=== PATIENT | female | born 1985 | race Caucasian/White ===

== ENCOUNTER 2016-05-01 09:04 | Inpatient (IN) | payer OTHER ==
[2016-05-01] MEDS ORDERED: SODIUM CHLORIDE 1,000 ML IV STA (09:27)
--- NOTE | 2016-05-01 09:28 | PDOC ---
History of Present Illness - General Chief Complaint: Blood Sugar Problem Stated Complaint: ABD PAIN, VOMITING Time Seen by Provider: 05/01/16 09:26 History Source: Patient Exam Limitations: No Limitations - History of Present Illness Initial Comments: 05/01/16 09:27 CHIEF COMPLAINT: Abdominal pain HISTORY OF PRESENT ILLNESS: This is a 31 year old female with IDDM and prior episodes of DKA who presents complaining of generalized abdominal pain and vomiting that woke her from sleep today. She also notes urinary frequency and some incontinence. She did run out of her insulin for about two weeks because of insurance issues, but resumed it earlier this month and has been complaint. She states that he glucose has been well-controlled since then. She attended a family alliance party yesterday and ate a bit more than normal, including rice, but otherwise denies any dietary indiscretions. V/s on arrival are notable for pulse of 122 and RR 24. PCP: Dr. Leal Endocrine: Previously followed with Dr. Beltran REVIEW OF SYSTEMS: GENERAL/CONSTITUTIONAL: Chills, no fever. No weakness. No weight change. HEAD, EYES, EARS, NOSE AND THROAT: No change in vision. No ear pain or discharge. No sore throat. CARDIOVASCULAR: No chest pain or palpitations. RESPIRATORY: No cough, wheezing, or shortness of breath. GASTROINTESTINAL: Generalized abdominal pain, vomiting. GENITOURINARY: Urinary frequency, incontinence. MUSCULOSKELETAL: No joint or muscle swelling or pain. No neck or back pain. SKIN: No rash or easy bruising. NEUROLOGIC: No headache, vertigo, loss of consciousness, or loss of sensation. PSYCHIATRIC: No depression or anxiety. ENDOCRINE: No increased thirst. No abnormal weight change. HEMATOLOGIC/LYMPHATIC: No anemia, easy bleeding, or history of blood clots. ALLERGIC/IMMUNOLOGIC: No hives or skin allergy. No latex allergy. PHYSICAL EXAM: GENERAL: The patient is awake, alert, and fully oriented, in no acute distress. HEAD: Normal with no signs of trauma. ENT: Pupils equal, round and reactive to light, extraocular movements intact, sclera anicteric, conjunctiva clear. Neck supple. LUNGS: Tachypneic. Clear to auscultation bilaterally. Normal excursion. No respiratory distress or use of accessory muscles. CV: RRR, S1/S2, no MRG. Cap refill < 2 sec. ABDOMEN: Soft, non-distended, no focal tenderness. EXTREMITIES: Normal range of motion, no edema. NEUROLOGICAL: Normal speech, normal gait. CN II-XII grossly intact. PSYCH: Normal mood, normal affect. SKIN: Warm, dry, normal turgor, no rashes or lesions noted. Past History - Past Medical History Allergies/Adverse Reactions: Allergies Allergy/AdvReac Type Severity Reaction Status Date / Time No Known Allergies Allergy Verified 05/01/16 09:07 Home Medications: Ambulatory Orders Insulin (Levemir) [Levemir Flexpen -] 30 units SQ DAILY 09/13/14 Insulin Sliding Scale [Novolog Vial Sliding Scale -] 1 vial SQ TIDAC #7 units Anemia: No Asthma: Yes (stable) Cancer: No Cardiac Disorders: No CVA: No COPD: No CHF: No Dementia: No Diabetes: Yes (TYPE 1) GI Disorders: No Disorders: No HTN: No Hypercholesterolemia: No Liver Disease: No Suicide Attempt (Hx): No Seizures: No Thyroid Disease: No - Surgical History Abdominal Surgery: No Appendectomy: No Cardiac Surgery: No Cholecystectomy: No Gastric Stapling: No GI Surgery: No Lung Surgery: No Neurologic Surgery: No Orthopedic Surgery: No - Reproductive History (#): 11 Para: 4 Therapeutic (s) & number: Yes (4) Spontaneous : 2 - Immunization History Td Vaccination: Yes Immunization Up to Date: Yes - Psycho/Social/Smoking Cessation Hx Anxiety: No Suicidal Ideation: No Smoking Status: No Smoking History: Current some day smoker Years of Tobacco Use: 4 Have you smoked in the past 12 months: Yes Number of Cigarettes Smoked Daily: 1 Cigars Per Day: 0 Information on smoking cessation initiated: No 'Breaking Loose' booklet given: 04/14/13 Hx Alcohol Use: No Drug/Substance Use Hx: No Substance Use Type: None, Marijuana *Physical Exam - Vital Signs Last Vital Signs Temp Pulse Resp BP Pulse Ox 97 F L 122 H 18 121/65 100 05/01/16 09:07 05/01/16 09:07 05/01/16 09:07 05/01/16 09:07 05/01/16 09:07 Heart Score/ECG Review - ECG Intrepretation Comment:: 05/01/16 10:10 NSR at 81bpm ED Treatment Course - LABORATORY CBC & Chemistry Diagram: 05/01/16 09:45 05/01/16 09:45 Medical Decision Making - Medical Decision Making 05/01/16 09:42 A/P: 31 year old insulin-dependent diabetic with abdominal pain, vomiting, and tachypnea, r/o DKA. FS 334. 1. EKG (tachycardia) 2. Labs including chemistry, VBG, acetone, UA 3. IV fluids 4. Zofran 4mg IVP for nausea 5. Re-assess 05/01/16 10:11 pH 7.15 HCO3 7 Glucose 387 Gap 23 Insulin gtt started at 6 units/hr 05/01/16 11:17 Approved for ICU admission by Dr. Jacobo. *DC/Admit/Observation/Transfer Diagnosis at time of Disposition: DKA (diabetic ketoacidoses) Qualifiers: Diabetes mellitus type: type 1 Diabetes mellitus complication detail: without coma Qualified Code(s): E10.10 - Type 1 diabetes mellitus with ketoacidosis without coma - Discharge Dispostion Admit: Yes - Referrals Referrals: STAFF,NOT ON [Primary Care Provider] -
[2016-05-01] MEDS ORDERED: ONDANSETRON 4 MG/2 ML VIAL ONE (09:29)
[2016-05-01] MEDS ORDERED: ONDANSETRON 4 MG/2 ML VIAL IVPUSH ONE (09:34)
[2016-05-01 10:08] LABS: VENOUS BLOOD GAS HCO3 7.2 meq/L (19-25)
[2016-05-01 10:09] LABS: VENOUS PH 7.15 (7.32-7.42)
[2016-05-01] MEDS ORDERED: SODIUM CHLORIDE 1,000 ML IV SCH (10:15)
[2016-05-01 10:24] LABS: ALBUMIN 4.6 g/dl (3.4-5.0); ANION GAP 23 (8-16); BILIRUBIN,TOTAL 0.6 mg/dL (0.2-1.0); CALCIUM 9.1 mg/dL (8.5-10.1); CO2 10 mmol/L (21-32); CREATININE 0.9 mg/dL (0.55-1.02); SGPT/ALT 51 U/L (12-78)
[2016-05-01 10:25] LABS: ALK PHOS 199 U/L (45-117); TOT PROT 8.9 g/dl (6.4-8.2)
[2016-05-01 10:39] LABS: URINE APPEARANCE CLEAR; URINE BILIRUBIN NEGATIVE (NEGATIVE); URINE BLOOD NEGATIVE (NEGATIVE); URINE COLOR COLORLESS; URINE GLUCOSE (UA) 3+ (NEGATIVE); URINE KETONE 2+ (NEGATIVE); URINE LEUK ESTERASE NEGATIVE (NEGATIVE); URINE NITRITE NEGATIVE (NEGATIVE); URINE UROBILINOGEN NEGATIVE E.U./dl (0.2-1.0)
[2016-05-01] MEDS ORDERED: MECLIZINE HCL 25 MG TABLET (FP) PO ONE (10:43)
[2016-05-01 10:44] LABS: SGOT/AST 51 U/L (15-37)
[2016-05-01 10:46] LABS: GLUCOSE,RANDOM 387 mg/dL (74-106)
[2016-05-01 10:56] LABS: URINE PROTEIN 1+ (NEGATIVE)
[2016-05-01 11:00] LABS: URINE MUCUS RARE; URINE RBC <1 /hpf (0-3); URINE WBC <1 /hpf (3-5)
[2016-05-01] MEDS ORDERED: INSULIN REGULAR 100 UNITS in SODIUM CHLORIDE 99 ML IVPB SCH ×2 (11:00→13:13)
[2016-05-01] MEDS ORDERED: INSULIN REGULAR HUMAN 100 UNITS/ML *VIAL ONE (11:08)
[2016-05-01 11:29] LABS: BASOPHIL 0.2 % (0-2.0); EOSINOPHIL 0.4 % (0-4.5); MCH 30.9 pg (25.7-33.7); MCHC 32.1 g/dl (32.0-36.0); MEAN CELL VOLUME 96.1 fl (80-96); MEAN PLT VOLUME 10.2 fl (7.5-11.1); NEUTROPHILS 76.3 % (42.8-82.8); PLATELET COUNT 274 K/MM3 (134-434); RDW 14.7 % (11.6-15.6); WHITE BLOOD COUNT 10.7 K/mm3 (4.0-10.0)
[2016-05-01 12:18] VITALS: BMI 27.4
--- NOTE | 2016-05-01 12:30 | EKG ---
Test Reason : Blood Pressure : / mmHG Vent. Rate : 081 BPM Atrial Rate : 081 BPM P-R Int : 154 ms QRS Dur : 090 ms QT Int : 404 ms P-R-T Axes : 056 074 042 degrees QTc Int : 469 ms NORMAL SINUS RHYTHM NORMAL ECG WHEN COMPARED WITH ECG OF 06-JAN-2016 13:32, NO SIGNIFICANT CHANGE WAS FOUND Confirmed by IVELISSE ALICEA MD ([id number]) on 05/01/2016 12:30:19 PM Referred By: Confirmed By:IVELISSE ALICEA MD
--- NOTE | 2016-05-01 13:10 | CONSULT ---
Consultation: REQUESTING PROVIDER: CONSULT REQUEST: We have been asked to medically evaluate this patient for ( specify). HISTORY OF PRESENT ILLNESS: 31 y/o f with significant past medical history of IDDM, came to hospital with pain abdomen, nausea and vomiting. Found to have DKA. In ed patient had recieved 1 L ns and was started to insulin drip. In icu blood sugar was 140, drip changed to d5ns 150ml/hr and insulin decreased to 0.05unit/kg/hr. yesterday she attend some alliance party and and had extra food not using levemir from [facility] ( unable to afford ). since March she was trying to cotrol her blood sugar with novalog Patient states that she had previous episodes DKA. ( last year ) REVIEW OF SYSTEMS: CONSTITUTIONAL: Absent: fever, chills, diaphoresis, generalized weakness, malaise, loss of appetite, weight change HEENT: Absent: rhinorrhea, nasal congestion, throat pain, throat swelling, difficulty swallowing, mouth swelling, ear pain, eye pain, visual changes CARDIOVASCULAR: Absent: chest pain, syncope, palpitations, irregular heart rate, lightheadedness , peripheral edema RESPIRATORY: Absent: cough, shortness of breath, dyspnea with exertion, orthopnea, wheezing, stridor, hemoptysis GASTROINTESTINAL: Absent: abdominal pain, abdominal distension, nausea, vomiting, diarrhea, constipation, melena, hematochezia GENITOURINARY: Absent: dysuria, frequency, urgency, hesitancy, hematuria, flank pain, genital pain MUSCULOSKELETAL: Absent: myalgia, arthralgia, joint swelling, back pain, neck pain SKIN: Absent: rash, itching, pallor HEMATOLOGIC/IMMUNOLOGIC: Absent: easy bleeding, easy bruising, lymphadenopathy, frequent infections ENDOCRINE: Absent: unexplained weight gain, unexplained weight loss, NEUROLOGIC: Absent: headache, focal weakness or paresthesias, PSYCHIATRIC: Absent: anxiety, depression, PHYSICAL EXAMINATION Vital Signs - 24 hr 05/01/16 05/01/16 11:30 11:46 Pulse Rate 94 H Respiratory 18 Rate Blood Pressure 96/51 O2 Sat by Pulse 100 100 Oximetry (%) GENERAL: Awake, alert, and fully oriented, in no acute distress. HEAD: Normal with no signs of trauma. EYES: Pupils equal, round and reactive to light, extraocular movements intact, sclera anicteric, conjunctiva clear. No lid lag. EARS, NOSE, THROAT: Ears normal, nares patent, oropharynx clear without exudates. dry mucous membranes. NECK: Normal range of motion, supple without lymphadenopathy, LUNGS: Breath sounds equal, clear to auscultation bilaterally. No wheezes, and no crackles. No accessory muscle use. HEART: s1s2 normal, tachycardia ABDOMEN: Soft, nontender, not distended, normoactive bowel sounds, no guarding, no rebound, no masses. MUSCULOSKELETAL: Normal range of motion at all joints. No bony deformities or tenderness. No CVA tenderness. UPPER EXTREMITIES: 2+ pulses, warm, well-perfused. No cyanosis. No clubbing. Cap refill <2 seconds. No peripheral edema. LOWER EXTREMITIES: 2+ pulses, warm, well-perfused. No calf tenderness. No peripheral edema. NEUROLOGICAL: Cranial nerves II-XII intact. Normal speech PSYCHIATRIC: Cooperative. Good eye contact. Appropriate mood and affect. SKIN: Warm, dry, Laboratory Results - last 24 hr 05/01/16 12:07 POC Glucometer 140.02619 Active Medications Generic Name Dose Route Start Last Admin Trade Name Freq PRN Reason Stop Dose Admin Sodium Chloride 1,000 mls @ 125 mls/hr 05/01/16 10:15 05/01/16 10:19 Normal Saline - IV 125 mls/hr ASDIR WILEY Administration Insulin Human Regular 100 100 mls @ 6.8 mls/hr 05/01/16 11:00 05/01/16 11:15 units/ Sodium Chloride IVPB 6.8 mls/hr TITR WILEY Administration Protocol 0.1 UNITS/KG/HR Influenza Virus Vaccine 45 mcg 05/01/16 14:30 Fluvirin IM 05/01/16 14:31 .ONCE ONE CBCD WBC 10.7 K/mm3 (4.0-10.0) H D 05/01/16 09:45 RBC 5.36 M/mm3 (3.60-5.2) H D 05/01/16 09:45 Hgb 16.6 GM/dL (10.7-15.3) H D 05/01/16 09:45 Hct 51.5 % (32.4-45.2) H D 05/01/16 09:45 MCV 96.1 fl (80-96) H 05/01/16 09:45 MCHC 32.1 g/dl (32.0-36.0) 05/01/16 09:45 RDW 14.7 % (11.6-15.6) 05/01/16 09:45 Plt Count 274 K/MM3 (134-434) D 05/01/16 09:45 MPV 10.2 fl (7.5-11.1) 05/01/16 09:45 CMP Sodium 143 mmol/L (136-145) 05/01/16 13:40 Potassium 3.7 mmol/L (3.5-5.1) D 05/01/16 13:40 Chloride 113 mmol/L (98-107) H D 05/01/16 13:40 Carbon Dioxide 18 mmol/L (21-32) L D 05/01/16 13:40 Anion Gap 12 (8-16) 05/01/16 13:40 BUN 13 mg/dL (7-18) 05/01/16 13:40 Creatinine 0.6 mg/dL (0.55-1.02) D 05/01/16 13:40 Creat Clearance w eGFR > 60 (>60) 05/01/16 09:45 Random Glucose 66 mg/dL (74-106) L D 05/01/16 13:40 Calcium 7.5 mg/dL (8.5-10.1) L 05/01/16 13:40 Total Bilirubin 0.6 mg/dL (0.2-1.0) D 05/01/16 09:45 AST 51 U/L (15-37) H D 05/01/16 09:45 ALT 51 U/L (12-78) D 05/01/16 09:45 Alkaline Phosphatase 199 U/L (45-117) H D 05/01/16 09:45 Total Protein 8.9 g/dl (6.4-8.2) H D 05/01/16 09:45 Albumin 4.6 g/dl (3.4-5.0) D 05/01/16 09:45 ASSESSMENT/PLAN: dka gap closed blood sugar 113 start on diabetic diet, start on novalog sliding scale start on levemir home dose stop iv insulin drip monitor blood sugar follow hba1c monitor vitals nausea/ vomiting could be due to DKA or gastroperesis zofran 4mg q6h prn fluid on d5 1/2 ns with 20meq kcl, will stop after 2 hours electrolyte : follow potassium nutrition : diabetic diet dvt pro ; heparin sq gi pro : protonix Dispo: We will continue to follow the patient. Thank you for this consultative opportunity. Visit type - Emergency Visit Emergency Visit: Yes ED Registration Date: 05/01/16 Care time: The patient presented to the Emergency Department on the above date and was hospitalized for further evaluation of their emergent condition. - New Patient This patient is new to me today: Yes Date on this admission: 05/01/16 - Critical Care Critical Care patient: Yes Total Critical Care Time (in minutes): 45 Critical Care Statement: The care of this patient involved high complexity decision making to prevent further life threatening deterioration of the patient 's condition and/or to evalute & treat vital organ system(s) failure or risk of failure.
[2016-05-01] MEDS ORDERED: D5-NS + 20 MEQ KCL - 1,000 ML IV SCH (13:15)
[2016-05-01 13:38] LABS: ACETONE SERUM POSITIVE LARGE 3+ (NEGATIVE)
[2016-05-01 14:12] LABS: CALCIUM 7.5 mg/dL (8.5-10.1); CREATININE 0.6 mg/dL (0.55-1.02)
[2016-05-01] MEDS ORDERED: INFLUENZA VACCINE 45 MCG/0.5 ML (MDV 16-17) IM ONE (14:30)
[2016-05-01] MEDS ORDERED: ONDANSETRON 4 MG/2 ML VIAL IVPUSH PRN (14:36)
--- NOTE | 2016-05-01 16:32 | PN ---
Teaching Attending Note Name of Resident: Ford Webb ATTENDING PHYSICIAN STATEMENT I saw and evaluated the patient. I reviewed the resident's note and discussed the case with the resident. I agree with the resident's findings and plan as documented. SUBJECTIVE: Patient seen and examined in the ICU. Insulin drip due to DKA by lab criteria. No CP or SOB. No travel history or sick contacts. Intake & Output 04/28/16 04/29/16 04/30/16 05/01/16 23:59 23:59 23:59 23:59 Weight 155 lb Last Vital Signs Temp Pulse Resp BP Pulse Ox 97 F L 94 H 18 96/51 100 05/01/16 09:07 05/01/16 11:30 05/01/16 11:30 05/01/16 11:30 05/01/16 11:46 Active Medications Heparin Sodium (Porcine) (Heparin -) 5,000 unit SQ TID WILEY Insulin Human Regular 100 (units/ Sodium Chloride) 100 mls @ 3.51 mls/hr IVPB TITR WILEY; 0.05 UNITS/KG/HR PRN Reason: Protocol Last Admin: 05/01/16 15:35 Dose: Not Given Dextrose/Sodium Chloride (Dextrose 5%-Normal Saline+20 Meq Kcl -) 1,000 mls @ 150 mls/hr IV ASDIR [facility] Last Admin: 05/01/16 13:00 Dose: 150 mls/hr Pantoprazole Sodium (Protonix 40mg Ivpb (Pre-Docked)) 100 mls @ 200 mls/hr IVPB DAILY WILEY Insulin Aspart (Novolog Vial Sliding Scale -) 1 vial SQ ACHS WILEY PRN Reason: Protocol Insulin Detemir (Levemir Vial) 30 units SQ HS [facility]LEY Ondansetron HCl (Zofran Injection) 4 mg IVPUSH Q6H PRN PRN Reason: NAUSEA AND/OR VOMITING GENERAL: Awake, alert, and fully oriented, NAD HEAD: Normal with no signs of trauma. EYES: Pupils equal, round and reactive to light, extraocular movements intact, sclera anicteric, conjunctiva clear. No lid lag. EARS, NOSE, THROAT: Ears normal, nares patent, oropharynx clear without exudates. dry mucous membranes. NECK: Normal range of motion, supple without lymphadenopathy, LUNGS: Breath sounds equal, clear to auscultation bilaterally. HEART: S1S2 ABDOMEN: Soft, nontender, not distended, normoactive bowel sounds, no guarding, no rebound, no masses. MUSCULOSKELETAL: Normal range of motion at all joints. No bony deformities or tenderness. No CVA tenderness. UPPER EXTREMITIES: 2+ pulses, warm, well-perfused. No cyanosis. No clubbing. Cap refill <2 seconds. No peripheral edema. LOWER EXTREMITIES: 2+ pulses, warm, well-perfused. No calf tenderness. No peripheral edema. NEUROLOGICAL: Non-focal PSYCHIATRIC: Cooperative. Good eye contact. Appropriate mood and affect. SKIN: Warm, dry, Laboratory Results - last 24 hr 05/01/16 05/01/16 05/01/16 09:42 09:45 09:45 WBC 10.7 H D RBC 5.36 H D Hgb 16.6 H D Hct 51.5 H D MCV 96.1 H MCHC 32.1 RDW 14.7 Plt Count 274 D MPV 10.2 Neutrophils % 76.3 Lymphocytes % 19.9 Monocytes % 3.2 L Eosinophils % 0.4 D Basophils % 0.2 VBG pH POC VBG pCO2 POC VBG pO2 Mixed VBG HCO3 Sodium 134 L Potassium 4.7 D Chloride 101 Carbon Dioxide 10 L D Anion Gap 23 H BUN 16 D Creatinine 0.9 D Creat Clearance w eGFR > 60 POC Glucometer 334.58516 Random Glucose 387 H* D Calcium 9.1 Total Bilirubin 0.6 D AST 51 H D ALT 51 D Alkaline Phosphatase 199 H D Total Protein 8.9 H D Albumin 4.6 D Serum , Qual Urine Color Urine Appearance Urine pH Ur Specific [place] Urine Protein Urine Glucose (UA) Urine Ketones Urine Blood Urine Nitrite Urine Bilirubin Urine Urobilinogen Ur Leukocyte Esterase Urine RBC Urine WBC Ur Epithelial Cells Urine Mucus Acetone, Qual Positive large 3+ H 05/01/16 05/01/16 05/01/16 09:45 10:04 12:07 WBC RBC Hgb Hct MCV MCHC RDW Plt Count MPV Neutrophils % Lymphocytes % Monocytes % Eosinophils % Basophils % VBG pH 7.15 L* D POC VBG pCO2 21.6 L D POC VBG pO2 51.3 H D Mixed VBG HCO3 7.2 L* Sodium Potassium Chloride Carbon Dioxide Anion Gap BUN Creatinine Creat Clearance w eGFR POC Glucometer 140.22778 Random Glucose Calcium Total Bilirubin AST ALT Alkaline Phosphatase Total Protein Albumin Serum , Qual Negative Urine Color Colorless Urine Appearance Clear Urine pH 5.0 Ur Specific [place] 1.027 Urine Protein 1+ H Urine Glucose (UA) 3+ H Urine Ketones 2+ H Urine Blood Negative Urine Nitrite Negative Urine Bilirubin Negative Urine Urobilinogen Negative Ur Leukocyte Esterase Negative Urine RBC <1 Urine WBC <1 Ur Epithelial Cells Rare Urine Mucus Rare Acetone, Qual 05/01/16 13:40 WBC RBC Hgb Hct MCV MCHC RDW Plt Count MPV Neutrophils % Lymphocytes % Monocytes % Eosinophils % Basophils % VBG pH POC VBG pCO2 POC VBG pO2 Mixed VBG HCO3 Sodium 143 Potassium 3.7 D Chloride 113 H D Carbon Dioxide 18 L D Anion Gap 12 BUN 13 Creatinine 0.6 D Creat Clearance w eGFR POC Glucometer Random Glucose 66 L D Calcium 7.5 L Total Bilirubin AST ALT Alkaline Phosphatase Total Protein Albumin Serum , Qual Urine Color Urine Appearance Urine pH Ur Specific [place] Urine Protein Urine Glucose (UA) Urine Ketones Urine Blood Urine Nitrite Urine Bilirubin Urine Urobilinogen Ur Leukocyte Esterase Urine RBC Urine WBC Ur Epithelial Cells Urine Mucus Acetone, Qual ASSESSMENT/PLAN: DKA Probable DM gastroparesis IV Insulin Follow BGM DM diet Strict I&O Daily weights Zofran PRN VTE prophylaxis Dr Jacobo CCTime 35"
[2016-05-01] MEDS: INSULIN SLIDING SCALE (NOVOLOG) 1 VIAL SQ SCH ×2 (17:41→22:07)
--- NOTE | 2016-05-01 20:57 | HP ---
Admitting History and Physical - Primary Care Physician PCP: Bill Sebastian - Admission History of Present Illness: 31 year old female with IDDM and prior episodes of DKA who presents complaining of generalized abdominal pain and vomiting that woke her from sleep today. She also notes urinary frequency and some incontinence. She did run out of her insulin for about two weeks because of insurance issues, but resumed it earlier this month and has been complaint. She states that he glucose has been well-controlled since then. She attended a family republican yesterday and ate a bit more than normal, including rice. - Past Medical History Pulmonary: Yes: Asthma ...LMP: 04/20/12 Endocrine: Yes: Diabetes Mellitus - Smoking History Smoking history: Current some day smoker Have you smoked in the past 12 months: Yes Aproximately how many cigarettes per day: 1 - Alcohol/Substance Use Hx Alcohol Use: No Home Medications - Allergies Allergies/Adverse Reactions: Allergies Allergy/AdvReac Type Severity Reaction Status Date / Time No Known Allergies Allergy Verified 05/01/16 09:07 - Home Medications Home Medications: Ambulatory Orders Insulin (Levemir) [Levemir Flexpen -] 30 units SQ DAILY 09/13/14 Insulin Sliding Scale [Novolog Vial Sliding Scale -] 1 vial SQ TIDAC #7 units Family Disease History - Family Disease History Family Disease History: Diabetes: Father Physical Examination Vital Signs: Vital Signs Temperature 98.6 F 05/01/16 12:15 Pulse Rate 87 05/01/16 18:59 Respiratory Rate 18 05/01/16 18:59 Blood Pressure 127/69 05/01/16 18:59 O2 Sat by Pulse Oximetry (%) 100 05/01/16 20:11 Constitutional: Yes: No Distress HENT: Yes: Atraumatic Neck: Yes: Supple Cardiovascular: Yes: Regular Rate and Rhythm Respiratory: Yes: CTA Bilaterally Gastrointestinal: Yes: Normal Bowel Sounds Extremities: Yes: WNL Neurological: Yes: Alert, Oriented Labs: CBC, BMP 05/01/16 13:40 Problem List - Problems (1) DKA (diabetic ketoacidoses) Assessment/Plan: iv fluids iv insulin bgms FU LABS IN AM Code(s): E13.10 - OTH DIABETES MELLITUS WITH KETOACIDOSIS WITHOUT COMA Qualifiers: Diabetes mellitus type: type 1 Diabetes mellitus complication detail: without coma Qualified Code(s): E10.10 - Type 1 diabetes mellitus with ketoacidosis without coma (2) Asthma Assessment/Plan: stable continue home meds Code(s): J45.909 - UNSPECIFIED ASTHMA, UNCOMPLICATED (3) Diabetes Code(s): E11.9 - TYPE 2 DIABETES MELLITUS WITHOUT COMPLICATIONS (4) Diabetic gastropathy Assessment/Plan: COULD BE THE REASON FOR VOMITTING AFTER FOOD Code(s): E11.69 - TYPE 2 DIABETES MELLITUS WITH OTHER SPECIFIED COMPLICATION K31.9 - DISEASE OF STOMACH AND DUODENUM, UNSPECIFIED Assessment/Plan Laboratory Tests 05/01/16 05/01/16 05/01/16 09:42 09:45 09:45 WBC 10.7 H D RBC 5.36 H D Hgb 16.6 H D Hct 51.5 H D MCV 96.1 H MCHC 32.1 RDW 14.7 Plt Count 274 D MPV 10.2 Neutrophils % 76.3 Lymphocytes % 19.9 Monocytes % 3.2 L Eosinophils % 0.4 D Basophils % 0.2 VBG pH POC VBG pCO2 POC VBG pO2 Mixed VBG HCO3 Sodium 134 L Potassium 4.7 D Chloride 101 Carbon Dioxide 10 L D Anion Gap 23 H BUN 16 D Creatinine 0.9 D Creat Clearance w eGFR > 60 POC Glucometer 334.26840 Random Glucose 387 H* D Calcium 9.1 Total Bilirubin 0.6 D AST 51 H D ALT 51 D Alkaline Phosphatase 199 H D Total Protein 8.9 H D Albumin 4.6 D Serum , Qual Urine Color Urine Appearance Urine pH Ur Specific [place] Urine Protein Urine Glucose (UA) Urine Ketones Urine Blood Urine Nitrite Urine Bilirubin Urine Urobilinogen Ur Leukocyte Esterase Urine RBC Urine WBC Ur Epithelial Cells Urine Mucus Acetone, Qual Positive large 3+ H 05/01/16 05/01/16 05/01/16 09:45 10:04 12:07 WBC RBC Hgb Hct MCV MCHC RDW Plt Count MPV Neutrophils % Lymphocytes % Monocytes % Eosinophils % Basophils % VBG pH 7.15 L* D POC VBG pCO2 21.6 L D POC VBG pO2 51.3 H D Mixed VBG HCO3 7.2 L* Sodium Potassium Chloride Carbon Dioxide Anion Gap BUN Creatinine Creat Clearance w eGFR POC Glucometer 140.75639 Random Glucose Calcium Total Bilirubin AST ALT Alkaline Phosphatase Total Protein Albumin Serum , Qual Negative Urine Color Colorless Urine Appearance Clear Urine pH 5.0 Ur Specific [place] 1.027 Urine Protein 1+ H Urine Glucose (UA) 3+ H Urine Ketones 2+ H Urine Blood Negative Urine Nitrite Negative Urine Bilirubin Negative Urine Urobilinogen Negative Ur Leukocyte Esterase Negative Urine RBC <1 Urine WBC <1 Ur Epithelial Cells Rare Urine Mucus Rare Acetone, Qual 05/01/16 05/01/16 05/01/16 13:28 13:40 14:22 WBC RBC Hgb Hct MCV MCHC RDW Plt Count MPV Neutrophils % Lymphocytes % Monocytes % Eosinophils % Basophils % VBG pH POC VBG pCO2 POC VBG pO2 Mixed VBG HCO3 Sodium 143 Potassium 3.7 D Chloride 113 H D Carbon Dioxide 18 L D Anion Gap 12 BUN 13 Creatinine 0.6 D Creat Clearance w eGFR POC Glucometer 68.91051 113.84749 Random Glucose 66 L D Calcium 7.5 L Total Bilirubin AST ALT Alkaline Phosphatase Total Protein Albumin Serum , Qual Urine Color Urine Appearance Urine pH Ur Specific [place] Urine Protein Urine Glucose (UA) Urine Ketones Urine Blood Urine Nitrite Urine Bilirubin Urine Urobilinogen Ur Leukocyte Esterase Urine RBC Urine WBC Ur Epithelial Cells Urine Mucus Acetone, Qual 05/01/16 16:59 WBC RBC Hgb Hct MCV MCHC RDW Plt Count MPV Neutrophils % Lymphocytes % Monocytes % Eosinophils % Basophils % VBG pH POC VBG pCO2 POC VBG pO2 Mixed VBG HCO3 Sodium Potassium Chloride Carbon Dioxide Anion Gap BUN Creatinine Creat Clearance w eGFR POC Glucometer 168.96328 Random Glucose Calcium Total Bilirubin AST ALT Alkaline Phosphatase Total Protein Albumin Serum , Qual Urine Color Urine Appearance Urine pH Ur Specific [place] Urine Protein Urine Glucose (UA) Urine Ketones Urine Blood Urine Nitrite Urine Bilirubin Urine Urobilinogen Ur Leukocyte Esterase Urine RBC Urine WBC Ur Epithelial Cells Urine Mucus Acetone, Qual Active Medications Generic Name Dose Route Start Last Admin Trade Name Freq PRN Reason Stop Dose Admin Heparin Sodium (Porcine) 5,000 unit 05/01/16 22:00 Heparin - SQ TID [facility] Insulin Human Regular 100 100 mls @ 3.51 mls/hr 05/01/16 13:13 05/01/16 15:35 units/ Sodium Chloride IVPB Not Given TITR [facility] Protocol 0.05 UNITS/KG/HR Dextrose/Sodium Chloride 1,000 mls @ 150 mls/hr 05/01/16 13:15 05/01/16 13:00 Dextrose 5%-Normal Saline+20 Meq Kcl - IV 150 mls/hr ASDIR WILEY Administration Pantoprazole Sodium 100 mls @ 200 mls/hr 05/02/16 10:00 Protonix 40mg Ivpb (Pre-Docked) IVPB DAILY [facility] Insulin Aspart 1 vial 05/01/16 16:30 05/01/16 17:41 Novolog Vial Sliding Scale - SQ 2 units ACHS WILEY Administration Protocol Insulin Detemir 30 units 05/01/16 22:00 Levemir Vial SQ HS [facility] Ondansetron HCl 4 mg 05/01/16 14:36 Zofran Injection IVPUSH Q6H PRN NAUSEA AND/OR VOMITING
[2016-05-01] MEDS ORDERED: ACETAMINOPHEN 325 MG TABLET (FP) PO ONE (21:03)
[2016-05-01] MEDS ORDERED: IBUPROFEN 400 MG TABLET (FP) PO ONE (21:04)
[2016-05-01] MEDS: HEPARIN NA (PORCINE) 5,000 UNITS/ML 1ML VIAL SQ SCH (21:50)
[2016-05-01] MEDS ORDERED: INSULIN DETEMIR 100 UNITS/ML MDV SQ SCH (22:00)
[2016-05-02 06:25] LABS: BASOPHIL 0.7 % (0-2.0); EOSINOPHIL 2.4 % (0-4.5); MCH 30.8 pg (25.7-33.7); MEAN CELL VOLUME 90.7 fl (80-96); MEAN PLT VOLUME 9.6 fl (7.5-11.1); NEUTROPHILS 47.5 % (42.8-82.8); PLATELET COUNT 171 K/MM3 (134-434); RDW 13.6 % (11.6-15.6); WHITE BLOOD COUNT 4.4 K/mm3 (4.0-10.0)
[2016-05-02] MEDS: INSULIN SLIDING SCALE (NOVOLOG) 1 VIAL SQ SCH ×2 (06:30→12:07)
[2016-05-02] MEDS: HEPARIN NA (PORCINE) 5,000 UNITS/ML 1ML VIAL SQ SCH ×3 (06:32→21:12)
[2016-05-02 06:50] LABS: CALCIUM 7.5 mg/dL (8.5-10.1); CREATININE 0.6 mg/dL (0.55-1.02)
[2016-05-02] MEDS ORDERED: ALBUTEROL SO4 2.5/IPRATROPIUM 0.5 INH SOL 3 ML VIAL.NEB. NEB PRN ×2 (06:58→13:03)
[2016-05-02] MEDS ORDERED: PANTOPRAZOLE SODIUM 100 ML IVPB SCH (10:00)
[2016-05-02] MEDS ORDERED: PANTOPRAZOLE 40 MG TABLET (FP) PO SCH (10:00)
[2016-05-02] MEDS ORDERED: IBUPROFEN 400 MG TABLET (FP) PO ONE (10:45)
[2016-05-02] MEDS ORDERED: ONDANSETRON 4 MG/2 ML VIAL IVPUSH PRN (13:03)
--- NOTE | 2016-05-02 13:19 | PN ---
Teaching Attending Note Name of Resident: Ford Webb ATTENDING PHYSICIAN STATEMENT I saw and evaluated the patient. I reviewed the resident's note and discussed the case with the resident. I agree with the resident's findings and plan as documented. SUBJECTIVE: Patient seen and examined in the ICU. Remains off IV Insulin drip. No CP or SOB. Intake & Output 04/29/16 04/30/16 05/01/16 05/02/16 23:59 23:59 23:59 23:59 Intake Total 2800 Balance 2800 Weight 155 lb Last Vital Signs Temp Pulse Resp BP Pulse Ox 98.6 F 78 18 125/104 100 05/02/16 06:00 05/02/16 12:00 05/02/16 12:00 05/02/16 12:00 05/02/16 07:46 Active Medications Albuterol/Ipratropium (Duoneb -) 1 amp NEB Q6H PRN PRN Reason: SHORTNESS OF BREATH Heparin Sodium (Porcine) (Heparin -) 5,000 unit SQ TID [facility] Insulin Aspart (Novolog Vial Sliding Scale -) 1 vial SQ ACHS [facility] PRN Reason: Protocol Insulin Detemir (Levemir Vial) 30 units SQ HS [facility] Ondansetron HCl (Zofran Injection) 4 mg IVPUSH Q6H PRN PRN Reason: NAUSEA AND/OR VOMITING Pantoprazole Sodium (Protonix -) 40 mg PO DAILY [facility] GENERAL: Awake, alert, and fully oriented, NAD HEAD: Normal with no signs of trauma. EYES: sclera anicteric, conjunctiva clear EARS, NOSE, THROAT: dry mucous membranes. NECK: Normal range of motion, supple without lymphadenopathy, LUNGS: Breath sounds equal, clear to auscultation bilaterally. HEART: S1S2 ABDOMEN: Soft, nontender, not distended, normoactive bowel sounds, no guarding, no rebound, no masses. MUSCULOSKELETAL: Normal range of motion UPPER EXTREMITIES: 2+ pulses, warm, well-perfused. LOWER EXTREMITIES: 2+ pulses, warm, well-perfused. NEUROLOGICAL: Non-focal PSYCHIATRIC: Cooperative. Good eye contact. Appropriate mood and affect. SKIN: Warm, dry, Laboratory Results - last 24 hr 05/01/16 05/01/16 05/01/16 09:45 13:28 13:40 WBC RBC Hgb Hct MCV MCHC RDW Plt Count MPV Neutrophils % Lymphocytes % Monocytes % Eosinophils % Basophils % Sodium 143 Potassium 3.7 D Chloride 113 H D Carbon Dioxide 18 L D Anion Gap 12 BUN 13 Creatinine 0.6 D POC Glucometer 68.17845 Random Glucose 66 L D Calcium 7.5 L Acetone, Qual Positive large 3+ H 05/01/16 05/01/16 05/01/16 14:22 16:59 21:00 WBC RBC Hgb Hct MCV MCHC RDW Plt Count MPV Neutrophils % Lymphocytes % Monocytes % Eosinophils % Basophils % Sodium Potassium Chloride Carbon Dioxide Anion Gap BUN Creatinine POC Glucometer 113.48350 168.08491 340.66224 Random Glucose Calcium Acetone, Qual 05/02/16 05/02/16 05/02/16 05:15 05:15 05:54 WBC 4.4 D RBC 3.98 D Hgb 12.3 D Hct 36.1 D MCV 90.7 MCHC 34.0 RDW 13.6 Plt Count 171 D MPV 9.6 Neutrophils % 47.5 D Lymphocytes % 42.9 H D Monocytes % 6.5 D Eosinophils % 2.4 D Basophils % 0.7 D Sodium 140 Potassium 3.9 Chloride 110 H Carbon Dioxide 20 L Anion Gap 10 BUN 14 Creatinine 0.6 POC Glucometer 203.45964 Random Glucose 197 H D Calcium 7.5 L Acetone, Qual ASSESSMENT/PLAN: DKA Probable DM gastroparesis Insulin per Endo Follow BGM DM diet Strict I&O Daily weights Zofran PRN VTE prophylaxis Dr Jacobo
--- NOTE | 2016-05-02 13:20 | CONSULT ---
Consult Consult Specialty:: Endocrinology Referred by:: Dr Sebastian Reason for Consultation:: DKA - History of Present Illness Chief Complaint: Vomiting, Diarrhoea History of Present Illness: This is a 31 year old female with h/o of DM since 2013 with episode of DKA in 2016 who presented to ED with c/o of generalized abdominal pain, diarrhoea and vomiting. She also notes urinary frequency and some incontinence. She ran out of her insulin for about 3 weeks ago because of insurance issues but got some Novolog from her father in law which she has been using. BGM at home < 200s when she was taking Insulin. She attended a family green party yesterday and ate a bit more than normal, including rice, but otherwise denies any dietary indiscretions. - History Source History Provided By: Patient Limitations to Obtaining History: No Limitations - Past Medical History Pulmonary: Yes: Asthma ...LMP: 04/20/12 Endocrine: Yes: Diabetes Mellitus - Alcohol/Substance Use Hx Alcohol Use: No - Smoking History Smoking history: Current some day smoker Have you smoked in the past 12 months: Yes Aproximately how many cigarettes per day: 1 Home Medications - Allergies Allergies/Adverse Reactions: Allergies Allergy/AdvReac Type Severity Reaction Status Date / Time No Known Allergies Allergy Verified 05/01/16 09:07 - Home Medications Home Medications: Ambulatory Orders Insulin (Levemir) [Levemir Flexpen -] 30 units SQ DAILY 09/13/14 Insulin Sliding Scale [Novolog Vial Sliding Scale -] 1 vial SQ TIDAC #7 units Family Disease History - Family Disease History Family Disease History: Diabetes: Father Review of Systems - Review of Systems Constitutional: reports: Malaise Eyes: reports: No Symptoms HENT: reports: No Symptoms Neck: reports: No Symptoms Cardiovascular: reports: No Symptoms Respiratory: reports: No Symptoms Gastrointestinal: reports: No Symptoms Genitourinary: reports: No Symptoms Musculoskeletal: reports: No Symptoms Endocrine: reports: No Symptoms Hematology/Lymphatic: reports: No Symptoms Physical Exam Vital Signs: Vital Signs Temperature 98.6 F 05/02/16 06:00 Pulse Rate 78 05/02/16 12:00 Respiratory Rate 18 05/02/16 12:00 Blood Pressure 125/104 05/02/16 12:00 O2 Sat by Pulse Oximetry (%) 100 05/02/16 07:46 Constitutional: Yes: No Distress, Calm Eyes: Yes: Conjunctiva Clear, EOM Intact HENT: Yes: Atraumatic, Normocephalic Neck: Yes: Supple, Trachea Midline Cardiovascular: Yes: Regular Rate and Rhythm Respiratory: Yes: Regular, CTA Bilaterally Gastrointestinal: Yes: Normal Bowel Sounds, Soft Renal/: Yes: WNL Musculoskeletal: Yes: WNL Extremities: Yes: WNL Edema: No Neurological: Yes: Alert, Oriented Labs: CBC, BMP 05/02/16 05:15 05/02/16 05:15 Problem List - Problems (1) DKA (diabetic ketoacidoses) Code(s): E13.10 - OTH DIABETES MELLITUS WITH KETOACIDOSIS WITHOUT COMA Qualifiers: Diabetes mellitus type: type 1 Diabetes mellitus complication detail: without coma Qualified Code(s): E10.10 - Type 1 diabetes mellitus with ketoacidosis without coma (2) Diabetes Code(s): E11.9 - TYPE 2 DIABETES MELLITUS WITHOUT COMPLICATIONS Assessment/Plan AP DKA DM Diet Exercise discussed Discussed need for compliance with Insulin Levemir 14 BID Novolog SS coverage Nutrition consult CMP, Mag, Phos in a.m. C peptide, CASH Ab as outpt.
--- NOTE | 2016-05-02 13:36 | PN ---
Physical Exam: SUBJECTIVE: Patient seen and examined, patient feels better, denies nausea vomiting. accepting oral diet. OBJECTIVE: Vital Signs Period Temp Pulse Resp BP Sys/Jaramillo Pulse Ox Last 24 Hr 98.6 F-98.9 F 65-96 13-19 84-131/38-104 100-100 GENERAL: Awake, alert, and fully oriented, in no acute distress. HEAD: Normal with no signs of trauma. EARS, NOSE, THROAT: moist mucous membranes. NECK: Normal range of motion, supple without lymphadenopathy, LUNGS: Breath sounds equal, clear to auscultation bilaterally. No wheezes, and no crackles. No accessory muscle use. HEART: s1s2 normal, tachycardia ABDOMEN: Soft, nontender, not distended, normoactive bowel sounds, no guarding, no rebound, no masses. MUSCULOSKELETAL: Normal range of motion at all joints. No bony deformities or tenderness. No CVA tenderness. UPPER EXTREMITIES: 2+ pulses, warm, well-perfused. No cyanosis. No clubbing. Cap refill <2 seconds. No peripheral edema. LOWER EXTREMITIES: 2+ pulses, warm, well-perfused. No calf tenderness. No peripheral edema. NEUROLOGICAL: Cranial nerves II-XII intact. Normal speech PSYCHIATRIC: Cooperative. Good eye contact. Appropriate mood and affect. SKIN: Warm, Laboratory Results - last 24 hr 05/01/16 05/01/16 05/01/16 13:28 13:40 14:22 WBC RBC Hgb Hct MCV MCHC RDW Plt Count MPV Neutrophils % Lymphocytes % Monocytes % Eosinophils % Basophils % Sodium 143 Potassium 3.7 D Chloride 113 H D Carbon Dioxide 18 L D Anion Gap 12 BUN 13 Creatinine 0.6 D POC Glucometer 68.31919 113.52260 Random Glucose 66 L D Calcium 7.5 L 05/01/16 05/01/16 05/02/16 16:59 21:00 05:15 WBC 4.4 D RBC 3.98 D Hgb 12.3 D Hct 36.1 D MCV 90.7 MCHC 34.0 RDW 13.6 Plt Count 171 D MPV 9.6 Neutrophils % 47.5 D Lymphocytes % 42.9 H D Monocytes % 6.5 D Eosinophils % 2.4 D Basophils % 0.7 D Sodium Potassium Chloride Carbon Dioxide Anion Gap BUN Creatinine POC Glucometer 168.95232 340.62437 Random Glucose Calcium 05/02/16 05/02/16 05/02/16 05:15 05:54 11:58 WBC RBC Hgb Hct MCV MCHC RDW Plt Count MPV Neutrophils % Lymphocytes % Monocytes % Eosinophils % Basophils % Sodium 140 Potassium 3.9 Chloride 110 H Carbon Dioxide 20 L Anion Gap 10 BUN 14 Creatinine 0.6 POC Glucometer 203.74013 303.14165 Random Glucose 197 H D Calcium 7.5 L 05/02/16 13:16 WBC RBC Hgb Hct MCV MCHC RDW Plt Count MPV Neutrophils % Lymphocytes % Monocytes % Eosinophils % Basophils % Sodium Potassium Chloride Carbon Dioxide Anion Gap BUN Creatinine POC Glucometer 275.23090 Random Glucose Calcium Active Medications Generic Name Dose Route Start Last Admin Trade Name Freq PRN Reason Stop Dose Admin Albuterol/Ipratropium 1 amp 05/02/16 13:03 Duoneb - NEB Q6H PRN SHORTNESS OF BREATH Heparin Sodium (Porcine) 5,000 unit 05/02/16 14:00 Heparin - SQ TID [facility] Insulin Aspart 1 vial 05/02/16 16:30 Novolog Vial Sliding Scale - SQ ACHS [facility] Protocol Ondansetron HCl 4 mg 05/02/16 13:03 Zofran Injection IVPUSH Q6H PRN NAUSEA AND/OR VOMITING Pantoprazole Sodium 40 mg 05/03/16 10:00 Protonix - PO DAILY [facility] ASSESSMENT/PLAN: dka resolved on slinding scale novalog on levemir 14 bid monitor blood glucose diabetic diet endo consult appreciated nausea/ vomiting resolved zofran 4mg q6h prn h/o asthma not active on duoneb prn fluid orally allowed electrolyte : repeat in am nutrition : diabetic diet dvt pro; heparin sq gi pro : protonix transfer to med surg Visit type - Emergency Visit Emergency Visit: Yes ED Registration Date: 05/01/16 Care time: The patient presented to the Emergency Department on the above date and was hospitalized for further evaluation of their emergent condition. - New Patient This patient is new to me today: No - Critical Care Critical Care patient: Yes Total Critical Care Time (in minutes): 45 Critical Care Statement: The care of this patient involved high complexity decision making to prevent further life threatening deterioration of the patient 's condition and/or to evalute & treat vital organ system(s) failure or risk of failure.
[2016-05-02] MEDS ORDERED: INSULIN SLIDING SCALE (NOVOLOG) 1 VIAL SQ SCH ×2 (16:30→22:00)
[2016-05-02] MEDS: INSULIN DETEMIR 100 UNITS/ML MDV SQ SCH (17:03)
--- NOTE | 2016-05-02 19:04 | PN ---
Progress Note, Physician - Current Medication List Current Medications: Active Medications Albuterol/Ipratropium (Duoneb -) 1 amp NEB Q6H PRN PRN Reason: SHORTNESS OF BREATH Heparin Sodium (Porcine) (Heparin -) 5,000 unit SQ TID [facility] Last Admin: 05/02/16 16:06 Dose: 5,000 unit Insulin Aspart (Novolog Vial Sliding Scale -) 1 vial SQ TIDAC [facility] PRN Reason: Protocol Insulin Aspart (Novolog Vial Sliding Scale -) 1 vial SQ HS [facility] PRN Reason: Protocol Insulin Detemir (Levemir Vial) 14 units SQ BIDAC [facility] Last Admin: 05/02/16 17:03 Dose: 14 units Ondansetron HCl (Zofran Injection) 4 mg IVPUSH Q6H PRN PRN Reason: NAUSEA AND/OR VOMITING Pantoprazole Sodium (Protonix -) 40 mg PO DAILY [facility] - Objective Vital Signs: Vital Signs Temperature 97.2 F L 05/02/16 16:00 Pulse Rate 80 05/02/16 18:00 Respiratory Rate 18 05/02/16 18:00 Blood Pressure 119/71 05/02/16 18:00 O2 Sat by Pulse Oximetry (%) 100 05/02/16 07:46 Constitutional: Yes: No Distress HENT: Yes: Atraumatic Neck: Yes: Supple Cardiovascular: Yes: Regular Rate and Rhythm Respiratory: Yes: CTA Bilaterally Gastrointestinal: Yes: Normal Bowel Sounds Extremities: Yes: WNL Neurological: Yes: Alert, Oriented Labs: CBC, BMP 05/02/16 05:15 05/02/16 05:15 Problem List - Problems (1) DKA (diabetic ketoacidoses) Code(s): E13.10 - OTH DIABETES MELLITUS WITH KETOACIDOSIS WITHOUT COMA Qualifiers: Diabetes mellitus type: type 1 Diabetes mellitus complication detail: without coma Qualified Code(s): E10.10 - Type 1 diabetes mellitus with ketoacidosis without coma (2) Asthma Code(s): J45.909 - UNSPECIFIED ASTHMA, UNCOMPLICATED (3) Diabetes Code(s): E11.9 - TYPE 2 DIABETES MELLITUS WITHOUT COMPLICATIONS (4) Diabetic gastropathy Code(s): E11.69 - TYPE 2 DIABETES MELLITUS WITH OTHER SPECIFIED COMPLICATION K31.9 - DISEASE OF STOMACH AND DUODENUM, UNSPECIFIED Assessment/Plan Laboratory Tests 05/01/16 05/01/16 05/01/16 09:42 09:45 09:45 WBC 10.7 H D RBC 5.36 H D Hgb 16.6 H D Hct 51.5 H D MCV 96.1 H MCHC 32.1 RDW 14.7 Plt Count 274 D MPV 10.2 Neutrophils % 76.3 Lymphocytes % 19.9 Monocytes % 3.2 L Eosinophils % 0.4 D Basophils % 0.2 VBG pH POC VBG pCO2 POC VBG pO2 Mixed VBG HCO3 Sodium 134 L Potassium 4.7 D Chloride 101 Carbon Dioxide 10 L D Anion Gap 23 H BUN 16 D Creatinine 0.9 D Creat Clearance w eGFR > 60 POC Glucometer 334.91525 Random Glucose 387 H* D Calcium 9.1 Total Bilirubin 0.6 D AST 51 H D ALT 51 D Alkaline Phosphatase 199 H D Total Protein 8.9 H D Albumin 4.6 D Serum , Qual Urine Color Urine Appearance Urine pH Ur Specific [place] Urine Protein Urine Glucose (UA) Urine Ketones Urine Blood Urine Nitrite Urine Bilirubin Urine Urobilinogen Ur Leukocyte Esterase Urine RBC Urine WBC Ur Epithelial Cells Urine Mucus Acetone, Qual Positive large 3+ H 05/01/16 05/01/16 05/01/16 09:45 10:04 12:07 WBC RBC Hgb Hct MCV MCHC RDW Plt Count MPV Neutrophils % Lymphocytes % Monocytes % Eosinophils % Basophils % VBG pH 7.15 L* D POC VBG pCO2 21.6 L D POC VBG pO2 51.3 H D Mixed VBG HCO3 7.2 L* Sodium Potassium Chloride Carbon Dioxide Anion Gap BUN Creatinine Creat Clearance w eGFR POC Glucometer 140.52898 Random Glucose Calcium Total Bilirubin AST ALT Alkaline Phosphatase Total Protein Albumin Serum , Qual Negative Urine Color Colorless Urine Appearance Clear Urine pH 5.0 Ur Specific [place] 1.027 Urine Protein 1+ H Urine Glucose (UA) 3+ H Urine Ketones 2+ H Urine Blood Negative Urine Nitrite Negative Urine Bilirubin Negative Urine Urobilinogen Negative Ur Leukocyte Esterase Negative Urine RBC <1 Urine WBC <1 Ur Epithelial Cells Rare Urine Mucus Rare Acetone, Qual 05/01/16 05/01/16 05/01/16 13:28 13:40 14:22 WBC RBC Hgb Hct MCV MCHC RDW Plt Count MPV Neutrophils % Lymphocytes % Monocytes % Eosinophils % Basophils % VBG pH POC VBG pCO2 POC VBG pO2 Mixed VBG HCO3 Sodium 143 Potassium 3.7 D Chloride 113 H D Carbon Dioxide 18 L D Anion Gap 12 BUN 13 Creatinine 0.6 D Creat Clearance w eGFR POC Glucometer 68.45359 113.13882 Random Glucose 66 L D Calcium 7.5 L Total Bilirubin AST ALT Alkaline Phosphatase Total Protein Albumin Serum , Qual Urine Color Urine Appearance Urine pH Ur Specific [place] Urine Protein Urine Glucose (UA) Urine Ketones Urine Blood Urine Nitrite Urine Bilirubin Urine Urobilinogen Ur Leukocyte Esterase Urine RBC Urine WBC Ur Epithelial Cells Urine Mucus Acetone, Qual 05/01/16 16:59 WBC RBC Hgb Hct MCV MCHC RDW Plt Count MPV Neutrophils % Lymphocytes % Monocytes % Eosinophils % Basophils % VBG pH POC VBG pCO2 POC VBG pO2 Mixed VBG HCO3 Sodium Potassium Chloride Carbon Dioxide Anion Gap BUN Creatinine Creat Clearance w eGFR POC Glucometer 168.89838 Random Glucose Calcium Total Bilirubin AST ALT Alkaline Phosphatase Total Protein Albumin Serum , Qual Urine Color Urine Appearance Urine pH Ur Specific [place] Urine Protein Urine Glucose (UA) Urine Ketones Urine Blood Urine Nitrite Urine Bilirubin Urine Urobilinogen Ur Leukocyte Esterase Urine RBC Urine WBC Ur Epithelial Cells Urine Mucus Acetone, Qual Active Medications Generic Name Dose Route Start Last Admin Trade Name Freq PRN Reason Stop Dose Admin Heparin Sodium (Porcine) 5,000 unit 05/01/16 22:00 Heparin - SQ TID [facility] Insulin Human Regular 100 100 mls @ 3.51 mls/hr 05/01/16 13:13 05/01/16 15:35 units/ Sodium Chloride IVPB Not Given TITR [facility] Protocol 0.05 UNITS/KG/HR Dextrose/Sodium Chloride 1,000 mls @ 150 mls/hr 05/01/16 13:15 05/01/16 13:00 Dextrose 5%-Normal Saline+20 Meq Kcl - IV 150 mls/hr ASDIR [facility] Administration Pantoprazole Sodium 100 mls @ 200 mls/hr 05/02/16 10:00 Protonix 40mg Ivpb (Pre-Docked) IVPB DAILY [facility] Insulin Aspart 1 vial 05/01/16 16:30 05/01/16 17:41 Novolog Vial Sliding Scale - SQ 2 units ACHS [facility] Administration Protocol Insulin Detemir 30 units 05/01/16 22:00 Levemir Vial SQ HS [facility] Ondansetron HCl 4 mg 05/01/16 14:36 Zofran Injection IVPUSH Q6H PRN NAUSEA AND/OR VOMITING
[2016-05-02] MEDS ORDERED: INSULIN (NOVOLOG) ASPART 100 UNITS/ML 10ML VIAL ONE (21:04)
[2016-05-02] MEDS ORDERED: PT OWN MED DRAWER 7, Y5N ONE (21:04)
[2016-05-02] MEDS: IBUPROFEN 400 MG TABLET (FP) PO PRN (21:12)
[2016-05-02] MEDS ORDERED: INSULIN DETEMIR 100 UNITS/ML MDV SQ SCH (22:00)
[2016-05-03] MEDS: HEPARIN NA (PORCINE) 5,000 UNITS/ML 1ML VIAL SQ SCH ×2 (06:21→13:31)
[2016-05-03] MEDS: INSULIN SLIDING SCALE (NOVOLOG) 1 VIAL SQ SCH ×3 (06:22→17:12)
[2016-05-03] MEDS: INSULIN DETEMIR 100 UNITS/ML MDV SQ SCH ×2 (06:22→17:12)
--- NOTE | 2016-05-03 08:53 | PN ---
Progress Note (short form) - Note Progress Note: Feels good Denies any complaints Eager to go home Vital Signs Period Temp Pulse Resp BP Sys/Jaramillo Pulse Ox Last 24 Hr 97.2 F-98.7 F 61-80 18-18 102-125/60-104 100 PE: AOx3 Neck: Supple, No JVD HEENT: PERRL EOMI Lungs: CTA CVS: S1S2 Abd: Benign EXT: No edema Neuro: No focal deficit CMP Sodium 140 mmol/L (136-145) 05/02/16 05:15 Potassium 3.9 mmol/L (3.5-5.1) 05/02/16 05:15 Chloride 110 mmol/L (98-107) H 05/02/16 05:15 Carbon Dioxide 20 mmol/L (21-32) L 05/02/16 05:15 Anion Gap 10 (8-16) 05/02/16 05:15 BUN 14 mg/dL (7-18) 05/02/16 05:15 Creatinine 0.6 mg/dL (0.55-1.02) 05/02/16 05:15 Creat Clearance w eGFR > 60 (>60) 05/01/16 09:45 POC Glucometer 108 UNITS (()) 05/03/16 05:55 Random Glucose 197 mg/dL (74-106) H D 05/02/16 05:15 Calcium 7.5 mg/dL (8.5-10.1) L 05/02/16 05:15 Total Bilirubin 0.6 mg/dL (0.2-1.0) D 05/01/16 09:45 AST 51 U/L (15-37) H D 05/01/16 09:45 ALT 51 U/L (12-78) D 05/01/16 09:45 Alkaline Phosphatase 199 U/L (45-117) H D 05/01/16 09:45 Total Protein 8.9 g/dl (6.4-8.2) H D 05/01/16 09:45 Albumin 4.6 g/dl (3.4-5.0) D 05/01/16 09:45 Serum , Qual Negative 05/01/16 09:45 Current Medications Generic Name Dose Route Start Last Admin Trade Name Freq PRN Reason Stop Dose Admin Albuterol/Ipratropium 1 amp 05/02/16 13:03 Duoneb - NEB Q6H PRN SHORTNESS OF BREATH Heparin Sodium (Porcine) 5,000 unit 05/02/16 14:00 05/03/16 06:21 Heparin - SQ 5,000 unit TID [facility] Administration Ibuprofen 400 mg 05/02/16 20:46 05/02/16 21:12 Motrin - PO 400 mg Q8H PRN Administration PAIN Insulin Aspart 1 vial 05/03/16 07:00 05/03/16 06:22 Novolog Vial Sliding Scale - SQ Not Given TIDAC [facility] Protocol Insulin Aspart 1 vial 05/02/16 22:00 05/02/16 21:26 Novolog Vial Sliding Scale - SQ 4 units HS [facility] Administration Protocol Insulin Detemir 14 units 05/02/16 16:30 05/03/16 06:22 Levemir Vial SQ 14 units BIDAC [facility] Administration Ondansetron HCl 4 mg 05/02/16 13:03 Zofran Injection IVPUSH Q6H PRN NAUSEA AND/OR VOMITING Pantoprazole Sodium 40 mg 05/03/16 10:00 Protonix - PO DAILY [facility] AP: DM S/P DKA Levemir 14 BID NOvolog SS coverage Labs pending If Labs ok, may be discharged home on current Insulin regimen. Pt has all the Insulins and necessary supplies at home. F/U in office next Sunday with BGM record. To call [phone] for appt. Problem List - Problems (1) DKA (diabetic ketoacidoses) Code(s): E13.10 - OTH DIABETES MELLITUS WITH KETOACIDOSIS WITHOUT COMA Qualifiers: Diabetes mellitus type: type 1 Diabetes mellitus complication detail: without coma Qualified Code(s): E10.10 - Type 1 diabetes mellitus with ketoacidosis without coma (2) Diabetes Code(s): E11.9 - TYPE 2 DIABETES MELLITUS WITHOUT COMPLICATIONS
[2016-05-03 08:54] LABS: ALBUMIN 2.7 g/dl (3.4-5.0); ANION GAP 10 (8-16); CALCIUM 7.9 mg/dL (8.5-10.1); CO2 24 mmol/L (21-32); GLUCOSE,RANDOM 157 mg/dL (74-106); MAGNESIUM 1.8 mg/dL (1.8-2.4); SGOT/AST 23 U/L (15-37)
[2016-05-03 08:56] LABS: ALK PHOS 93 U/L (45-117); BILIRUBIN,TOTAL 0.3 mg/dL (0.2-1.0); CREATININE 0.4 mg/dL (0.55-1.02); SGPT/ALT 29 U/L (12-78); TOT PROT 5.2 g/dl (6.4-8.2)
[2016-05-03] MEDS ORDERED: PANTOPRAZOLE 40 MG TABLET (FP) PO SCH (10:00)
[2016-05-03] MEDS: IBUPROFEN 400 MG TABLET (FP) PO PRN (10:28)
[2016-05-03 13:31] VITALS: BP 116/81; PULSE 81
[2016-05-03 13:43] VITALS: TEMP 98.4
--- NOTE | 2016-05-03 15:21 | DS ---
Physical Examination Vital Signs: Vital Signs Temperature 98.4 F 05/03/16 13:43 Pulse Rate 81 05/03/16 13:30 Respiratory Rate 18 05/03/16 13:30 Blood Pressure 116/81 05/03/16 13:30 O2 Sat by Pulse Oximetry (%) 100 05/02/16 21:00 Constitutional: Yes: No Distress Neck: Yes: Supple Cardiovascular: Yes: Regular Rate and Rhythm Respiratory: Yes: CTA Bilaterally Gastrointestinal: Yes: Normal Bowel Sounds Extremities: Yes: WNL Neurological: Yes: Alert, Oriented Labs: CBC, BMP 05/02/16 05:15 05/03/16 07:40 Discharge Summary Reason For Visit: DKA Current Active Problems DKA (diabetic ketoacidoses) (Acute) Diabetic gastropathy (Acute) - Instructions Referrals: STAFF,NOT ON [Primary Care Provider] - - Home Medications Comprehensive Discharge Medication List: Ambulatory Orders Insulin (Levemir) [Levemir Flexpen -] 30 units SQ DAILY 09/13/14 Insulin Sliding Scale [Novolog Vial Sliding Scale -] 1 vial SQ TIDAC #7 units Insulin (Levemir) [Levemir Vial] 14 units SQ BIDAC #0 ml 05/03/16 dc home pt will see me in office
== END 2016-05-03 18:15 | disposition home or self-care (01) | DRG 420 ==
LOC: JER 09:04 → JERBED 11:16 → JICU 12:00 → J5S 05-02 20:17
PROVIDERS: ADMIT Internal Medicine; ATTEND Internal Medicine
DX: E10.10 Type 1 diabetes mellitus with ketoacidosis without coma (principal); E10.43 Type 1 diabetes mellitus with diabetic autonomic (poly)neuropathy; K31.84 Gastroparesis; Z72.0 Tobacco use; Z79.4 Long term (current) use of insulin; J45.909 Unspecified asthma, uncomplicated; K31.9 Disease of stomach and duodenum, unspecified
CPT/HCPCS: 36415; 71010-TC; 80048; 80053; 81003; 81015; 82009; 82803; 83735; 84100; 84703; 85025; 93005; 93010; 99285-25; G0008; J1644; Q2037

== ENCOUNTER 2016-06-02 22:41 | Emergency (ER) | payer OTHER ==
[2016-06-02 23:16] VITALS: BP 126/83; PULSE 99; TEMP 98.4; BMI 29.5
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
== END 2016-06-03 00:35 | disposition home or self-care (01) ==
LOC: JER 22:41
DX: S80.02XA Contusion of left knee, initial encounter (principal); W18.39XA Other fall on same level, initial encounter; Y93.89 Activity, other specified; Y92.9 Unspecified place or not applicable; E10.8 Type 1 diabetes mellitus with unspecified complications; Z79.4 Long term (current) use of insulin
CPT/HCPCS: 73560-TC-LT; 99283-25

== ENCOUNTER 2016-09-19 09:12 | Inpatient (IN) | payer OTHER ==
[2016-09-19 09:17] VITALS: BMI 28.3
--- NOTE | 2016-09-19 09:30 | PDOC ---
Attending Attestation - Resident Resident Name: [email or web address] - ED Attending Attestation I have performed the following: I have examined & evaluated the patient, The case was reviewed & discussed with the resident, I agree w/resident's findings & plan, Exceptions are as noted - HPI HPI: 09/20/16 09:26 This is a 31 yo F h/o Insulin Dependent DM h/o CP, SOB, lower extremity edema. Pt has not been getting out of bed because of depression about a personal issue Chest pain started today and began as sharp and nonradiating, then transitioned to a dull/pressure-like pain. She also states that she feels very dry. Not eating or taking her Insulin x 2 weeks - Physicial Exam PE: 09/20/16 09:35 On exam: RRR Lungs clear No abd tenderness Lower extremity edema Pt tearful - Medical Decision Making 09/20/16 09:37 Pt in DKA NS boluses give Insulin given Potassium repleated Admit to Hospitalist service While (+) gap, will admit to ICU Discharge Disposition - Diagnosis DKA (diabetic ketoacidoses) Qualifiers: Diabetes mellitus type: other specified (including VERONICA) Diabetes mellitus complication detail: without coma Qualified Code(s): E13.10 - Other specified diabetes mellitus with ketoacidosis without coma - Discharge Dispostion Condition at time of disposition: Stable Last Admission D/C Date: 05/03/16 Heart Score/ECG Review #1 ECG reviewed & interpreted by me at: 10:12 09/19/16 10:12 Twelve-lead EKG was performed and reviewed by me. There is normal sinus rhythm with a tachycardiac rate of 116 bpm. The axis is normal. The intervals are normal. There are no ST or T wave abnormalities. Critical Care Total Critical Care Time (in minutes): 35 Critical Care Statement: The care of this patient involved high complexity decision making to prevent further life threatening deterioration of the patient 's condition and/or to evaluate & treat vital organ system(s) failure or risk of failure.
[2016-09-19] MEDS ORDERED: SODIUM CHLORIDE 0.9% 1000 ML INFUS.BAG IV ONE ×2 (09:38→13:14)
[2016-09-19 10:14] LABS: BASOPHIL 0.5 % (0-2.0); EOSINOPHIL 0.5 % (0-4.5); MCH 30.6 pg (25.7-33.7); MCHC 31.5 g/dl (32.0-36.0); MEAN CELL VOLUME 97.1 fl (80-96); MEAN PLT VOLUME 10.2 fl (7.5-11.1); NEUTROPHILS 72.5 % (42.8-82.8); PLATELET COUNT 206 K/MM3 (134-434); RDW 14.6 % (11.6-15.6); WHITE BLOOD COUNT 8.5 K/mm3 (4.0-10.0)
[2016-09-19 10:32] LABS: ALBUMIN 4.3 g/dl (3.4-5.0); ANION GAP 28 (8-16); BILIRUBIN,TOTAL 0.6 mg/dL (0.2-1.0); CALCIUM 8.4 mg/dL (8.5-10.1); CO2 6 mmol/L (21-32); CREATININE 0.9 mg/dL (0.55-1.02); SGOT/AST 44 U/L (15-37); SGPT/ALT 83 U/L (12-78); TOT PROT 7.8 g/dl (6.4-8.2)
[2016-09-19 10:33] LABS: ALK PHOS 177 U/L (45-117)
[2016-09-19 10:34] LABS: CPK 122 IU/L (26-192); TROPONIN I < 0.02 ng/ml (0.00-0.05)
[2016-09-19 10:35] LABS: URINE APPEARANCE CLEAR; URINE BILIRUBIN NEGATIVE (NEGATIVE); URINE BLOOD 1+ (NEGATIVE); URINE COLOR STRAW; URINE GLUCOSE (UA) 3+ (NEGATIVE); URINE KETONE 2+ (NEGATIVE); URINE LEUK ESTERASE NEGATIVE (NEGATIVE); URINE NITRITE NEGATIVE (NEGATIVE); URINE UROBILINOGEN NEGATIVE mg/dL (0.2-1.0)
[2016-09-19 10:35] LABS: GLUCOSE,RANDOM 445 mg/dL (74-106)
--- NOTE | 2016-09-19 10:38 | PDOC ---
History of Present Illness - General Chief Complaint: Blood Sugar Problem Stated Complaint: BLOOD SUGAR PROBLEM Time Seen by Provider: 09/19/16 09:24 History Source: Patient Exam Limitations: No Limitations - History of Present Illness Initial Comments: 09/19/16 10:20 The patient is a 31F with a PMH of T1DM and depression who presents to the ED with CP and SOB. The patient states that she has had leg swelling and SOB x 2 weeks after she has been bedbound due to depression after finding out her boyfriend cheated on her. She states that her CP started today and began as sharp and nonradiating, then transitioned to a dull/pressure-like pain. She also states that she feels very dry. Patient has not been eating or taking her DM or depression medication for 2 weeks now. The patient has been bed bound x 2 weeks d/t depression. All: none BG: read as high at bedside; 445 per lab Past History - Past Medical History Allergies/Adverse Reactions: Allergies Allergy/AdvReac Type Severity Reaction Status Date / Time No Known Allergies Allergy Verified 09/19/16 09:14 Home Medications: Ambulatory Orders Insulin (Levemir) [Levemir Flexpen -] 15 units SQ BID 09/13/14 Insulin Sliding Scale [Novolog Vial Sliding Scale -] 0 units SQ TIDAC PRN Anemia: No Asthma: Yes (stable) Cancer: No Cardiac Disorders: No CVA: No COPD: No CHF: No Dementia: No Diabetes: Yes (TYPE 1) GI Disorders: No Disorders: No HTN: No Hypercholesterolemia: No Liver Disease: No Suicide Attempt (Hx): No Seizures: No Thyroid Disease: No - Surgical History Abdominal Surgery: No Appendectomy: No Cardiac Surgery: No Cholecystectomy: No Gastric Stapling: No GI Surgery: No Lung Surgery: No Neurologic Surgery: No Orthopedic Surgery: No - Reproductive History (#): 11 Para: 4 Therapeutic (s) & number: Yes (4) Spontaneous : 2 - Immunization History Td Vaccination: Yes Immunization Up to Date: Yes - Psycho/Social/Smoking Cessation Hx Anxiety: No Suicidal Ideation: No Smoking Status: No Smoking History: Former smoker Years of Tobacco Use: 4 Have you smoked in the past 12 months: Yes Number of Cigarettes Smoked Daily: 1 Cigars Per Day: 0 Information on smoking cessation initiated: No 'Breaking Loose' booklet given: 04/14/13 Hx Alcohol Use: No Drug/Substance Use Hx: No Substance Use Type: None Review of Systems - Review of Systems Able to Perform ROS?: Yes Is the patient limited Lao proficient: No Constitutional: Yes: Fever, Loss of Appetite. No: Chills, Diaphoresis HEENTM: Yes: Blurred Vision, Recent change in vision, Double Vision Respiratory: Yes: Shortness of Breath. No: Cough, Wheezing, Hemoptysis Cardiac (ROS): Yes: Chest Pain, Lightheadedness, Palpitations ABD/GI: Yes: Constipated (x 3 days), Nausea, Poor Appetite, Poor Fluid Intake. No: Blood Streaked Bowels, Diarrhea, Vomiting, Abdominal cramping : Yes: Frequency. No: Burning, Dysuria, Discharge, Hematuria, Pain Neurological: Yes: Headache, Unsteady Gait. No: Numbness, Seizure, Tingling, Tremors, Weakness Psychiatric: Yes: Anxiety, Depression, Frequent Crying, Stressors, Sleep Pattern Change, Emotional Problems, Mood Swings, Change in Appetite Endocrine: Yes: Increased Thirst, Increased Urine Hematologic/Lymphatic: No: Symptoms Reported, See HPI, Anemia, Blood Clots, Easy Bleeding, Easy Bruising, Bleeding Diathesis, Lymph Node Abnormalities, Swollen Glands, Other *Physical Exam - Vital Signs Last Vital Signs Temp Pulse Resp BP Pulse Ox 98.3 F 116 H 20 134/75 98 09/19/16 09:14 09/19/16 10:08 09/19/16 10:08 09/19/16 10:08 09/19/16 10:08 - Physical Exam General Appearance: Yes: Nourished, Appropriately Dressed, Mild Distress HEENT: positive: Normal Voice, Hearing Grossly Normal. negative: Pale Conjunctivae, Scleral Icterus (R), Scleral Icterus (L) Respiratory/Chest: positive: Lungs Clear, Rapid RR, Wheezing (mild expiratory). negative: Chest Tender, Decreased Breath Sounds, Crackles, Rales, Rhonchi, Stridor, Dullness Cardiovascular: positive: Regular Rhythm, S1, S2, Tachycardia. negative: Diastolic Murmur, Systolic Murmur, Irregular Gastrointestinal/Abdominal: positive: Tender (midepigastric and RUQ), Flat, Soft. negative: Increased Bowel Sounds, Distended, Guarding, Rebound, Mass Musculoskeletal: negative: CVA Tenderness, CVA Tenderness (R), CVA Tenderness (L ) Extremity: positive: Pedal Edema (nonpitting, worse on L), Calf Tenderness (L side), Other (+ Kameron's sign) Integumentary: positive: Dry, Warm, Swelling (b/l). negative: Jaundice, Clammy , Diaphoresis Neurologic: negative: Normal Mood/Affect Heart Score/ECG Review - ECG Impressions Normal ECG: Yes Tachycardia: Sinus ED Treatment Course - LABORATORY CBC & Chemistry Diagram: 09/20/16 06:10 09/19/16 21:00 - Medications Given in the ED: ED Medications Discontinued Medications Generic Name Dose Route Start Last Admin Trade Name Freq PRN Reason Stop Dose Admin Sodium Chloride 1,000 ml 09/19/16 09:38 09/19/16 10:00 Normal Saline - IV 09/19/16 09:39 1,000 ml ONCE ONE Administration Medical Decision Making - Medical Decision Making 09/19/16 10:44 The patient is a 31F with a PMH of DM and depression who presents with CP and SOB. The CP is acute and the SOB has been worsening over 2 weeks. I have ordered labs to r/o DKA and DVT/PE. Will reassess the patient when labs return. 09/19/16 11:15 Patient has an AG of 29. Acetones + in serum. Will continue fluids, replenish K , and start insulin. 09/19/16 11:52 Hospitalist has been paged. Dr. Jacobo has accepted ICU admission for consult. 09/19/16 12:49 Repeat BG is 138. She is no longer on any drips. Hospitalist accepted admission to ICU. *DC/Admit/Observation/Transfer Diagnosis at time of Disposition: DKA (diabetic ketoacidoses) Qualifiers: Diabetes mellitus type: other specified (including VERONICA) Diabetes mellitus complication detail: without coma Qualified Code(s): E13.10 - Other specified diabetes mellitus with ketoacidosis without coma - Discharge Dispostion Condition at time of disposition: Stable Admit: Yes - Attestations Physician Attestion: 09/20/16 14:08 I, Dr. Venu Magdaleno, attest that this document has been prepared under my direction and personally reviewed by me in its entirety. I further attest, that it accurately reflects all work, treatment, procedures and medical decision -making performed by me.
[2016-09-19 10:40] LABS: URINE MARIJUANA THC NEGATIVE ng/ml (CUTOFF=50)
[2016-09-19 10:58] LABS: URINE PROTEIN 1+ (NEGATIVE)
[2016-09-19 11:03] LABS: ACETONE SERUM POSITIVE LARGE 3+ (NEGATIVE)
[2016-09-19] MEDS ORDERED: SODIUM CHLORIDE 1,000 ML IV STA ×2 (11:03→11:10)
[2016-09-19] MEDS ORDERED: INSULIN REGULAR HUMAN 100 UNITS/ML *VIAL IVPUSH ONE (11:03)
--- NOTE | 2016-09-19 11:07 | EKG ---
Test Reason : Blood Pressure : / mmHG Vent. Rate : 116 BPM Atrial Rate : 116 BPM P-R Int : 158 ms QRS Dur : 090 ms QT Int : 334 ms P-R-T Axes : 059 076 035 degrees QTc Int : 464 ms SINUS TACHYCARDIA NONDIAGNOSTIC q WAVES I II III aVF. NON WHEN COMPARED WITH ECG OF 01-MAY-2016 09:51, NO SIGNIFICANT CHANGE WAS FOUND CLINICAL CORRELATION IS RECOMMENDED Confirmed by ARGELIA MCMULLEN MD ([id number]) on 09/19/2016 11:07:31 AM Referred By: Confirmed By:ARGELIA MCMULLEN MD
[2016-09-19] MEDS ORDERED: POTASSIUM CHLORIDE TABS 20 MEQ TABLET.ER (FP) PO ONE (11:11)
[2016-09-19] MEDS ORDERED: SODIUM CHLORIDE 0.9%/KCL 1,000 ML IV SCH (11:15)
[2016-09-19 11:18] LABS: URINE BACTERIA MODERATE /hpf (NONE SEEN); URINE MUCUS RARE; URINE WBC <1 /hpf (3-5)
[2016-09-19] MEDS ORDERED: ONDANSETRON 4 MG/2 ML VIAL IVPUSH ONE (11:27)
[2016-09-19] MEDS ORDERED: POTASSIUM CHLORIDE TABS 10 MEQ TABLET.ER (FP) ONE (11:29)
[2016-09-19] MEDS ORDERED: ONDANSETRON 4 MG/2 ML VIAL ONE (11:29)
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
--- NOTE | 2016-09-19 13:00 | HP ---
CHIEF COMPLAINT: Chest Pain and Shortness of breath PCP: Dr. Urena at [facility] HISTORY OF PRESENT ILLNESS: 31 year old F with pmh of T1DM, asthma, and depression presented with shortness of breath and chest pain. Patient states she woke up this morning with substernal, nonradiating, 9/10, pressure like and pleuritic chest pain and shortness of breath. Patient felt like she couldn't catch her breath, which brought her in to the ED. Patient has been depressed and bedbound over the last 2 weeks due to her boyfriend cheating on her with her best friend. Patient admits to noncompliance with her novolog. She also states she has been having bilateral leg swelling over the last 3 days, which resolved this morning. ER course was notable for: (1)CBC, BMP- Glucose of 445, AG 28, elevated ast, alt, alk phos, 3+ acetone, (2)UA- 2+ ketones, 3+ glucose (3)EKG--unchanged from april Recent Travel: Denies PAST MEDICAL HISTORY: T1DM, Asthma, and depression PAST SURGICAL HISTORY: left finger surgery Social History: Smoking: +marijuana Alcohol: Denies Drugs: Denies Family History: HTN- brother Allergies No Known Allergies Allergy (Verified 09/19/16 09:14) HOME MEDICATIONS: Home Medications Medication Instructions Recorded Insulin (Levemir) [Levemir Flexpen 15 units SQ BID 09/13/14 -] Insulin Sliding Scale [Novolog 0 units SQ TIDAC PRN 09/19/16 Vial Sliding Scale -] REVIEW OF SYSTEMS CONSTITUTIONAL: Absent: fever, chills, diaphoresis, generalized weakness, malaise, loss of appetite, weight change (weight loss) HEENT: Absent: rhinorrhea, nasal congestion, throat pain, throat swelling, difficulty swallowing, mouth swelling, ear pain, eye pain, visual changes CARDIOVASCULAR: Absent: chest pain, syncope, palpitations, irregular heart rate, lightheadedness , peripheral edema RESPIRATORY: Absent: cough, shortness of breath, dyspnea with exertion, orthopnea, wheezing, stridor, hemoptysis GASTROINTESTINAL: Absent: abdominal pain (RUQ), abdominal distension, nausea, vomiting, diarrhea, constipation, melena, hematochezia GENITOURINARY: Absent: dysuria, frequency, urgency, hesitancy, hematuria, flank pain, genital pain MUSCULOSKELETAL: Absent: myalgia, arthralgia, joint swelling, back pain, neck pain SKIN: Absent: rash, itching, pallor HEMATOLOGIC/IMMUNOLOGIC: Absent: easy bleeding, easy bruising, lymphadenopathy, frequent infections ENDOCRINE: Absent: unexplained weight gain, unexplained weight loss, heat intolerance, cold intolerance NEUROLOGIC: Absent: headache, focal weakness or paresthesias, dizziness, unsteady gait, seizure, mental status changes, bladder or bowel incontinence PSYCHIATRIC: Absent: anxiety, depression, suicidal or homicidal ideation, hallucinations. PHYSICAL EXAMINATION Vital Signs - 24 hr 09/19/16 09/19/16 09/19/16 09:14 10:08 11:31 Temperature 98.3 F Pulse Rate 131 H Pulse Rate [ 116 H 98 H Apical] Respiratory 24 20 18 Rate Blood Pressure 133/75 Blood Pressure 134/75 107/72 [Right Arm] O2 Sat by Pulse 100 98 98 Oximetry (%) GENERAL: Awake, alert, and fully oriented, in no acute distress. HEAD: Normal with no signs of trauma. EYES: Pupils equal, round and reactive to light, extraocular movements intact, sclera anicteric, conjunctiva clear. No lid lag. EARS, NOSE, THROAT: Ears normal, nares patent, oropharynx clear without exudates. Dry Mucous Membranes NECK: Normal range of motion, supple without lymphadenopathy, JVD, or masses. LUNGS: Breath sounds equal, + mild expiratory wheeze in LL base, and no crackles. No accessory muscle use. HEART: Regular rate and rhythm, normal S1 and S2 without murmur, rub or gallop. ABDOMEN: Soft, TTP of RUQ, not distended, normoactive bowel sounds, no guarding , no rebound, no masses. No hepatomegaly or splenomegaly. MUSCULOSKELETAL: Normal range of motion at all joints. No bony deformities or tenderness. No CVA tenderness. UPPER EXTREMITIES: 2+ pulses, warm, well-perfused. No cyanosis. No clubbing. No peripheral edema. LOWER EXTREMITIES: 2+ pulses, warm, well-perfused. Left calf tenderness. No peripheral edema. NEUROLOGICAL: Cranial nerves II-XII intact. Normal speech. Normal gait. 4/5 STRENGTH IN LUE AND LLE, 5/5 strength in RUE and RLE, sensation intact bilaterally PSYCHIATRIC: Cooperative. Good eye contact. Depressed mood and affect, crying SKIN: Warm, dry, normal turgor, no rashes or lesions noted, normal capillary refill. Laboratory Results - last 24 hr 09/19/16 09/19/16 09/19/16 09:36 09:41 09:50 WBC 8.5 D RBC 5.01 D Hgb 15.3 D Hct 48.6 H D MCV 97.1 H MCH 30.6 MCHC 31.5 L RDW 14.6 Plt Count 206 D MPV 10.2 Neutrophils % 72.5 D Lymphocytes % 22.0 D Monocytes % 4.5 Eosinophils % 0.5 Basophils % 0.5 D-Dimer Sodium Potassium Chloride Carbon Dioxide Anion Gap BUN Creatinine Creat Clearance w eGFR POC Glucometer > 400 Random Glucose Calcium Total Bilirubin AST ALT Alkaline Phosphatase Creatine Kinase Troponin I Total Protein Albumin Serum , Qual Urine Color Urine Appearance Urine pH Urine Protein Urine Glucose (UA) Urine Ketones Urine Blood Urine Nitrite Urine Bilirubin Urine Urobilinogen Ur Leukocyte Esterase Urine RBC Urine WBC Ur Epithelial Cells Urine Bacteria Urine Mucus Opiates Screen Negative Methadone Screen Negative Barbiturate Screen Negative Phencyclidine Screen Negative Ur Amphetamines Screen Negative MDMA (Ecstasy) Screen Negative Benzodiazepines Screen Negative Cocaine Screen Negative U Marijuana (THC) Screen Negative Acetone, Qual 09/19/16 09/19/16 09/19/16 09:50 09:50 09:53 WBC RBC Hgb Hct MCV MCH MCHC RDW Plt Count MPV Neutrophils % Lymphocytes % Monocytes % Eosinophils % Basophils % D-Dimer Sodium 135 L Potassium 3.9 Chloride 101 Carbon Dioxide 6 L D Anion Gap 28 H BUN 14 Creatinine 0.9 D Creat Clearance w eGFR > 60 POC Glucometer Random Glucose 445 H* D Calcium 8.4 L Total Bilirubin 0.6 D AST 44 H D ALT 83 H D Alkaline Phosphatase 177 H D Creatine Kinase 122 Troponin I < 0.02 Total Protein 7.8 D Albumin 4.3 D Serum , Qual Negative Urine Color Straw Urine Appearance Clear Urine pH 5.0 Urine Protein 1+ H Urine Glucose (UA) 3+ H Urine Ketones 2+ H Urine Blood 1+ H Urine Nitrite Negative Urine Bilirubin Negative Urine Urobilinogen Negative Ur Leukocyte Esterase Negative Urine RBC None Urine WBC <1 Ur Epithelial Cells Rare Urine Bacteria Moderate Urine Mucus Rare Opiates Screen Methadone Screen Barbiturate Screen Phencyclidine Screen Ur Amphetamines Screen MDMA (Ecstasy) Screen Benzodiazepines Screen Cocaine Screen U Marijuana (THC) Screen Acetone, Qual Positive large 3+ H 09/19/16 09:54 WBC RBC Hgb Hct MCV MCH MCHC RDW Plt Count MPV Neutrophils % Lymphocytes % Monocytes % Eosinophils % Basophils % D-Dimer < 200 Sodium Potassium Chloride Carbon Dioxide Anion Gap BUN Creatinine Creat Clearance w eGFR POC Glucometer Random Glucose Calcium Total Bilirubin AST ALT Alkaline Phosphatase Creatine Kinase Troponin I Total Protein Albumin Serum , Qual Urine Color Urine Appearance Urine pH Urine Protein Urine Glucose (UA) Urine Ketones Urine Blood Urine Nitrite Urine Bilirubin Urine Urobilinogen Ur Leukocyte Esterase Urine RBC Urine WBC Ur Epithelial Cells Urine Bacteria Urine Mucus Opiates Screen Methadone Screen Barbiturate Screen Phencyclidine Screen Ur Amphetamines Screen MDMA (Ecstasy) Screen Benzodiazepines Screen Cocaine Screen U Marijuana (THC) Screen Acetone, Qual ASSESSMENT/PLAN: 31 year old F with pmh of T1DM, asthma, and depression presented with chest pain and shortness of breath admitted for DKA 2/2 to noncompliance #DKA 2/2 to noncompliance -Glucose 445, AG-28 -Repeat: glucose-147, AG-16 -IVF D5 1/2 NS + 40 meq of KCL @ 150 cc/hr -BGM Q3H -ISS Q3H -HBa1c in the AM -BMP q4hr -Fingersticks q1H -CXR pending -ABG pending -Endocrine consulted, Dr. Reid #Transaminitis, DDx: HOLLAND vs Cholelithiasis -Abdominal U/s pending -repeat labs in the AM #LLE calf tenderness -Bedbound for 2 weeks -Patient reports swelling -Will obtain lower extremity doppler #LUE/LLE weakness w/ unsteady gait -CT head ordered -neurology consulted, Dr. Joseph #FEN/GI: -IVF D5 1/2 NS + 40 meq of KCL @ 150 cc/hr -lytes wnl -diabetic/low Na diet #ppx: dvt- lovenox 40 mg daily gi- not indicated Visit type - Emergency Visit Emergency Visit: Yes ED Registration Date: 09/19/16 Care time: The patient presented to the Emergency Department on the above date and was hospitalized for further evaluation of their emergent condition. - New Patient This patient is new to me today: Yes Date on this admission: 09/19/16 - Critical Care Critical Care patient: No
[2016-09-19] MEDS ORDERED: INSULIN REGULAR 100 UNITS in SODIUM CHLORIDE 99 ML IVPB SCH (13:15)
[2016-09-19] MEDS ORDERED: SODIUM CHLORIDE 0.9% 1000 ML INFUS.BAG IV SCH (13:16)
--- NOTE | 2016-09-19 13:16 | PN ---
Teaching Attending Note Name of Resident: Marshal Larios ATTENDING PHYSICIAN STATEMENT I saw and evaluated the patient. I reviewed the resident's note and discussed the case with the resident. I agree with the resident's findings and plan as documented. SUBJECTIVE: Patient states that she was taking her meds on and off, whenever she felt like it would take it. OBJECTIVE: Vital Signs Temperature 98.3 F 09/19/16 09:14 Pulse Rate 98 H 09/19/16 11:31 Respiratory Rate 18 09/19/16 11:31 Blood Pressure 107/72 09/19/16 11:31 O2 Sat by Pulse Oximetry (%) 98 09/19/16 11:31 CBCD WBC 8.5 K/mm3 (4.0-10.0) D 09/19/16 09:50 RBC 5.01 M/mm3 (3.60-5.2) D 09/19/16 09:50 Hgb 15.3 GM/dL (10.7-15.3) D 09/19/16 09:50 Hct 48.6 % (32.4-45.2) H D 09/19/16 09:50 MCV 97.1 fl (80-96) H 09/19/16 09:50 MCHC 31.5 g/dl (32.0-36.0) L 09/19/16 09:50 RDW 14.6 % (11.6-15.6) 09/19/16 09:50 Plt Count 206 K/MM3 (134-434) D 09/19/16 09:50 MPV 10.2 fl (7.5-11.1) 09/19/16 09:50 CMP Sodium 135 mmol/L (136-145) L 09/19/16 09:53 Potassium 3.9 mmol/L (3.5-5.1) 09/19/16 09:53 Chloride 101 mmol/L (98-107) 09/19/16 09:53 Carbon Dioxide 6 mmol/L (21-32) L D 09/19/16 09:53 Anion Gap 28 (8-16) H 09/19/16 09:53 BUN 14 mg/dL (7-18) 09/19/16 09:53 Creatinine 0.9 mg/dL (0.55-1.02) D 09/19/16 09:53 Creat Clearance w eGFR > 60 (>60) 09/19/16 09:53 Random Glucose 445 mg/dL (74-106) H* D 09/19/16 09:53 Calcium 8.4 mg/dL (8.5-10.1) L 09/19/16 09:53 Total Bilirubin 0.6 mg/dL (0.2-1.0) D 09/19/16 09:53 AST 44 U/L (15-37) H D 09/19/16 09:53 ALT 83 U/L (12-78) H D 09/19/16 09:53 Alkaline Phosphatase 177 U/L (45-117) H D 09/19/16 09:53 Total Protein 7.8 g/dl (6.4-8.2) D 09/19/16 09:53 Albumin 4.3 g/dl (3.4-5.0) D 09/19/16 09:53 CARDIAC ENZYMES Creatine Kinase 122 IU/L (26-192) 09/19/16 09:50 Troponin I < 0.02 ng/ml (0.00-0.05) 09/19/16 09:50 Current Medications Generic Name Dose Route Start Last Admin Trade Name Freq PRN Reason Stop Dose Admin Chlorhexidine Gluconate 1 applic 09/19/16 22:00 Hibiclens For Decolonization - TP HS [facility] Insulin Human Regular 100 100 mls @ 7.25 mls/hr 09/19/16 13:15 units/ Sodium Chloride IVPB TITR [facility] Protocol 0.1 UNITS/KG/HR Mupirocin 1 applic 09/19/16 22:00 Bactroban Ointment (For Decolonization) - NS 09/24/16 21:59 BID [facility] Home Medications Medication Instructions Recorded Insulin (Levemir) [Levemir Flexpen 15 units SQ BID 09/13/14 -] Insulin Sliding Scale [Novolog 0 units SQ TIDAC PRN 09/19/16 Vial Sliding Scale -] ASSESSMENT AND PLAN: 31 yr old woman with t1dm, depression admitted for DKA secondary to medication noncompliance. # Acute DKA - gap closed post IVF, On IVF d5 1/2ns with 40kcl 1 bag, then continous NS IVF @ 150cc/hr , bgm q3h with sliding scale w coverage - diabetic low sodium diet , Mg and phos in am, HBa1c pending , endocrinology Gale Townsend #left lower left calf tenderness,r/o DVT , duplex ordered , d-dimer neg. #left sided weakness - unclear etiology, r/o CVA , or cranial pathology; will get head CT w.o contrast to r/o bleed, Further w/u per neuro; neurology consult #Acute transaminitis with RUQ pain, repeat lft's in the am, abdominal ultrasound ordered to r/o cholelithiasis/HOLLAND #depression on and off, will get psych to see her as well. #DVT lovenox sq
[2016-09-19 13:19] LABS: ANION GAP 16 (8-16); CALCIUM 7.4 mg/dL (8.5-10.1); CO2 12 mmol/L (21-32); CREATININE 0.8 mg/dL (0.55-1.02); GLUCOSE,RANDOM 147 mg/dL (74-106)
[2016-09-19] MEDS ORDERED: D5-1/2NS+40 MEQ KCL - 1,000 ML IV SCH ×2 (13:30)
[2016-09-19] MEDS ORDERED: INSULIN SLIDING SCALE (NOVOLOG) 1 VIAL SQ SCH (15:00)
[2016-09-19 17:10] LABS: ARTERIAL BLD GAS O2 SATURATION 98.1 % (90-98.9); ARTERIAL BLOOD GAS BASE EXCESS -8.7 meq/l (-2-2); ARTERIAL BLOOD GAS HCO3 15.5 meq/L (22-26); ARTERIAL BLOOD GAS PO2 96.5 mmHg (80-100); ARTERIAL BLOOD GAS pH 7.34 (7.35-7.45)
[2016-09-19 17:12] LABS: ALLENS TEST POSITIVE; ART PUNCT SITE RIGHT RADIAL; PT. ON O2? NO
[2016-09-19 17:13] LABS: TYPE OF O2 ROOM AIR
[2016-09-19] MEDS ORDERED: ENOXAPARIN NA (PORCINE) 40 MG/0.4 ML DISP.SYRIN SQ ONE (18:34)
[2016-09-19] MEDS: ENOXAPARIN NA (PORCINE) 40 MG/0.4 ML DISP.SYRIN SQ SCH (18:38)
--- NOTE | 2016-09-19 18:42 | CONSULT ---
Consult Consult Specialty:: Endocrinology Referred by:: Dr Decker Reason for Consultation:: DKA - History of Present Illness Chief Complaint: Nausea History of Present Illness: This patient is a 31F with a PMH of DM diagnosed with DM in 2012 and DKA in 2015 and depression who presents to the ED with c/o Nausea, chest pain. The patient states that she has had leg swelling and SOB x 2 weeks after she has been bedbound due to depression after finding out her boyfriend cheated on her. Patient has not been eating or taking her DM or depression medication regularly for 2 weeks now. pt says she has been taking Levemir internittently but not he Novolog. Denies any polyuria, polydipsia. No visual symptoms. Pt found to be hyperglycemic and acidotic and treated with IV hydration and IV Insulin with normalization of Anion gap, but the CO2 remains 12 in the last SMA whereas the PH is 7.34. pt currently on D51/2NS with KCL at 150ml/hr. - History Source History Provided By: Patient, Medical Record - Past Medical History Pulmonary: Yes: Asthma ...LMP: 04/20/12 Endocrine: Yes: Diabetes Mellitus - Alcohol/Substance Use Hx Alcohol Use: No - Smoking History Smoking history: Former smoker Have you smoked in the past 12 months: Yes Aproximately how many cigarettes per day: 1 Home Medications - Allergies Allergies/Adverse Reactions: Allergies Allergy/AdvReac Type Severity Reaction Status Date / Time No Known Allergies Allergy Verified 09/19/16 09:14 - Home Medications Home Medications: Ambulatory Orders Insulin (Levemir) [Levemir Flexpen -] 15 units SQ BID 09/13/14 Insulin Sliding Scale [Novolog Vial Sliding Scale -] 0 units SQ TIDAC PRN Family Disease History - Family Disease History Family Disease History: Diabetes: Father Review of Systems - Review of Systems Constitutional: reports: Weakness Eyes: reports: No Symptoms HENT: reports: No Symptoms Neck: reports: No Symptoms Cardiovascular: reports: No Symptoms Respiratory: reports: No Symptoms Gastrointestinal: reports: No Symptoms Genitourinary: reports: No Symptoms Musculoskeletal: reports: No Symptoms Integumentary: reports: No Symptoms Neurological: reports: No Symptoms Endocrine: reports: No Symptoms Physical Exam Vital Signs: Vital Signs Temperature 98.1 F 09/19/16 14:30 Pulse Rate 82 09/19/16 16:58 Respiratory Rate 18 09/19/16 16:58 Blood Pressure 102/58 09/19/16 16:58 O2 Sat by Pulse Oximetry (%) 98 09/19/16 16:58 Constitutional: Yes: Anxious Eyes: Yes: Conjunctiva Clear, EOM Intact HENT: Yes: Atraumatic, Normocephalic Neck: Yes: Supple, Trachea Midline Cardiovascular: Yes: Regular Rate and Rhythm Respiratory: Yes: Regular, CTA Bilaterally Gastrointestinal: Yes: Normal Bowel Sounds, Soft Musculoskeletal: Yes: WNL Extremities: Yes: WNL Edema: No Neurological: Yes: Alert, Oriented Labs: CBC, BMP 09/19/16 12:45 Imaging - Results Cat Scan: Report Reviewed Ultrasound: Report Reviewed Assessment/Plan AP; DKA DM Depression Continue D5 1/2NS AT 150 CC/hr electrolyte replacement as necessary CMP stat Levemir 10 units stat BGM Q 3 hr for now Novolog SS coverage consider psychiatry consult Will f/u
[2016-09-19] MEDS ORDERED: INSULIN DETEMIR 100 UNITS/ML MDV SQ ONE ×2 (18:49→22:45)
[2016-09-19 19:28] LABS: ANION GAP 11 (8-16); BILIRUBIN,TOTAL 0.4 mg/dL (0.2-1.0); CALCIUM 7.8 mg/dL (8.5-10.1); CO2 18 mmol/L (21-32); CREATININE 0.6 mg/dL (0.55-1.02); GLUCOSE,RANDOM 70 mg/dL (74-106); SGOT/AST 31 U/L (15-37); SGPT/ALT 56 U/L (12-78); TOT PROT 5.6 g/dl (6.4-8.2)
[2016-09-19 19:29] LABS: ALK PHOS 115 U/L (45-117)
[2016-09-19 19:36] LABS: MAGNESIUM 1.9 mg/dL (1.8-2.4); PHOSPHOROUS 2.3 mg/dL (2.5-4.9)
[2016-09-19] MEDS ORDERED: INSULIN (NOVOLOG) ASPART 100 UNITS/ML 10ML VIAL ONE (20:09)
[2016-09-19] MEDS: INSULIN SLIDING SCALE (NOVOLOG) 1 VIAL SQ SCH ×2 (20:18→23:41)
[2016-09-19] MEDS ORDERED: MUPIROCIN 2% TOPICAL OINTMENT FOR DECOLONIZATION NS SCH (22:00)
[2016-09-19] MEDS ORDERED: CHLORHEXIDINE GLUCONATE 4% CLEANSER FOR DECOLONIZATION TP SCH ×2 (22:00)
[2016-09-19 22:10] LABS: ANION GAP 11 (8-16); CALCIUM 8.1 mg/dL (8.5-10.1); CO2 19 mmol/L (21-32); CREATININE 0.7 mg/dL (0.55-1.02); GLUCOSE,RANDOM 114 mg/dL (74-106)
[2016-09-19] MEDS: D5-1/2NS+20 MEQ KCL - 1,000 ML IV SCH (23:42)
[2016-09-20] MEDS: INSULIN SLIDING SCALE (NOVOLOG) 1 VIAL SQ SCH ×2 (03:48→06:52)
[2016-09-20] MEDS: D5-1/2NS+20 MEQ KCL - 1,000 ML IV SCH (06:57)
[2016-09-20 07:35] LABS: BASOPHIL 0.5 % (0-2.0); EOSINOPHIL 1.6 % (0-4.5); MCH 30.9 pg (25.7-33.7); MCHC 33.5 g/dl (32.0-36.0); MEAN CELL VOLUME 92.3 fl (80-96); MEAN PLT VOLUME 9.1 fl (7.5-11.1); NEUTROPHILS 56.2 % (42.8-82.8); PLATELET COUNT 151 K/MM3 (134-434); RDW 14.1 % (11.6-15.6); WHITE BLOOD COUNT 4.3 K/mm3 (4.0-10.0)
[2016-09-20 07:58] LABS: ALBUMIN 2.8 g/dl (3.4-5.0); SGOT/AST 35 U/L (15-37); SGPT/ALT 52 U/L (12-78); TOT PROT 5.2 g/dl (6.4-8.2)
[2016-09-20 08:02] LABS: ALK PHOS 102 U/L (45-117); BILIRUBIN,TOTAL 0.3 mg/dL (0.2-1.0)
[2016-09-20 08:14] LABS: BILIRUBIN,DIRECT < 0.2 mg/dL (0.0-0.2)
--- NOTE | 2016-09-20 08:54 | CON.PSY ---
Psychiatry Consult Chief Complaint: I am a little depressed, my BF cheated on me wityh my best friend. Symptoms: reports: Depressed Mood - Previous Psychiatric Treatment Outpatient: None Inpatient: None - Previous Substance Abuse Treatment Outpatient: None - Current Medications Current Medications: Active Medications Enoxaparin Sodium (Lovenox -) 40 mg SQ DAILY [facility] Last Admin: 09/19/16 18:38 Dose: 40 mg Potassium Chloride/Dextrose/Sod Cl (D5-1/2ns+20 Meq Kcl -) 1,000 mls @ 125 mls/ hr IV ASDIR [facility] Last Admin: 09/20/16 06:57 Dose: 125 mls/hr Insulin Aspart (Novolog Vial Sliding Scale -) 1 vial SQ Q4H [facility] PRN Reason: Protocol Last Admin: 09/20/16 06:52 Dose: Not Given - Allergies Allergies: Allergies Allergy/AdvReac Type Severity Reaction Status Date / Time No Known Allergies Allergy Verified 09/19/16 09:14 - Current Living Status Usual Living Arrangement: With Child - Current Mental Status Evaluation Appearance: Well Groomed Attitude: Cooperative - Affect Affect: Constrictive Appropriateness: Appropriate to Content - Mood Mood: Depressed - Speech/Language Expressive: Coherent - Psychomotor Activity Psychomotor Activity: Normal - Thought Process Thought Process: Intact - Thought Content Hallucinations: Absent Delusions: Absent - Self Perception Self Perception: No Impairment - Cognition Attention: Alert Orientation: Time Memory, Immediate Recall: Intact Memory, Short Term: 3/3 Memory, Remote with Promptin/3 - Concentration Serial Sevens Intact: Yes Simple Calculations Intact: Yes - Abstraction Proverb Interpretation: Intact Judgement: Intact - Insight Insight: Intact - Impulse Control Impulse Control: Good Control - Suicidal Ideation Suicidal Ideation: No - Homicidal Ideation Homicidal Ideation: No Assessment/Plan 1) Start Cymbalta 30mg po od for depression. 2) supportive Pychotherapy 3) refer to local mental [facility] Clinic gor follow up.4) discharge home when medically stable.
[2016-09-20 08:56] LABS: MAGNESIUM 2.1 mg/dL (1.8-2.4); PHOSPHOROUS 1.9 mg/dL (2.5-4.9)
--- NOTE | 2016-09-20 09:17 | PN ---
Progress Note (short form) - Note Progress Note: Feels good Denies any complaints Vital Signs Period Temp Pulse Resp BP Sys/Jaramillo Pulse Ox Last 24 Hr 98.1 F-98.9 F 62-116 16-20 97-134/57-75 98-99 PE: AOx3 Neck: Supple, No JVD HEENT: PERRL, EOMI Lungs: CTA CVS: S1S2 Abd: Benign Ext: No edema Neuro: No focal deficit CMP Sodium 140 mmol/L (136-145) 09/19/16 21:00 Potassium 3.8 mmol/L (3.5-5.1) 09/19/16 21:00 Chloride 110 mmol/L (98-107) H 09/19/16 21:00 Carbon Dioxide 19 mmol/L (21-32) L 09/19/16 21:00 Anion Gap 11 (8-16) 09/19/16 21:00 BUN 9 mg/dL (7-18) 09/19/16 21:00 Creatinine 0.7 mg/dL (0.55-1.02) 09/19/16 21:00 Creat Clearance w eGFR > 60 (>60) 09/19/16 18:30 POC Glucometer 104 UNITS (()) 09/20/16 06:52 Random Glucose 114 mg/dL (74-106) H D 09/19/16 21:00 Hemoglobin A1c % 11.6 % (4.8-6.0) H D 09/20/16 06:10 Calcium 8.1 mg/dL (8.5-10.1) L 09/19/16 21:00 Phosphorus 1.9 mg/dL (2.5-4.9) L 09/20/16 06:10 Magnesium 2.1 mg/dL (1.8-2.4) 09/20/16 06:10 Total Bilirubin 0.3 mg/dL (0.2-1.0) D 09/20/16 06:10 Direct Bilirubin < 0.2 mg/dL (0.0-0.2) 09/20/16 06:10 AST 35 U/L (15-37) 09/20/16 06:10 ALT 52 U/L (12-78) 09/20/16 06:10 Alkaline Phosphatase 102 U/L (45-117) 09/20/16 06:10 Creatine Kinase 122 IU/L (26-192) 09/19/16 09:50 Troponin I < 0.02 ng/ml (0.00-0.05) 09/19/16 09:50 Total Protein 5.2 g/dl (6.4-8.2) L 09/20/16 06:10 Albumin 2.8 g/dl (3.4-5.0) L 09/20/16 06:10 Serum , Qual Negative 09/19/16 09:50 Current Medications Generic Name Dose Route Start Last Admin Trade Name Star PRN Reason Stop Dose Admin Duloxetine HCl 30 mg 09/20/16 10:00 Cymbalta - PO DAILY [facility] Enoxaparin Sodium 40 mg 09/19/16 14:15 09/19/16 18:38 Lovenox - SQ 40 mg DAILY [facility] Administration Potassium Chloride/Dextrose/Sod Cl 1,000 mls @ 125 mls/hr 09/19/16 22:45 06:57 D5-1/2ns+20 Meq Kcl - IV 125 mls/hr ASDIR [facility] Administration Insulin Aspart 1 vial 09/20/16 11:00 Novolog Vial Sliding Scale - SQ TIDAC [facility] Protocol Insulin Aspart 0 units 09/20/16 22:00 Novolog SQ HS [facility] Protocol Insulin Detemir 12 units 09/20/16 10:00 Levemir Vial SQ BID [facility] AP; DKA: Resolved DM: Depression Levemer 12 units BID Novolog SS coverage Nutrition consult Psychiatry consult noted
[2016-09-20] MEDS ORDERED: NAPH,MB-DB/K PH,MBDB POWDER PACKET PO ONE (09:31)
--- NOTE | 2016-09-20 09:58 | CONSULT ---
Consult - text type - Consultation Consultation Note: Neurology History of Present Illness The patient is a 31F with a PMH of T1DM and depression who presents to the ED with CP and SOB. The patient states that she has had leg swelling and SOB x 2 weeks after she has been bedbound due to depression after finding out her boyfriend cheated on her. She states that her CP started today and began as sharp and nonradiating, then transitioned to a dull/pressure-like pain. She also states that she feels very dry. Patient has not been eating or taking her DM or depression medication for 2 weeks now. Her blood glucose was 445. She also described LUE and LLE weakness which was 5-/5 on exam but question of effort. She completed CT head which did not show acute changes. She states this weakness has been ongoing for 5 months now. She denies any preceeding trauma or injury. She denies any falls. She is being seen by psych for depression. Past History - Past Medical History Allergies/Adverse Reactions: Allergies Allergy/AdvReac Type Severity Reaction Status Date / Time No Known Allergies Allergy Verified 09/19/16 09:14 Home Medications: Ambulatory Orders Insulin (Levemir) [Levemir Flexpen -] 15 units SQ BID 09/13/14 Insulin Sliding Scale [Novolog Vial Sliding Scale -] 0 units SQ TIDAC PRN Anemia: No Asthma: Yes (stable) Cancer: No Cardiac Disorders: No CVA: No COPD: No CHF: No Dementia: No Diabetes: Yes (TYPE 1) GI Disorders: No Disorders: No HTN: No Hypercholesterolemia: No Liver Disease: No Suicide Attempt (Hx): No Seizures: No Thyroid Disease: No - Surgical History Abdominal Surgery: No Appendectomy: No Cardiac Surgery: No Cholecystectomy: No Gastric Stapling: No GI Surgery: No Lung Surgery: No Neurologic Surgery: No Orthopedic Surgery: No - Reproductive History (#): 11 Para: 4 Therapeutic (s) & number: Yes (4) Spontaneous : 2 - Immunization History Td Vaccination: Yes Immunization Up to Date: Yes - Psycho/Social/Smoking Cessation Hx Anxiety: No Suicidal Ideation: No Smoking Status: No Smoking History: Former smoker Years of Tobacco Use: 4 Have you smoked in the past 12 months: Yes Number of Cigarettes Smoked Daily: 1 Cigars Per Day: 0 Information on smoking cessation initiated: No 'Breaking Loose' booklet given: 04/14/13 Hx Alcohol Use: No Drug/Substance Use Hx: No Substance Use Type: None Review of Systems - Review of Systems Able to Perform ROS?: Yes Is the patient limited Telugu proficient: No Constitutional: Yes: Fever, Loss of Appetite. No: Chills, Diaphoresis HEENTM: Yes: Blurred Vision, Recent change in vision, Double Vision Respiratory: Yes: Shortness of Breath. No: Cough, Wheezing, Hemoptysis Cardiac (ROS): Yes: Chest Pain, Lightheadedness, Palpitations ABD/GI: Yes: Constipated (x 3 days), Nausea, Poor Appetite, Poor Fluid Intake. No: Blood Streaked Bowels, Diarrhea, Vomiting, Abdominal cramping : Yes: Frequency. No: Burning, Dysuria, Discharge, Hematuria, Pain Neurological: Yes: Headache, Unsteady Gait. No: Numbness, Seizure, Tingling, Tremors, Weakness Psychiatric: Yes: Anxiety, Depression, Frequent Crying, Stressors, Sleep Pattern Change, Emotional Problems, Mood Swings, Change in Appetite Endocrine: Yes: Increased Thirst, Increased Urine Hematologic/Lymphatic: No: Symptoms Reported, See HPI, Anemia, Blood Clots, Easy Bleeding, Easy Bruising, Bleeding Diathesis, Lymph Node Abnormalities, Swollen Glands, Other *Physical Exam - Vital Signs Last Vital Signs Temp Pulse Resp BP Pulse Ox 98.3 F 116 H 20 134/75 98 09/19/16 09:14 09/19/16 10:08 09/19/16 10:08 09/19/16 10:08 09/19/16 10:08 - Physical Exam General Appearance: Yes: Nourished, Appropriately Dressed, Mild Distress HEENT: positive: Normal Voice, Hearing Grossly Normal. negative: Pale Conjunctivae, Scleral Icterus (R), Scleral Icterus (L) Respiratory/Chest: positive: Lungs Clear, Rapid RR, Wheezing (mild expiratory). negative: Chest Tender, Decreased Breath Sounds, Crackles, Rales, Rhonchi, Stridor, Dullness Cardiovascular: positive: Regular Rhythm, S1, S2, Tachycardia. negative: Diastolic Murmur, Systolic Murmur, Irregular Gastrointestinal/Abdominal: positive: Tender (midepigastric and RUQ), Flat, Soft. negative: Increased Bowel Sounds, Distended, Guarding, Rebound, Mass Musculoskeletal: negative: CVA Tenderness, CVA Tenderness (R), CVA Tenderness (L ) Extremity: positive: Pedal Edema (nonpitting, worse on L), Calf Tenderness (L side), Integumentary: positive: Dry, Warm, Swelling (b/l). negative: Jaundice, Clammy , Diaphoresis Neurologic: CN intact, speech normal, Sensory intact to cold and light touch, 5/ 5 on RUE and RLE, 5-/5 in LUE and LLE, reflexes 2+ CBCD WBC 4.3 K/mm3 (4.0-10.0) D 09/20/16 06:10 RBC 4.07 M/mm3 (3.60-5.2) 09/20/16 06:10 Hgb 12.6 GM/dL (10.7-15.3) D 09/20/16 06:10 Hct 37.5 % (32.4-45.2) D 09/20/16 06:10 MCV 92.3 fl (80-96) 09/20/16 06:10 MCHC 33.5 g/dl (32.0-36.0) 09/20/16 06:10 RDW 14.1 % (11.6-15.6) 09/20/16 06:10 Plt Count 151 K/MM3 (134-434) D 09/20/16 06:10 MPV 9.1 fl (7.5-11.1) D 09/20/16 06:10 CMP Sodium 140 mmol/L (136-145) 09/19/16 21:00 Potassium 3.8 mmol/L (3.5-5.1) 09/19/16 21:00 Chloride 110 mmol/L (98-107) H 09/19/16 21:00 Carbon Dioxide 19 mmol/L (21-32) L 09/19/16 21:00 Anion Gap 11 (8-16) 09/19/16 21:00 BUN 9 mg/dL (7-18) 09/19/16 21:00 Creatinine 0.7 mg/dL (0.55-1.02) 09/19/16 21:00 Creat Clearance w eGFR > 60 (>60) 09/19/16 18:30 Calcium 8.1 mg/dL (8.5-10.1) L 09/19/16 21:00 Total Bilirubin 0.3 mg/dL (0.2-1.0) D 09/20/16 06:10 AST 35 U/L (15-37) 09/20/16 06:10 ALT 52 U/L (12-78) 09/20/16 06:10 Alkaline Phosphatase 102 U/L (45-117) 09/20/16 06:10 Total Protein 5.2 g/dl (6.4-8.2) L 09/20/16 06:10 Albumin 2.8 g/dl (3.4-5.0) L 09/20/16 06:10 Medical Decision Making 31F with a PMH of T1DM and depression who presents to the ED with CP and SOB. The patient states that she has had leg swelling and SOB x 2 weeks after she has been bedbound due to depression after finding out her boyfriend cheated on her. She states that her CP started today and began as sharp and nonradiating, then transitioned to a dull/pressure-like pain. She also states that she feels very dry. Patient has not been eating or taking her DM or depression medication for 2 weeks now. Her blood glucose was 445. She also described LUE and LLE weakness which was 5-/5 on exam but question of effort. She completed CT head which did not show acute changes. She states this weakness has been ongoing for 5 months now. She denies any preceeding trauma or injury. She denies any falls. She is being seen by psych for depression. Symptoms unusual given age and lack of risk factors. Discussed CT head being normal and MRI brain which she will pursue as outpatient. Recommend further management and treatment of depression and possible conversion disorder cannot be ruled out. Tight glycemic control for Diabetes and medication compliance discussed and recommended.
[2016-09-20] MEDS ORDERED: DULoxetine HCL 30 MG CAPSULE.DR (FP) PO SCH (10:00)
[2016-09-20] MEDS ORDERED: INSULIN DETEMIR 100 UNITS/ML MDV SQ SCH (10:15)
[2016-09-20] MEDS: ENOXAPARIN NA (PORCINE) 40 MG/0.4 ML DISP.SYRIN SQ SCH (10:27)
[2016-09-20] MEDS ORDERED: INSULIN SLIDING SCALE (NOVOLOG) 1 VIAL SQ SCH ×2 (11:00→22:00)
[2016-09-20] MEDS ORDERED: IBUPROFEN 400 MG TABLET (FP) PO ONE (11:04)
[2016-09-20] MEDS ORDERED: INSULIN (NOVOLOG) ASPART 100 UNITS/ML 10ML VIAL ONE (11:25)
--- NOTE | 2016-09-20 13:51 | PN ---
Teaching Attending Note Name of Resident: Marshal Larios ATTENDING PHYSICIAN STATEMENT I saw and evaluated the patient. I reviewed the resident's note and discussed the case with the resident. I agree with the resident's findings and plan as documented. SUBJECTIVE:symptoms resolved. states weakness significantly improved. tolerating diet. denies CP, SOB, fever, chills, N/V/C/D OBJECTIVE: Last Vital Signs Temp Pulse Resp BP Pulse Ox 98.9 F 76 16 120/74 100 09/20/16 06:17 09/20/16 10:00 09/20/16 10:00 09/20/16 10:00 09/20/16 09:00 General NAD CV S1 S2 RRR no murmur/rub/gallop Lungs CTA B/L no wheezing/rales/rhonchi Abdomen soft NT/ND ASSESSMENT AND PLAN: 31yo F with PMH DM1 presented to the ER with weakness, SOB and CP and found to be in DKA 1. DKA- AG 28 BGM 445. responded rapidly to insulin IV. AG now closed. sugars controlled. A1c 11. instructed importance of medication compliance and need for close monitoring. will need to f/u with endo this week for further insulin adjustment. evaluated by endocrine here will d/c on levemir 12 units BID. iss. verbalized understanding of requirement for close monitoring 2. depression- counseled by psych. started on cymbalta. explained may take several weeks to feel effects of medication and not to discontinue on her own. will f/u with psych 3. hypophosphatemia- neutraphos 4. generalized weakness- likely due to uncontrolled sugars vs depression. CT head negative. now appears to be resolved. evalauted by neuro no intervention required at this time. can f/u with neuro as outpatient if symptoms re-occur 5. GB polyp- stable in size. will need routine surveillance 6. d/c planning home today. counseled in details need for diet and medication compliance and close follow up. verbalized understanding and agreement with plan. daughter present in room
[2016-09-20 14:48] VITALS: BP 118/73; PULSE 84; TEMP 98.6
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
== END 2016-09-20 15:56 | disposition home or self-care (01) | DRG 420 ==
LOC: JER 09:12 → JERBED 12:43 → J5S 19:15
PROVIDERS: ADMIT Internal Medicine; ATTEND Internal Medicine
DX: E13.10 Other specified diabetes mellitus with ketoacidosis without coma (principal); Z79.4 Long term (current) use of insulin; F32.9 Major depressive disorder, single episode, unspecified; E83.39 Other disorders of phosphorus metabolism; K82.4 Cholesterolosis of gallbladder; R53.1 Weakness; Z87.891 Personal history of nicotine dependence; R74.0 Nonspecific elevation of levels of transaminase and lactic acid dehydrogenase [LDH]; Z91.14 Patient's other noncompliance with medication regimen
CPT/HCPCS: 36415; 36600; 70450-TC; 76705-TC; 80048; 80053; 80076; 80307; 81003; 81015; 82009; 82803; 83036; 83735; 84100; 84484; 84703; 85025; 85379; 93005; 93010; 93971-TC; 99285-25

== ENCOUNTER 2016-10-04 13:23 | Inpatient (IN) | payer OTHER ==
--- NOTE | 2016-10-04 14:55 | PDOC ---
History of Present Illness - General Chief Complaint: Injury Stated Complaint: FALL/ RT KNEE PAIN Time Seen by Provider: 10/04/16 13:35 History Source: Patient Exam Limitations: No Limitations - History of Present Illness Initial Comments: 10/04/16 15:40 CHIEF COMPLAINT: Right ankle right knee pain Rate of present illness: Patient is a 31-year-old female with a history of this type I diabetes and depression here today due to patient falling on stairs onto her right knee. Patient was initially seen in fast track had an x-ray of her right knee that revealed a large joint effusion with concern for intra- articular fracture of the tibia spines. Patient was placed in an immobilizer and sent to main ED for further evaluation since patient's BGM was over 500 in triage. Reports that she takes Levemir 30 units in the morning and last took at today at 10:30 AM. Patient did not get a chance to take her novolog for which she takes on a sliding scale due to the fall on the stairs. Patient denies any nausea, vomiting, difficulty breathing. Patient is currently complaining of right knee pain that is severe a 10 out of 10 currently. PCP: Dr. Leal surgical hx rt. 5th finger jt fracture repair PMHX: depression, diabetes type 1 Medications:levemir 30 units sq, novolog sliding scale 10/04/16 17:51 Timing/Duration: constant (right knee pain ) Severity: severe (rt. knee) Associated Symptoms: reports: denies symptoms Past History - Past Medical History Allergies/Adverse Reactions: Allergies Allergy/AdvReac Type Severity Reaction Status Date / Time No Known Allergies Allergy Verified 10/04/16 13:29 Home Medications: Ambulatory Orders Insulin Sliding Scale [Novolog Vial Sliding Scale -] 0 units SQ TIDAC PRN Duloxetine HCl [Cymbalta -] 30 mg PO DAILY #30 cap 09/20/16 Insulin (Levemir) [Levemir Flexpen -] 30 units SQ DAILY 10/04/16 Anemia: No Asthma: Yes (stable) Cancer: No Cardiac Disorders: No CVA: No COPD: No CHF: No Dementia: No Diabetes: Yes (TYPE 1) GI Disorders: No Disorders: No HTN: No Hypercholesterolemia: No Liver Disease: No Suicide Attempt (Hx): No Seizures: No Thyroid Disease: No - Surgical History Abdominal Surgery: No Appendectomy: No Cardiac Surgery: No Cholecystectomy: No Gastric Stapling: No GI Surgery: No Lung Surgery: No Neurologic Surgery: No Orthopedic Surgery: No - Reproductive History (#): 11 Para: 4 Therapeutic (s) & number: Yes (4) Spontaneous : 2 - Immunization History Td Vaccination: Yes Immunization Up to Date: Yes - Psycho/Social/Smoking Cessation Hx Anxiety: No Suicidal Ideation: No Smoking Status: No Smoking History: Never smoked Years of Tobacco Use: 4 Have you smoked in the past 12 months: Yes Number of Cigarettes Smoked Daily: 1 Cigars Per Day: 0 'Breaking Loose' booklet given: 04/14/13 Hx Alcohol Use: No Drug/Substance Use Hx: No Substance Use Type: None Review of Systems - Review of Systems Able to Perform ROS?: Yes Constitutional: No: Symptoms Reported HEENTM: No: Symptoms Reported Respiratory: No: Symptoms reported Cardiac (ROS): No: Symptoms Reported ABD/GI: No: Symptoms Reported : No: Symptoms Reported Musculoskeletal: Yes: Joint Pain (rt knee pain with swelling ), Joint Swelling ( rt. knee) Integumentary: No: Symptoms Reported Neurological: No: Symptoms reported Endocrine: No: Symptoms Reported *Physical Exam - Vital Signs Last Vital Signs Temp Pulse Resp BP Pulse Ox 98.0 F 105 H 20 114/77 99 10/04/16 13:24 10/04/16 13:24 10/04/16 13:24 10/04/16 13:24 10/04/16 13:24 - Physical Exam General Appearance: Yes: Appropriately Dressed Respiratory/Chest: positive: Lungs Clear, Normal Breath Sounds. negative: Chest Tender, Respiratory Distress Cardiovascular: positive: Regular Rhythm, Regular Rate, S1, S2 Gastrointestinal/Abdominal: positive: Normal Bowel Sounds, Soft. negative: Tender, Organomegaly, Distended, Guarding, Rebound, Tenderness, Hepatomegaly, Spleenomegaly Extremity: positive: Normal Capillary Refill, Tender (rt. anterior knee ), Swelling (rt. knee anterior/ suprapatella ). negative: Normal Inspection (rt. knee), Normal Range of Motion (rt. knee ) Integumentary: positive: Swelling (rt. knee ) Neurologic: positive: Alert, Normal Response, Respond to painful stimul, Responsive Heart Score/ECG Review - ECG Impressions Comment:: 10/04/16 18:[address] ROMERO ED Treatment Course - LABORATORY CBC & Chemistry Diagram: 10/05/16 05:20 10/05/16 05:20 - ADDITIONAL ORDERS Additional order review: Laboratory Results 10/04/16 13:45 Urine HCG, Qual Negative Medical Decision Making - Medical Decision Making 10/04/16 15:44 Patient is a 31-year-old female with a history of this type I diabetes and depression here today due to patient falling on stairs onto her right knee. Patient was initially seen in fast track had an x-ray of her right knee that revealed a large joint effusion with concern for intra-articular fracture of the tibia spines. Patient was placed in an immobilizer and sent to main ED for further evaluation since patient's BGM was over 500 in triage. Reports that she takes Levemir 30 units in the morning and last took at today at 10:30 AM. Patient did not get a chance to take her Sorin for which she takes on a sliding scale due to the fall on the stairs. Patient denies any nausea, vomiting , difficulty breathing. Patient is currently complaining of right knee pain that is severe a 10 out of 10 currently. rt knee large joint effusion, linear lucency and irregularity involving the tibia spines raising possibility of fractures to the tibial spine region per hyperglycemia r/o DKA PLAN: cbc with diff bmp acetone percocet 5mg/325 mg po now ortho consult called IV insert NS 1 liter bolus now than additional 1 liter will wait to obtain acetone if this is positive will give regular insulin 7 units per hour 10/04/16 16:38 Laboratory Tests 10/04/16 10/04/16 10/04/16 13:45 13:55 15:51 WBC 7.8 D RBC 4.74 Hgb 14.9 D Hct 43.8 D MCV 92.4 MCH 31.4 MCHC 33.9 RDW 13.8 Plt Count 199 D MPV 10.0 Neutrophils % 82.3 D Lymphocytes % 13.0 D Monocytes % 4.0 Eosinophils % 0.2 D Basophils % 0.5 Sodium Potassium Chloride Carbon Dioxide Anion Gap BUN Creatinine POC Glucometer > 400 Random Glucose Calcium Urine HCG, Qual Negative 10/04/16 15:51 WBC RBC Hgb Hct MCV MCH MCHC RDW Plt Count MPV Neutrophils % Lymphocytes % Monocytes % Eosinophils % Basophils % Sodium 132 L Potassium 4.6 D Chloride 94 L D Carbon Dioxide 20 L Anion Gap 18 H BUN 17 D Creatinine 0.8 POC Glucometer Random Glucose 376 H* D Calcium 9.2 Urine HCG, Qual 10/04/16 16:42 10/04/16 16:42 10/04/16 16:44 10/04/16 16:58 Ortho called back Judi Burks PA she reviewed xray with Dr. Leong pt. to remain in knee immoblizer, non weight bearing and to follow up in office tomorrow 10/04/16 17:34 Laboratory Tests 10/04/16 15:51 Acetone, Qual Positive moderate 2+ H 10/04/16 17:38 Will put patient on regular insulin drip 0.1 mg/kg/hr due to elevated acetone positive moderate 2 + 10/04/16 17:52 will add EKG, chest xray PA/lateral pt. to be admitted to ICU Dr. Parker notified, hospitalist called Dr. Stephanie Smith , PT. WILL need inpt ortho pt to be non weigh bearing, keep knee immobilizer on 10/04/16 17:52 10/04/16 18:0 dilaudid 1 mg IV push now 10/04/16 18:01 10/04/16 18:20 10/04/16 18:45 10/04/16 18:55 10/05/16 12:04 *DC/Admit/Observation/Transfer Diagnosis at time of Disposition: Diabetic ketoacidosis associated with type 1 diabetes mellitus Qualifiers: Diabetes mellitus complication detail: without coma Qualified Code(s): E10.10 - Type 1 diabetes mellitus with ketoacidosis without coma Tibia fracture Qualifiers: Encounter type: initial encounter Tibia location: spine Fracture type: closed Fracture alignment: nondisplaced Laterality: right Qualified Code(s): S82.114A - Nondisplaced fracture of right tibial spine, initial encounter for closed fracture - Discharge Dispostion Condition at time of disposition: Stable Admit: Yes - Referrals
[2016-10-04 16:09] LABS: BASOPHIL 0.5 % (0-2.0); EOSINOPHIL 0.2 % (0-4.5); MCH 31.4 pg (25.7-33.7); MCHC 33.9 g/dl (32.0-36.0); MEAN CELL VOLUME 92.4 fl (80-96); NEUTROPHILS 82.3 % (42.8-82.8); PLATELET COUNT 199 K/MM3 (134-434); RDW 13.8 % (11.6-15.6); WHITE BLOOD COUNT 7.8 K/mm3 (4.0-10.0)
[2016-10-04 16:33] LABS: ANION GAP 18 (8-16); CALCIUM 9.2 mg/dL (8.5-10.1); CO2 20 mmol/L (21-32); CREATININE 0.8 mg/dL (0.55-1.02)
[2016-10-04 16:35] LABS: GLUCOSE,RANDOM 376 mg/dL (74-106)
[2016-10-04] MEDS ORDERED: SODIUM CHLORIDE 0.9% 1000 ML INFUS.BAG IV ONE (16:39)
[2016-10-04 16:51] LABS: URINE APPEARANCE CLEAR; URINE BILIRUBIN NEGATIVE (NEGATIVE); URINE BLOOD NEGATIVE (NEGATIVE); URINE COLOR STRAW; URINE GLUCOSE (UA) 3+ (NEGATIVE); URINE KETONE 2+ (NEGATIVE); URINE LEUK ESTERASE NEGATIVE (NEGATIVE); URINE NITRITE NEGATIVE (NEGATIVE); URINE PROTEIN NEGATIVE (NEGATIVE); URINE UROBILINOGEN NEGATIVE mg/dL (0.2-1.0)
[2016-10-04] MEDS ORDERED: INSULIN REGULAR 100 UNITS in SODIUM CHLORIDE 99 ML IVPB SCH (17:45)
--- NOTE | 2016-10-04 17:53 | PDOC ---
*Physical Exam - Vital Signs Last Vital Signs Temp Pulse Resp BP Pulse Ox 98.0 F 105 H 20 114/77 99 10/04/16 13:24 10/04/16 13:24 10/04/16 13:24 10/04/16 13:24 10/04/16 13:24 ED Treatment Course - LABORATORY CBC & Chemistry Diagram: 10/05/16 05:20 10/05/16 05:20 - ADDITIONAL ORDERS Additional order review: Laboratory Results 10/04/16 10/04/16 10/04/16 16:31 15:51 15:51 Sodium 132 L Potassium 4.6 D Chloride 94 L D Carbon Dioxide 20 L Anion Gap 18 H BUN 17 D Creatinine 0.8 POC Glucometer Random Glucose 376 H* D Calcium 9.2 Urine Color Straw Urine Appearance Clear Urine pH 5.0 Urine Protein Negative Urine Glucose (UA) 3+ H Urine Ketones 2+ H Urine Blood Negative Urine Nitrite Negative Urine Bilirubin Negative Urine Urobilinogen Negative Ur Leukocyte Esterase Negative Urine HCG, Qual Acetone, Qual Positive moderate 2+ H 10/04/16 10/04/16 13:55 13:45 Sodium Potassium Chloride Carbon Dioxide Anion Gap BUN Creatinine POC Glucometer > 400 Random Glucose Calcium Urine Color Urine Appearance Urine pH Urine Protein Urine Glucose (UA) Urine Ketones Urine Blood Urine Nitrite Urine Bilirubin Urine Urobilinogen Ur Leukocyte Esterase Urine HCG, Qual Negative Acetone, Qual 10/04/16 10/04/16 15:51 13:55 RBC 4.74 MCV 92.4 MCHC 33.9 RDW 13.8 MPV 10.0 Neutrophils % 82.3 D Lymphocytes % 13.0 D Monocytes % 4.0 Eosinophils % 0.2 D Basophils % 0.5 POC Glucometer > 400 - Medications Given in the ED: ED Medications Discontinued Medications Generic Name Dose Route Start Last Admin Trade Name Freq PRN Reason Stop Dose Admin Oxycodone/Acetaminophen 1 combo 10/04/16 14:54 10/04/16 15:22 Percocet 5/325 - PO 10/04/16 14:55 1 combo ONCE ONE Administration Sodium Chloride 1,000 ml 10/04/16 16:39 10/04/16 17:10 Normal Saline - IV 10/04/16 16:40 1,000 ml ONCE ONE Administration Medical Decision Making - Medical Decision Making 10/04/16 19:31 Agree with [facility]'s evaluation, assessment, and plan. 31 F with h/o DM, DKA, presenting with knee pain s/p fall. XR shows tibial fx. Ortho aware. Labs notable for hyperglycemia, elevated anion gap with + ketones in blood. Pt started on insulin gtt Admit to ICU *DC/Admit/Observation/Transfer Diagnosis at time of Disposition: Diabetic ketoacidosis associated with type 1 diabetes mellitus Qualifiers: Diabetes mellitus complication detail: without coma Qualified Code(s): E10.10 - Type 1 diabetes mellitus with ketoacidosis without coma Tibia fracture Qualifiers: Encounter type: initial encounter Tibia location: spine Fracture type: closed Fracture alignment: nondisplaced Laterality: right Qualified Code(s): S82.114A - Nondisplaced fracture of right tibial spine, initial encounter for closed fracture - Discharge Dispostion Condition at time of disposition: Stable
[2016-10-04] MEDS ORDERED: HYDROmorphone HCL CARPU-JECT 1 MG/1 ML DISP.SYRIN IVPUSH ONE (18:01)
[2016-10-04] MEDS ORDERED: HYDROmorphone HCL CARPU-JECT 1 MG/1 ML DISP.SYRIN ONE (18:07)
[2016-10-04] MEDS ORDERED: INSULIN REGULAR HUMAN 100 UNITS/ML *VIAL ONE (18:07)
[2016-10-04] MEDS ORDERED: SODIUM CHLORIDE 0.9% 500 ML INFUS.BAG IV ONE (18:54)
[2016-10-04 19:13] LABS: VENOUS BLOOD GAS HCO3 19.5 meq/L (19-25); VENOUS PH 7.32 (7.32-7.42)
[2016-10-04] MEDS ORDERED: D5-1/2NS+20 MEQ KCL - 1,000 ML IV SCH (20:30)
[2016-10-04 20:56] LABS: ACETONE SERUM POSITIVE SMALL 1+ (NEGATIVE)
[2016-10-04 21:00] LABS: ANION GAP 9 (8-16); CALCIUM 8.3 mg/dL (8.5-10.1); CO2 26 mmol/L (21-32); CREATININE 0.5 mg/dL (0.55-1.02); GLUCOSE,RANDOM 68 mg/dL (74-106)
--- NOTE | 2016-10-04 21:01 | HP ---
CHIEF COMPLAINT: Knee pain PCP: Elvis HISTORY OF PRESENT ILLNESS: This is a 31 year old female with a significant past medical history of DM1 who presented to the ED s/p fall with knee pain. She was noted to be hyperglycemic greater than 500 in the ED. Her xray revealed possible tibia fracture. She denies N/V/D. She reports that she is hungry as she did not eat all day. She was on her way to make breakfast wehn she fell. She did take her levemir this morning as per her usual schedule but missed her novolog sliding scale. ER course was notable for: (1) BGM >500 (2) Glucose 376, anion gap 18 on BMP, sodium 132, corrected 134.8 (3) right knee xray with findings concerning for fracture at the tibia spines Recent Travel: pt denies PAST MEDICAL HISTORY: DM1 with previous DKA 2 weeks ago depression asthma PAST SURGICAL HISTORY: R 5th finger ORIF Social History: Smoking: pt denies tobacco Alcohol: pt denies Drugs: marijuana Allergies No Known Allergies Allergy (Verified 10/04/16 13:29) HOME MEDICATIONS: 3 Medication Instructions Recorded Insulin Sliding Scale [Novolog 0 units SQ TIDAC PRN 09/19/16 Vial Sliding Scale -] Duloxetine HCl [Cymbalta -] 30 mg PO DAILY #30 cap 09/20/16 Insulin (Levemir) [Levemir Flexpen 30 units SQ DAILY 10/04/16 -] REVIEW OF SYSTEMS CONSTITUTIONAL: Absent: fever, chills, diaphoresis, generalized weakness, malaise, loss of appetite, weight change HEENT: Absent: rhinorrhea, nasal congestion, throat pain, throat swelling, difficulty swallowing, mouth swelling, ear pain, eye pain, visual changes CARDIOVASCULAR: Absent: chest pain, syncope, palpitations, irregular heart rate, lightheadedness , peripheral edema RESPIRATORY: Absent: cough, shortness of breath, dyspnea with exertion, orthopnea, wheezing, stridor, hemoptysis GASTROINTESTINAL: Absent: abdominal pain, abdominal distension, nausea, vomiting, diarrhea, constipation, melena, hematochezia GENITOURINARY: Absent: dysuria, frequency, urgency, hesitancy, hematuria, flank pain, genital pain MUSCULOSKELETAL: Present: right knee pain Absent: myalgia, arthralgia, joint swelling, back pain, neck pain SKIN: Absent: rash, itching, pallor HEMATOLOGIC/IMMUNOLOGIC: Absent: easy bleeding, easy bruising, lymphadenopathy, frequent infections ENDOCRINE: Absent: unexplained weight gain, unexplained weight loss, heat intolerance, cold intolerance NEUROLOGIC: Absent: headache, focal weakness or paresthesias, dizziness, unsteady gait, seizure, mental status changes, bladder or bowel incontinence PSYCHIATRIC: Absent: anxiety, depression, suicidal or homicidal ideation, hallucinations. PHYSICAL EXAMINATION Vital Signs - 24 hr 3 10/04/16 10/04/16 18:25 18:49 Temperature 98 F Pulse Rate [ 100 H Right Radial] Respiratory 18 18 Rate Blood Pressure 123/76 [Right Arm] O2 Sat by Pulse 99 99 Oximetry (%) GENERAL: Awake, alert, and fully oriented, in no acute distress. HEAD: Normal with no signs of trauma. EYES: Pupils equal, round and reactive to light, extraocular movements intact, sclera anicteric, conjunctiva clear. No lid lag. EARS, NOSE, THROAT: Ears normal, nares patent, oropharynx clear without exudates. Moist mucous membranes. NECK: Normal range of motion, supple without lymphadenopathy, JVD, or masses. LUNGS: Breath sounds equal, clear to auscultation bilaterally. No wheezes, and no crackles. No accessory muscle use. HEART: Regular rate and rhythm, normal S1 and S2 without murmur, rub or gallop. ABDOMEN: Soft, nontender, not distended, normoactive bowel sounds, no guarding, no rebound, no masses. No hepatomegaly or splenomegaly. MUSCULOSKELETAL: Normal range of motion at all joints. No bony deformities or tenderness. No CVA tenderness. UPPER EXTREMITIES: 2+ pulses, warm, well-perfused. No cyanosis. No clubbing. No peripheral edema. LOWER EXTREMITIES: 2+ pulses, warm, well-perfused. No calf tenderness. No peripheral edema. right knee with soft tissue swelling, knee immobilizer in place per ED NEUROLOGICAL: Cranial nerves II-XII intact. Normal speech. Normal gait. PSYCHIATRIC: Cooperative. Good eye contact. Appropriate mood and affect. SKIN: Warm, dry, normal turgor, no rashes or lesions noted, normal capillary refill. Laboratory Results - last 24 hr 3 10/04/16 10/04/16 10/04/16 10/04/16 10/04/16 10/04/16 13:45 13:55 15:51 15:51 16:31 18:18 WBC 7.8 D RBC 4.74 Hgb 14.9 D Hct 43.8 D MCV 92.4 MCH 31.4 MCHC 33.9 RDW 13.8 Plt Count 199 D MPV 10.0 Neutrophils % 82.3 D Lymphocytes % 13.0 D Monocytes % 4.0 Eosinophils % 0.2 D Basophils % 0.5 VBG pH POC VBG pCO2 POC VBG pO2 Mixed VBG HCO3 Sodium 132 L Potassium 4.6 D Chloride 94 L D Carbon Dioxide 20 L Anion Gap 18 H BUN 17 D Creatinine 0.8 POC Glucometer > 400 260 Random Glucose 376 H* D Calcium 9.2 Urine Color Straw Urine Appearance Clear Urine pH 5.0 Ur Specific [place] 1.015 Urine Protein Negative Urine Glucose (UA) 3+ H Urine Ketones 2+ H Urine Blood Negative Urine Nitrite Negative Urine Bilirubin Negative Urine Urobilinogen Negative Ur Leukocyte Esterase Negative Urine HCG, Qual Negative Acetone, Qual Positive moderate 2+ H 3 10/04/16 10/04/16 18:18 19:10 VBG pH 7.32 D POC VBG pCO2 38.9 D POC VBG pO2 70.2 H D Mixed VBG HCO3 19.5 POC Glucometer 260.83148 ASSESSMENT/PLAN: 31yF with PMH DM1, depression, asthma presented to the ED for right knee pain; she was noted to have elevated BGM. She is being admitted for further evaluation. DKA - started on insulin drip in ED - BGM now 78, 81, will dc insulin drip - BMP, AG, ketones now - start D51/2NS +20mEq KCL @ 150cc/hr - repeat BGM one hour - pt already took her long acting insulin this am. Right knee pain, possible tibial spine fracture - ortho consult, dr. camacho rn occupational - knee immobilizer - non weight bearing - ice to knee DVT PPX - defer heparin until after ortho consult as may need OR FEN - D51/2 NS +20KCL @150mL/HR - BMP now - diabetic diet Dispo: pt currently requires inpatient monitoring in the ICU for management of her critical condition. Visit type - Emergency Visit Emergency Visit: Yes ED Registration Date: 10/04/16 Care time: The patient presented to the Emergency Department on the above date and was hospitalized for further evaluation of their emergent condition. - New Patient This patient is new to me today: Yes Date on this admission: 10/04/16 - Critical Care Critical Care patient: Yes Total Critical Care Time (in minutes): 60 Critical Care Statement: The care of this patient involved high complexity decision making to prevent further life threatening deterioration of the patient 's condition and/or to evaluate & treat vital organ system(s) failure or risk of failure.
[2016-10-04] MEDS ORDERED: POTASSIUM CHLORIDE TABS 20 MEQ TABLET.ER (FP) PO ONE (21:16)
[2016-10-04] MEDS ORDERED: POTASSIUM CHLORIDE ORAL LIQUID 20 MEQ/15 ML PO ONE (21:22)
[2016-10-04] MEDS ORDERED: CHLORHEXIDINE GLUCONATE 4% CLEANSER FOR DECOLONIZATION TP SCH (22:00)
[2016-10-04] MEDS: MUPIROCIN 2% TOPICAL OINTMENT FOR DECOLONIZATION NS SCH (22:05)
[2016-10-04] MEDS: HYDROmorphone HCL CARPU-JECT 1 MG/1 ML DISP.SYRIN IVPUSH PRN (22:06)
[2016-10-04 22:32] VITALS: BMI 28.9
--- NOTE | 2016-10-04 22:56 | CONSULT ---
Consult Consult Specialty:: Pulmonary Critical Care Reason for Consultation:: DKA - History of Present Illness Chief Complaint: s/p Fall, knee pain History of Present Illness: Pt is a 31 yo female with history of Type I diabetes and depression who presented with R knee pain after a fall. X-ray of the knee concerning for tibial fracture, course c/b by DKA requiring insulin drip. Admitted to ICU for close monitoring. Pt was initially seen in fast track for her knee pain after a fall, x-ray showed large joint effusion with c/f intra-articular fracture of the tibia spines. Immobilizer placed and ortho team consulted. Admission labs notable for glucose of 376, AG of 18, +ketones. Patient takes Levemir 30 units in the morning (last this AM), also takes sliding scale novolog which she wasnt able to do given her fall. She was started on an insulin drip in ED and her AG closed shortly thereafter (last AG of 9). Pt transferred to ICU for further monitoring. Of note, insulin drip is now discontinued. Active Medications Chlorhexidine Gluconate (Hibiclens For Decolonization -) 1 applic TP HS [facility] Last Admin: 10/04/16 22:04 Dose: 1 applic Hydromorphone HCl (Dilaudid Injection -) 0.5 mg IVPUSH Q4H PRN PRN Reason: PAIN Last Admin: 10/04/16 22:06 Dose: 0.5 mg Insulin Aspart (Novolog Vial Sliding Scale -) 1 vial SQ Q2H [facility] PRN Reason: Protocol Mupirocin (Bactroban Ointment (For Decolonization) -) 1 applic NS BID [facility] Stop: 10/09/16 21:59 Last Admin: 10/04/16 22:05 Dose: 1 applic - Past Medical History Pulmonary: Yes: Asthma ...LMP: 04/20/12 ...: No Endocrine: Yes: Diabetes Mellitus - Alcohol/Substance Use Hx Alcohol Use: No - Smoking History Smoking history: Never smoked Have you smoked in the past 12 months: Yes Aproximately how many cigarettes per day: 1 - Social History Usual Living Arrangement: With Child Home Medications - Allergies Allergies/Adverse Reactions: Allergies Allergy/AdvReac Type Severity Reaction Status Date / Time No Known Allergies Allergy Verified 10/04/16 13:29 - Home Medications Home Medications: Ambulatory Orders Insulin Sliding Scale [Novolog Vial Sliding Scale -] 0 units SQ TIDAC PRN Duloxetine HCl [Cymbalta -] 30 mg PO DAILY #30 cap 09/20/16 Insulin (Levemir) [Levemir Flexpen -] 30 units SQ DAILY 10/04/16 Family Disease History - Family Disease History Family Disease History: Diabetes: Father Review of Systems Findings/Remarks: K knee pain Physical Exam Vital Signs: Vital Signs Temperature 98.7 F 10/04/16 22:25 Pulse Rate 96 H 10/04/16 22:25 Respiratory Rate 18 10/04/16 22:25 Blood Pressure 119/77 10/04/16 22:25 O2 Sat by Pulse Oximetry (%) 98 10/04/16 22:25 Constitutional: Yes: No Distress Eyes: Yes: WNL HENT: Yes: WNL Neck: Yes: WNL Cardiovascular: Yes: Regular Rate and Rhythm Respiratory: Yes: CTA Bilaterally Gastrointestinal: Yes: WNL Musculoskeletal: Yes: Other (R knee pain). No: Joint Swelling, Muscle Weakness Extremities: Yes: WNL Edema: No Peripheral Pulses WNL: Yes Neurological: Yes: WNL Labs: CBC, BMP 10/04/16 20:13 CBCD WBC 7.8 K/mm3 (4.0-10.0) D 10/04/16 15:51 RBC 4.74 M/mm3 (3.60-5.2) 10/04/16 15:51 Hgb 14.9 GM/dL (10.7-15.3) D 10/04/16 15:51 Hct 43.8 % (32.4-45.2) D 10/04/16 15:51 MCV 92.4 fl (80-96) 10/04/16 15:51 MCHC 33.9 g/dl (32.0-36.0) 10/04/16 15:51 RDW 13.8 % (11.6-15.6) 10/04/16 15:51 Plt Count 199 K/MM3 (134-434) D 10/04/16 15:51 MPV 10.0 fl (7.5-11.1) 10/04/16 15:51 CMP Sodium 139 mmol/L (136-145) 10/04/16 20:13 Potassium 3.3 mmol/L (3.5-5.1) L D 10/04/16 20:13 Chloride 104 mmol/L (98-107) D 10/04/16 20:13 Carbon Dioxide 26 mmol/L (21-32) D 10/04/16 20:13 Anion Gap 9 (8-16) 10/04/16 20:13 BUN 14 mg/dL (7-18) 10/04/16 20:13 Creatinine 0.5 mg/dL (0.55-1.02) L D 10/04/16 20:13 Calcium 8.3 mg/dL (8.5-10.1) L 10/04/16 20:13 Problem List - Problems (1) Diabetic ketoacidosis associated with type 1 diabetes mellitus Code(s): E10.10 - TYPE 1 DIABETES MELLITUS WITH KETOACIDOSIS WITHOUT COMA Qualifiers: Diabetes mellitus complication detail: without coma Qualified Code(s): E10.10 - Type 1 diabetes mellitus with ketoacidosis without coma Assessment/Plan ASSESSMENT/PLAN: Pt is a 31 yo female with history of Type I diabetes and depression who presented with R knee pain after a fall. X-ray of the knee concerning for tibial fracture, course c/b by DKA requiring insulin drip. Currently with closed anion gap, admitted to ICU for close monitoring. -FS Q2hrs -sliding scale insulin Q2hr -long acting insulin in AM -diabetic diet -BMP Q6hrs -ortho following for tibial fracture -pain meds prn for knee pain -hold off heparin SubQ in case surgical intervention for fracture Nancy Negro Critical care time: 35 min
[2016-10-04] MEDS: INSULIN SLIDING SCALE (NOVOLOG) 1 VIAL SQ SCH (23:14)
[2016-10-05] MEDS: INSULIN SLIDING SCALE (NOVOLOG) 1 VIAL SQ SCH ×7 (02:02→21:30)
[2016-10-05] MEDS: HYDROmorphone HCL CARPU-JECT 1 MG/1 ML DISP.SYRIN IVPUSH PRN ×5 (02:09→18:09)
[2016-10-05 07:07] LABS: BASOPHIL 0.5 % (0-2.0); EOSINOPHIL 1.3 % (0-4.5); MCH 30.8 pg (25.7-33.7); MCHC 33.2 g/dl (32.0-36.0); MEAN CELL VOLUME 92.7 fl (80-96); MEAN PLT VOLUME 9.5 fl (7.5-11.1); NEUTROPHILS 60.9 % (42.8-82.8); PLATELET COUNT 148 K/MM3 (134-434); RDW 13.9 % (11.6-15.6); WHITE BLOOD COUNT 6.1 K/mm3 (4.0-10.0)
[2016-10-05 07:25] LABS: ANION GAP 7 (8-16); CALCIUM 8.3 mg/dL (8.5-10.1); CO2 28 mmol/L (21-32); CREATININE 0.6 mg/dL (0.55-1.02); GLUCOSE,RANDOM 183 mg/dL (74-106); PHOSPHOROUS 3.3 mg/dL (2.5-4.9)
[2016-10-05] MEDS: MUPIROCIN 2% TOPICAL OINTMENT FOR DECOLONIZATION NS SCH ×2 (10:37→21:20)
--- NOTE | 2016-10-05 11:13 | EKG ---
Test Reason : Blood Pressure : / mmHG Vent. Rate : 083 BPM Atrial Rate : 083 BPM P-R Int : 148 ms QRS Dur : 086 ms QT Int : 386 ms P-R-T Axes : 054 065 044 degrees QTc Int : 453 ms NORMAL SINUS RHYTHM NORMAL ECG WHEN COMPARED WITH ECG OF 19-SEP-2016 09:19, NO SIGNIFICANT CHANGE WAS FOUND Confirmed by OLGA LIDIA OLIVARES MD ([id number]) on 10/05/2016 11:13:04 AM Referred By: Confirmed By:OLGA LIDIA OLIVARES MD
--- NOTE | 2016-10-05 12:09 | PN ---
Teaching Attending Note Name of Resident: Luis A Schneider ATTENDING PHYSICIAN STATEMENT I saw and evaluated the patient. I reviewed the resident's note and discussed the case with the resident. I agree with the resident's findings and plan as documented. SUBJECTIVE: Pt seen and examined in the ICU. Anion gap closed, off insulin gtt. c/o right knee pain and swelling. OBJECTIVE: Last Vital Signs Temp Pulse Resp BP Pulse Ox 98.3 F 83 18 112/79 99 10/05/16 10:00 10/05/16 10:00 10/05/16 10:00 10/05/16 10:00 10/05/16 08:00 Intake & Output 10/02/16 10/03/16 10/04/16 10/05/16 23:59 23:59 23:59 23:59 Intake Total 300 Output Total 1 Balance 299 Weight 163 lb 6.4 oz 164 lb Gen: NAD at rest Heart: RRR Lung: clear to auscultation bilaterally Abd: soft, nontender Ext: R knee edema, erythema CBC, BMP 10/05/16 05:20 10/05/16 05:20 Active Medications Chlorhexidine Gluconate (Hibiclens For Decolonization -) 1 applic TP HS [facility] Last Admin: 10/04/16 22:04 Dose: 1 applic Hydromorphone HCl (Dilaudid Injection -) 0.5 mg IVPUSH Q4H PRN PRN Reason: PAIN Last Admin: 10/05/16 10:18 Dose: 0.5 mg Insulin Aspart (Novolog Vial Sliding Scale -) 1 vial SQ ACHS [facility] PRN Reason: Protocol Mupirocin (Bactroban Ointment (For Decolonization) -) 1 applic NS BID [facility] Stop: 10/09/16 21:59 Last Admin: 10/05/16 10:37 Dose: 1 applic Non-Formulary Medication (Insulin (Levemir) [Levemir Flexpen -]) 30 units SQ DAILY [facility] ASSESSMENT AND PLAN: Diabetic Ketoacidosis resolved Right Tibial Fracture DM - pain control - resume home levemir dose of 30 units daily - novolog coverage - ortho eval - diabetic diet - DVT prophylaxis
[2016-10-05] MEDS ORDERED: INSULIN DETEMIR 100 UNITS/ML MDV SQ ONE (12:22)
[2016-10-05] MEDS ORDERED: HYDROmorphone HCL CARPU-JECT 1 MG/1 ML DISP.SYRIN IVPUSH PRN (12:38)
[2016-10-05] MEDS ORDERED: INSULIN DETEMIR 100 UNITS/ML MDV SQ SCH (12:45)
--- NOTE | 2016-10-05 15:53 | CONSULT ---
Consult - text type - Consultation Consultation Note: Subjective: 31 y/o female with a PMHx of DM, depression, asthma presents with right knee pain. Yesterday while in her boyfriend's home the patient was walking down the steps when she tripped on her slipper and fell. States she twisted the knee. Since then has had right knee swelling/pain. States she was unable to bear weight on the knee secondary to pain. Notes hearing a "pop" when she fell. Denies clicking/locking. No previous knee injury/surgery. No back pain , paresthesias. Denies fever, chills. No other complaints. PSHx: none Social Hx: Denies ETOH, smoking, illicits Family Hx: Non-contributory Objective: Vital Signs Temperature 98.3 F 10/05/16 14:58 Pulse Rate 86 10/05/16 14:58 Respiratory Rate 18 10/05/16 14:58 Blood Pressure 111/77 10/05/16 14:58 O2 Sat by Pulse Oximetry (%) 99 10/05/16 08:00 VSS. Afebrile. NAD. Laying comfortably in bed. Right knee exam: Knee immobilizer removed. Moderate swelling. Large effusion. Tender lateral joint line. Mild tenderness medial joint line. Ligamentous exam limited secondary to guarding. EHL/FHL intact. NVID. CBC, BMP 10/05/16 05:20 10/05/16 05:20 Right knee x-ray images and report reviewed with Dr. Leong demonstrating a large effusion. No evidence of definite fracture/dislocation. Possible tibial spine fracture. Assessment/Plan: 31 y/o female with a PMHx of DM, depression and asthma presents with right knee pain s/p fall at home yesterday -Reviewed today's findings with the patient. Discussed that there is likely an internal derangement of the knee consisting of a meniscus tear and/or ligamentous injury. -The patient will remain NWB in the knee immobilizer -Follow up in [address] Leong out-patient for repeat exam and possible MRI -Plan discussed with Dr. Leong who was in agreement
--- NOTE | 2016-10-05 16:10 | PN ---
Physical Exam: SUBJECTIVE: Patient seen and examined in the ICU. States she feels well, still having pain on her right lower leg. OBJECTIVE: Vital Signs Period Temp Pulse Resp BP Sys/Jaramillo Pulse Ox Last 24 Hr 97.2 F-98.9 F 74-100 12-19 94-143/58-92 98-99 GENERAL: Awake, alert, and fully oriented, in no acute distress. HEAD: Normal with no signs of trauma. EYES: Pupils equal, round and reactive to light, extraocular movements intact, sclera anicteric, conjunctiva clear. No lid lag. EARS, NOSE, THROAT: Ears normal, nares patent, oropharynx clear without exudates. Moist mucous membranes. NECK: Normal range of motion, supple without lymphadenopathy, JVD, or masses. HEART: Regular rate and rhythm, normal S1 and S2 without murmur, rub or gallop. ABDOMEN: Soft, nontender, not distended, normoactive bowel sounds, no guarding, no rebound, no masses. No hepatomegaly or splenomegaly. Laboratory Results - last 24 hr 10/04/16 10/04/16 10/04/16 18:18 19:10 19:52 WBC RBC Hgb Hct MCV MCH MCHC RDW Plt Count MPV Neutrophils % Lymphocytes % Monocytes % Eosinophils % Basophils % VBG pH 7.32 D POC VBG pCO2 38.9 D POC VBG pO2 70.2 H D Mixed VBG HCO3 19.5 Sodium Potassium Chloride Carbon Dioxide Anion Gap BUN Creatinine POC Glucometer 260.50457 79.54105 Random Glucose Calcium Phosphorus Magnesium Acetone, Qual 10/04/16 10/04/16 10/04/16 19:56 20:13 21:44 WBC RBC Hgb Hct MCV MCH MCHC RDW Plt Count MPV Neutrophils % Lymphocytes % Monocytes % Eosinophils % Basophils % VBG pH POC VBG pCO2 POC VBG pO2 Mixed VBG HCO3 Sodium 139 Potassium 3.3 L D Chloride 104 D Carbon Dioxide 26 D Anion Gap 9 BUN 14 Creatinine 0.5 L D POC Glucometer 81.13565 170.44170 Random Glucose 68 L D Calcium 8.3 L Phosphorus Magnesium Acetone, Qual Positive small 1+ H 10/04/16 10/05/16 10/05/16 22:58 02:00 05:20 WBC 6.1 RBC 4.06 Hgb 12.5 D Hct 37.6 MCV 92.7 MCH 30.8 MCHC 33.2 RDW 13.9 Plt Count 148 D MPV 9.5 Neutrophils % 60.9 D Lymphocytes % 28.0 D Monocytes % 9.3 D Eosinophils % 1.3 D Basophils % 0.5 VBG pH POC VBG pCO2 POC VBG pO2 Mixed VBG HCO3 Sodium Potassium Chloride Carbon Dioxide Anion Gap BUN Creatinine POC Glucometer 141.67223 151.89913 Random Glucose Calcium Phosphorus Magnesium Acetone, Qual 10/05/16 10/05/16 10/05/16 05:20 06:27 09:37 WBC RBC Hgb Hct MCV MCH MCHC RDW Plt Count MPV Neutrophils % Lymphocytes % Monocytes % Eosinophils % Basophils % VBG pH POC VBG pCO2 POC VBG pO2 Mixed VBG HCO3 Sodium 140 Potassium 4.2 D Chloride 105 Carbon Dioxide 28 Anion Gap 7 L BUN 17 D Creatinine 0.6 POC Glucometer 173.50053 148.08945 Random Glucose 183 H D Calcium 8.3 L Phosphorus 3.3 D Magnesium 2.0 Acetone, Qual Active Medications Generic Name Dose Route Start Last Admin Trade Name Freq PRN Reason Stop Dose Admin Chlorhexidine Gluconate 1 applic 10/04/16 22:00 10/04/16 22:04 Hibiclens For Decolonization - TP 1 applic HS [facility] Administration Hydromorphone HCl 1 mg 10/05/16 14:01 10/05/16 14:17 Dilaudid Injection - IVPUSH 1 mg Q4H PRN Administration PAIN Insulin Aspart 1 vial 10/05/16 16:30 Novolog Vial Sliding Scale - SQ ACHS [facility] Protocol Insulin Detemir 30 units 10/05/16 12:45 10/05/16 12:45 Levemir Vial SQ 30 units DAILY@0700 [facility] Administration Mupirocin 1 applic 10/04/16 22:00 10/05/16 10:37 Bactroban Ointment (For Decolonization) - NS 10/09/16 21:59 1 applic BID [facility] Administration ASSESSMENT/PLAN: Patient is a 31 year old female with a significant past medical history of diabetes, depression and asthma. She presented to the ED on 10/04/2016 with diabetec ketoacidosis and right fracture of tibia s/p fall at home. Imaging: Right knee x-ray images demonstrating a large effusion. No evidence of definite fracture/dislocation. Possible tibial spine fracture. Endocrine: DKA - resolved A/P: s/p insulin drip, anion gap now closed On Levemir 30 units daily, novolog sliding scale Monitor bgms ac/hs Muscular/skeletal: A/P: Right knee pain, possible tibial spine fracture s/p fall A/P: On a knee immobilzer, ice, elevation and pain management Seen by ortho, notes reviewed, likely internal derangement of the knee w/ meniscus tear and/or ligamentous injury Follow up in [address] Ross outpatient for repeat exam and MRI Remain with NWB in the knee immobilizer Prophylaxis: DVT: nwb, no evidence of fracture/dislocation/deferred starting on anticoag GI: deferred PT for crutches, NWB status Visit type - Emergency Visit Emergency Visit: Yes ED Registration Date: 10/04/16 Care time: The patient presented to the Emergency Department on the above date and was hospitalized for further evaluation of their emergent condition. - New Patient This patient is new to me today: Yes Date on this admission: 10/06/16 - Critical Care Critical Care patient: Yes Total Critical Care Time (in minutes): 60 Critical Care Statement: The care of this patient involved high complexity decision making to prevent further life threatening deterioration of the patient 's condition and/or to evaluate & treat vital organ system(s) failure or risk of failure. - Discharge Referral Referred to [facility] No
--- NOTE | 2016-10-05 16:23 | PN ---
Physical Exam: SUBJECTIVE: Patient seen and examined 31 y/o female with a PMHx of DM, depression, asthma presents with right knee pain. Yesterday while in her boyfriend's home patient fell down stairs and hurt her knee by unknown mechanism. Seen in the ED, Admitted to ICU for hyperglycemia. OBJECTIVE: Vital Signs Period Temp Pulse Resp BP Sys/Jaramillo Pulse Ox Last 24 Hr 97.2 F-98.9 F 70-100 12-19 94-143/58-92 98-99 VSS. Afebrile. NAD. Laying comfortably in bed. Cardio: RRR s1s2 appreciate REsp: normal breath sounds Right knee exam erythematous, swollen. Good pulse b/l good range of motion of foot. Imaging: xray right knee: large effusion. No evidence of definite fracture/dislocation. Possible tibial spine fracture. Laboratory Results - last 24 hr 10/04/16 10/04/16 10/04/16 18:18 19:10 19:52 WBC RBC Hgb Hct MCV MCH MCHC RDW Plt Count MPV Neutrophils % Lymphocytes % Monocytes % Eosinophils % Basophils % VBG pH 7.32 D POC VBG pCO2 38.9 D POC VBG pO2 70.2 H D Mixed VBG HCO3 19.5 Sodium Potassium Chloride Carbon Dioxide Anion Gap BUN Creatinine POC Glucometer 260.17531 79.43978 Random Glucose Calcium Phosphorus Magnesium Acetone, Qual 10/04/16 10/04/16 10/04/16 19:56 20:13 21:44 WBC RBC Hgb Hct MCV MCH MCHC RDW Plt Count MPV Neutrophils % Lymphocytes % Monocytes % Eosinophils % Basophils % VBG pH POC VBG pCO2 POC VBG pO2 Mixed VBG HCO3 Sodium 139 Potassium 3.3 L D Chloride 104 D Carbon Dioxide 26 D Anion Gap 9 BUN 14 Creatinine 0.5 L D POC Glucometer 81.85394 170.58006 Random Glucose 68 L D Calcium 8.3 L Phosphorus Magnesium Acetone, Qual Positive small 1+ H 10/04/16 10/05/16 10/05/16 22:58 02:00 05:20 WBC 6.1 RBC 4.06 Hgb 12.5 D Hct 37.6 MCV 92.7 MCH 30.8 MCHC 33.2 RDW 13.9 Plt Count 148 D MPV 9.5 Neutrophils % 60.9 D Lymphocytes % 28.0 D Monocytes % 9.3 D Eosinophils % 1.3 D Basophils % 0.5 VBG pH POC VBG pCO2 POC VBG pO2 Mixed VBG HCO3 Sodium Potassium Chloride Carbon Dioxide Anion Gap BUN Creatinine POC Glucometer 141.25529 151.22355 Random Glucose Calcium Phosphorus Magnesium Acetone, Qual 10/05/16 10/05/16 10/05/16 05:20 06:27 09:37 WBC RBC Hgb Hct MCV MCH MCHC RDW Plt Count MPV Neutrophils % Lymphocytes % Monocytes % Eosinophils % Basophils % VBG pH POC VBG pCO2 POC VBG pO2 Mixed VBG HCO3 Sodium 140 Potassium 4.2 D Chloride 105 Carbon Dioxide 28 Anion Gap 7 L BUN 17 D Creatinine 0.6 POC Glucometer 173.10945 148.64814 Random Glucose 183 H D Calcium 8.3 L Phosphorus 3.3 D Magnesium 2.0 Acetone, Qual Active Medications Generic Name Dose Route Start Last Admin Trade Name Freq PRN Reason Stop Dose Admin Chlorhexidine Gluconate 1 applic 10/04/16 22:00 10/04/16 22:04 Hibiclens For Decolonization - TP 1 applic HS WILEY Administration Hydromorphone HCl 1 mg 10/05/16 14:01 10/05/16 14:17 Dilaudid Injection - IVPUSH 1 mg Q4H PRN Administration PAIN Insulin Aspart 1 vial 10/05/16 16:30 Novolog Vial Sliding Scale - SQ ACHS [facility] Protocol Insulin Detemir 30 units 10/05/16 12:45 10/05/16 12:45 Levemir Vial SQ 30 units DAILY@0700 WILEY Administration Mupirocin 1 applic 10/04/16 22:00 10/05/16 10:37 Bactroban Ointment (For Decolonization) - NS 10/09/16 21:59 1 applic BID WILEY Administration ASSESSMENT/PLAN: Assessment/Plan: 31 y/o female with a PMHx of DM, depression and asthma presents with right knee pain s/p fall at home yesterday -Patient transferred to floor. - To be seen by Ortho - Blood sugar level controlled with home med Rx regimen Visit type - Emergency Visit Emergency Visit: No - New Patient This patient is new to me today: Yes Date on this admission: 10/05/16 - Critical Care Critical Care patient: Yes Total Critical Care Time (in minutes): 15
[2016-10-05] MEDS ORDERED: INSULIN SLIDING SCALE (NOVOLOG) 1 VIAL SQ SCH (16:30)
[2016-10-05] MEDS ORDERED: oxyCODONE HCL 5 MG TABLET PO PRN (19:10)
[2016-10-05] MEDS ORDERED: ACETAMINOPHEN 325 MG TABLET (FP) PO PRN (19:10)
[2016-10-05] MEDS ORDERED: CHLORHEXIDINE GLUCONATE 4% CLEANSER FOR DECOLONIZATION TP SCH (22:00)
[2016-10-06] MEDS ORDERED: ACETAMINOPHEN 325 MG TABLET (FP) PO PRN (01:22)
[2016-10-06] MEDS: oxyCODONE HCL 5 MG TABLET PO PRN ×3 (02:14→12:01)
[2016-10-06] MEDS: INSULIN SLIDING SCALE (NOVOLOG) 1 VIAL SQ SCH ×2 (06:35→11:55)
[2016-10-06] MEDS ORDERED: INSULIN (NOVOLOG) ASPART 100 UNITS/ML 10ML VIAL ONE ×2 (06:40→11:10)
[2016-10-06] MEDS ORDERED: INSULIN DETEMIR 100 UNITS/ML MDV SQ SCH (07:00)
[2016-10-06 08:24] VITALS: BP 107/69; PULSE 79; TEMP 98
[2016-10-06 08:34] LABS: BASOPHIL 0.7 % (0-2.0); EOSINOPHIL 1.8 % (0-4.5); MCH 30.7 pg (25.7-33.7); MEAN PLT VOLUME 9.1 fl (7.5-11.1); PLATELET COUNT 131 K/MM3 (134-434); RDW 13.6 % (11.6-15.6); WHITE BLOOD COUNT 4.1 K/mm3 (4.0-10.0)
[2016-10-06 08:58] LABS: ALBUMIN 2.8 g/dl (3.4-5.0); ALK PHOS 125 U/L (45-117); ANION GAP 8 (8-16); BILIRUBIN,TOTAL 0.3 mg/dL (0.2-1.0); CALCIUM 8.3 mg/dL (8.5-10.1); CO2 28 mmol/L (21-32); CREATININE 0.5 mg/dL (0.55-1.02); GLUCOSE,RANDOM 175 mg/dL (74-106); SGOT/AST 29 U/L (15-37); SGPT/ALT 42 U/L (12-78); TOT PROT 5.5 g/dl (6.4-8.2)
[2016-10-06] MEDS: MUPIROCIN 2% TOPICAL OINTMENT FOR DECOLONIZATION NS SCH (09:58)
--- NOTE | 2016-10-06 10:46 | DS ---
Physical Exam: SUBJECTIVE: Patient seen and examined at the bedside. States her pain is controlled with oxycodone. OBJECTIVE: Discharge today with close follow up with Ortho within 1 week, patient states she will make an appointment Shower chair prescription given Vital Signs Period Temp Pulse Resp BP Sys/Jaramillo Pulse Ox Last 24 Hr 97.2 F-98.5 F 70-86 16-20 107-144/69-92 99-100 PHYSICAL EXAM GENERAL: Awake, alert, and fully oriented, in no acute distress. HEAD: Normal with no signs of trauma. EYES: Pupils equal, round and reactive to light, extraocular movements intact, sclera anicteric, conjunctiva clear. No lid lag. EARS, NOSE, THROAT: Ears normal, nares patent, oropharynx clear without exudates. Moist mucous membranes. NECK: Normal range of motion, supple without lymphadenopathy, JVD, or masses. HEART: Regular rate and rhythm, normal S1 and S2 without murmur, rub or gallop. ABDOMEN: Soft, nontender, not distended, normoactive bowel sounds, no guarding, no rebound, no masses. No hepatomegaly or splenomegaly. LABS Laboratory Results - last 24 hr 10/05/16 10/05/16 10/06/16 16:32 20:42 05:34 WBC RBC Hgb Hct MCV MCH MCHC RDW Plt Count MPV Neutrophils % Lymphocytes % Monocytes % Eosinophils % Basophils % Sodium Potassium Chloride Carbon Dioxide Anion Gap BUN Creatinine Creat Clearance w eGFR POC Glucometer 138.55602 165 215 Random Glucose Calcium Total Bilirubin AST ALT Alkaline Phosphatase Total Protein Albumin 10/06/16 10/06/16 07:50 07:50 WBC 4.1 D RBC 4.05 Hgb 12.4 Hct 37.6 MCV 93.0 MCH 30.7 MCHC 33.0 RDW 13.6 Plt Count 131 L MPV 9.1 Neutrophils % 53.0 Lymphocytes % 35.8 D Monocytes % 8.7 Eosinophils % 1.8 Basophils % 0.7 Sodium 139 Potassium 3.7 Chloride 103 Carbon Dioxide 28 Anion Gap 8 BUN 16 Creatinine 0.5 L Creat Clearance w eGFR > 60 POC Glucometer Random Glucose 175 H Calcium 8.3 L Total Bilirubin 0.3 AST 29 ALT 42 Alkaline Phosphatase 125 H D Total Protein 5.5 L Albumin 2.8 L HOSPITAL COURSE: Date of Admission:10/04/16 Date of Discharge: 10/06/16 ASSESSMENT/PLAN: Patient is a 31 year old female with a significant past medical history of diabetes, depression and asthma. She presented to the ED on 10/04/2016 with diabetec ketoacidosis and right fracture of tibia s/p fall at home. Imaging: Right knee x-ray images demonstrating a large effusion. No evidence of definite fracture/dislocation. Possible tibial spine fracture. Endocrine: DKA - resolved A/P: s/p insulin drip, anion gap now closed On Levemir 30 units daily, novolog sliding scale Monitor bgms ac/hs at home Muscular/skeletal: A/P: Right knee pain, possible tibial spine fracture s/p fall - acute/needs outpatient follow up A/P: On a knee immobilzer, ice, elevation and pain management Seen by ortho, notes reviewed, likely internal derangement of the knee w/ meniscus tear and/or ligamentous injury Follow up in [address] Ross outpatient for repeat exam and MRI Remain with NWB in the knee immobilizer Shower chair, fall precautions Crutches provided Prophylaxis: DVT: nwb, no evidence of fracture/dislocation/deferred starting on anticoag GI: deferred PT for crutches, NWB status Discharge today. Minutes to complete discharge: 60 Discharge Summary Reason For Visit: DIABETIC KETOACIDOSIS/FRACTURE OF TIBIA Current Active Problems Diabetic ketoacidosis associated with type 1 diabetes mellitus (Acute) Tibia fracture (Acute) Condition: Stable - Instructions Diet, Activity, Other Instructions: Mrs. Caro Please follow up with orthopedics within 1 week as directed. Please remain NWB in the knee immobilizer -Follow up in [address] Leong out-patient for repeat exam and possible MRI Pain medications as needed with a stool softner. Please monitor your blood sugars at home. Please use shower chair (script given). Please call me with any questions you may have. [facility] @ [facility] [phone] Referrals: Kyler Leong MD [Staff Physician] - Amanda Beckman MD [Primary Care Provider] - Disposition: HOME - Home Medications Comprehensive Discharge Medication List: Ambulatory Orders Insulin Sliding Scale [Novolog Vial Sliding Scale -] 0 units SQ TIDAC PRN Duloxetine HCl [Cymbalta -] 30 mg PO DAILY #30 cap 09/20/16 Insulin (Levemir) [Levemir Flexpen -] 30 units SQ DAILY 10/04/16 Acetaminophen [Tylenol .Regular Strength -] 650 mg PO Q4H PRN #0 tablet Acetaminophen [Tylenol .Regular Strength -] 650 mg PO Q6H PRN #0 tablet Oxycodone HCl [Roxicodone -] 10 mg PO Q4H PRN #20 tablet MDD 6 doses 10/06/16 This patient is new to me today: No Emergency Visit: Yes ED Registration Date: 10/04/16 Care time: The patient presented to the Emergency Department on the above date and was hospitalized for further evaluation of their emergent condition. Critical Care patient: No - Discharge Referral Referred to [facility] No
== END 2016-10-06 14:16 | disposition home or self-care (01) | DRG 420 ==
LOC: JERFT 13:23 → JER 13:23 → JERBED 17:59 → JICU 21:32 → J6S 10-05 17:25
PROVIDERS: ADMIT Internal Medicine; ATTEND Nurse Practitioner Family
PROC: 2W3LXYZ Immobilization of Right Lower Extremity using Other Device (ICD-10-PCS; principal; 2016-10-04)
DX: E10.10 Type 1 diabetes mellitus with ketoacidosis without coma (principal); S82.114A Nondisplaced fracture of right tibial spine, initial encounter for closed fracture; X50.1XXA Overexertion from prolonged static or awkward postures, initial encounter; Y93.89 Activity, other specified; Y92.038 Other place in apartment as the place of occurrence of the external cause; Y99.8 Other external cause status; F32.9 Major depressive disorder, single episode, unspecified; J45.909 Unspecified asthma, uncomplicated; Z87.891 Personal history of nicotine dependence; Z96.41 Presence of insulin pump (external) (internal); F12.10 Cannabis abuse, uncomplicated
CPT/HCPCS: 36415; 71010-TC; 73562-TC-RT; 80048; 80053; 81003; 82009; 82803; 83735; 84100; 84703; 85025; 93005; 93010; 97116-GP; 97161-GP; 99285-25

== ENCOUNTER 2017-01-21 11:34 | Emergency (ER) | payer OTHER ==
[2017-01-21 11:38] VITALS: BP 108/68; PULSE 100; TEMP 97.8; BMI 25.7
[2017-01-21] MEDS ORDERED: ALBUTEROL SO4 2.5/IPRATROPIUM 0.5 INH SOL 3 ML VIAL.NEB. NEB ONE ×2 (12:03→12:13)
--- NOTE | 2017-01-21 12:08 | PDOC ---
History of Present Illness - General Chief Complaint: Cold Symptoms Stated Complaint: BODYACHE, WEAKNESS Time Seen by Provider: 01/21/17 11:47 History Source: Patient Exam Limitations: No Limitations - History of Present Illness Initial Comments: 01/21/17 12:04 31 yr female with cough sore throat nasal congestion for one week. no fever no abd pain no back pain or urinary complaints. Timing/Duration: reports: constant Severity: reports: mild Past History - Past Medical History Allergies/Adverse Reactions: Allergies Allergy/AdvReac Type Severity Reaction Status Date / Time No Known Allergies Allergy Verified 01/21/17 11:38 Home Medications: Ambulatory Orders Insulin Sliding Scale [Novolog Vial Sliding Scale -] 0 units SQ TIDAC PRN Duloxetine HCl [Cymbalta -] 30 mg PO DAILY #30 cap 09/20/16 Insulin (Levemir) [Levemir Flexpen -] 30 units SQ DAILY 10/04/16 Acetaminophen [Tylenol .Regular Strength -] 650 mg PO Q4H PRN #0 tablet Acetaminophen [Tylenol .Regular Strength -] 650 mg PO Q6H PRN #0 tablet Oxycodone HCl [Roxicodone -] 10 mg PO Q4H PRN #20 tablet MDD 6 doses 10/06/16 Azithromycin [Zithromax 250mg Tablets -] 250 mg PO UTDICT #6 tab 01/21/17 Fluticasone Prop 0.05% Nasal [Flonase -] 1 - 2 spray NS DAILY #1 spray.pump Anemia: No Asthma: Yes (stable) Cancer: No Cardiac Disorders: No CVA: No COPD: No CHF: No Dementia: No Diabetes: Yes (TYPE 1) GI Disorders: No Disorders: No HTN: No Hypercholesterolemia: No Liver Disease: No Seizures: No Thyroid Disease: No - Surgical History Abdominal Surgery: No Appendectomy: No Cardiac Surgery: No Cholecystectomy: No Gastric Stapling: No GI Surgery: No Lung Surgery: No Neurologic Surgery: No Orthopedic Surgery: No - Reproductive History (#): 11 Para: 4 Therapeutic (s) & number: Yes (4) Spontaneous : 2 - Immunization History Td Vaccination: Yes Immunization Up to Date: Yes - Suicide/Smoking/Psychosocial Hx Smoking Status: No Smoking History: Never smoked Years of Tobacco Use: 4 Have you smoked in the past 12 months: Yes Number of Cigarettes Smoked Daily: 1 Cigars Per Day: 0 'Breaking Loose' booklet given: 04/14/13 Hx Alcohol Use: No Drug/Substance Use Hx: No Substance Use Type: None Respiratory Specific PMHX - Complaint Specific PMHX Angina: No Bronchitis: No Pneumonia: No Pulmonary Embolus: No TB (Tuberculosis): No Review of Systems - Review of Systems Able to Perform ROS?: Yes Is the patient limited Maltese proficient: No Constitutional: No: Symptoms Reported HEENTM: Yes: Symptoms Reported Respiratory: Yes: Symptoms reported *Physical Exam - Vital Signs Last Vital Signs Temp Pulse Resp BP Pulse Ox 97.8 F 100 H 20 108/68 96 01/21/17 11:35 01/21/17 11:35 01/21/17 11:35 01/21/17 11:35 01/21/17 11:35 - Physical Exam General Appearance: Yes: Nourished, Appropriately Dressed HEENT: positive: EOMI, NIKI, Pharynx Normal, Nasal Congestion Neck: positive: Supple. negative: Tender, Lymphadenopathy (R), Lymphadenopathy (L) Respiratory/Chest: positive: Lungs Clear, Normal Breath Sounds. negative: Chest Tender, Crackles, Rales, Rhonchi, Stridor, Wheezing Cardiovascular: positive: Regular Rhythm, Regular Rate Gastrointestinal/Abdominal: positive: Normal Bowel Sounds Musculoskeletal: positive: Normal Inspection Extremity: positive: Normal Capillary Refill, Normal Inspection, Normal Range of Motion Integumentary: positive: Normal Color, Dry, Warm Neurologic: positive: Alert, Normal Mood/Affect, Normal Response, Motor Strength 5/5 Medical Decision Making - Medical Decision Making 01/21/17 12:06 cc: cough sore throat, nasal congestion, dry mucous membranes history of asthma ran out of inhaler no wheezing has some mild SOB and tightness with cough will give duoneb, rapid strep, chest xray pt is non toxic no history of intubations *DC/Admit/Observation/Transfer Diagnosis at time of Disposition: Upper respiratory infection Qualifiers: URI type: unspecified URI Qualified Code(s): J06.9 - Acute upper respiratory infection, unspecified - Discharge Dispostion Disposition: HOME Condition at time of disposition: Good - Prescriptions Prescriptions: Azithromycin [Zithromax 250mg Tablets -] 250 mg PO UTDICT #6 tab Fluticasone Prop 0.05% Nasal [Flonase -] 1 - 2 spray NS DAILY #1 spray.pump - Referrals Referrals: Amanda Beckman MD [Primary Care Provider] - - Patient Instructions Additional Instructions: drink pleanty of fluids to stay hydrated increase your vitamin C and Zinc intake use flonase nasal spray as directed once a day take the Zpack for 5 days follow with your doctor if any worsening symptoms Return to ER if any worsening symptoms - Post Discharge Activity
== END 2017-01-21 13:11 | disposition home or self-care (01) ==
LOC: JERFT 11:34
PROC: 3E0F7GC Introduction of Other Therapeutic Substance into Respiratory Tract, Via Natural or Artificial Opening (ICD-10-PCS; principal; 2017-01-21)
DX: J06.9 Acute upper respiratory infection, unspecified (principal); E10.9 Type 1 diabetes mellitus without complications; Z79.4 Long term (current) use of insulin
CPT/HCPCS: 71020-TC; 84703; 87070; 87430; 94642; 99281-25

== ENCOUNTER 2017-04-05 21:50 | Emergency (ER) | payer OTHER ==
[2017-04-05 21:59] VITALS: BP 121/81; PULSE 85; TEMP 98.4; BMI 29.2
--- NOTE | 2017-04-05 22:48 | PDOC ---
History of Present Illness - General History Source: Patient Exam Limitations: No Limitations - History of Present Illness Initial Comments: 04/06/17 01:43 The patient is a 32-year-old female, with a significant past medical history of diabetes mellitus and asthma, who presents to the ED complaining of 2 weeks of intermittent right upper pain. The patient describes the pain as sharp in sensation, radiating to her right shoulder and back, and exacerbated after eating. The patient reports nausea but no vomiting. The patient denies any fever, chills, diarrhea, or urinary symptoms. Allergies: NKDA Surgical History: None reported Social History: No reported tobacco, alcohol, or drug use. PCP: Dr. Amanda Carver <Kelsey Pacheco - Last Filed: 04/06/17 01:43> <Cleveland Lakhani - Last Filed: 04/06/17 02:17> - General Chief Complaint: Pain Stated Complaint: UPPER ABDOMINAL PAIN Time Seen by Provider: 04/05/17 22:27 Past History <Kelsey Pacheco - Last Filed: 04/06/17 01:43> - Past Medical History Anemia: No Asthma: Yes (stable) Cancer: No Cardiac Disorders: No CVA: No COPD: No CHF: No Dementia: No Diabetes: Yes (TYPE 1) GI Disorders: No Disorders: No HTN: No Hypercholesterolemia: No Liver Disease: No Seizures: No Thyroid Disease: No - Surgical History Abdominal Surgery: No Appendectomy: No Cardiac Surgery: No Cholecystectomy: No Gastric Stapling: No GI Surgery: No Lung Surgery: No Neurologic Surgery: No Orthopedic Surgery: No - Reproductive History (#): 11 Para: 4 Therapeutic (s) & number: Yes (4) Spontaneous : 2 - Immunization History Td Vaccination: Yes Immunization Up to Date: Yes - Suicide/Smoking/Psychosocial Hx Smoking Status: No Smoking History: Never smoked Years of Tobacco Use: 4 Have you smoked in the past 12 months: Yes Number of Cigarettes Smoked Daily: 1 Cigars Per Day: 0 Information on smoking cessation initiated: No 'Breaking Loose' booklet given: 04/14/13 Hx Alcohol Use: No Drug/Substance Use Hx: No Substance Use Type: None <Cleveland Lakhani - Last Filed: 04/06/17 02:17> - Past Medical History Allergies/Adverse Reactions: Allergies Allergy/AdvReac Type Severity Reaction Status Date / Time No Known Allergies Allergy Verified 04/05/17 21:56 Home Medications: Ambulatory Orders Insulin Sliding Scale [Novolog Vial Sliding Scale -] 0 units SQ TIDAC PRN Duloxetine HCl [Cymbalta -] 30 mg PO DAILY #30 cap 09/20/16 Insulin (Levemir) [Levemir Flexpen -] 30 units SQ DAILY 10/04/16 Acetaminophen [Tylenol .Regular Strength -] 650 mg PO Q4H PRN #0 tablet Acetaminophen [Tylenol .Regular Strength -] 650 mg PO Q6H PRN #0 tablet oxyCODONE HCL [Roxicodone -] 10 mg PO Q4H PRN #20 tablet MDD 6 doses 10/06/16 Albuterol Sulfate Inhaler - [Ventolin HFA Inhaler -] 2 inh PO Q4H #1 inh Azithromycin [Zithromax 250mg Tablets -] 250 mg PO UTDICT #6 tab 01/21/17 Fluticasone Prop 0.05% Nasal [Flonase -] 1 - 2 spray NS DAILY #1 spray.pump Abd/GI Specific PMHX - Complaint Specific PMHX Gall Bladder Disease: No GERD: No <Cleveland Lakhani - Last Filed: 04/06/17 02:17> Review of Systems - Review of Systems Able to Perform ROS?: Yes Comments:: 04/06/17 01:43 CONSTITUTIONAL: No reported: Fever, Chills, Diaphoresis, Generalized Weakness, Malaise, Loss of Appetite HEENT: No reported: Rhinorrhea, Nasal Congestion, Throat Pain, Throat Swelling, Difficulty Swallowing, Mouth Swelling, Ear Pain, Eye Pain, Visual Changes CARDIOVASCULAR: No reported: Chest Pain, Syncope, Palpitations, Irregular Heart Rate, Lightheadedness, Peripheral Edema RESPIRATORY: No reported: Cough, Shortness of Breath, SOB with Exertion, Orthopnea, Wheezing , Stridor, Hemoptysis GASTROINTESTINAL: Reported: Abdominal Pain, Nausea No reported: Abdominal Distension, Vomiting, Diarrhea, Constipation, Melena, Hematochezia GENITOURINARY: No reported: Dysuria, Frequency, Urgency, Hesitancy, Flank Pain, Genital Pain MUSCULOSKELETAL: Reported: Right-sided Back Pain, Right Shoulder Pain No reported: Arthralgia, Joint Swelling, Neck Pain SKIN: No reported: Rash, Itching, Pallor HEMEATOLOGIC/IMMUNOLOGIC: No reported: Easy Bleeding, Easy Bruising, Lymphadenopathy, Frequent infections ENDOCRINE: No reported: Unexplained Weight Gain, Unexplained Weight Loss, Heat Intolerance , Cold Intolerance NEUROLOGIC: No reported: Headache, Focal Weakness, Paresthesias, Vertigo, Lightheadedness, Unsteady Gait, Seizure, Mental Status Changes, Incontinence PSYCHIATRIC: No reported: Anxiety, Depression <Kelsey Pacheco - Last Filed: 04/06/17 01:43> *Physical Exam - Vital Signs Last Vital Signs Temp Pulse Resp BP Pulse Ox 98.4 F 85 18 121/81 98 04/05/17 21:57 04/05/17 21:57 04/05/17 21:57 04/05/17 21:57 04/05/17 21:57 - Physical Exam Comments: 04/06/17 01:44 GENERAL: The patient is awake, alert, and fully oriented, Nontoxic - in no acute distress. HEAD: Normocephalic, atraumatic. EYES: extraocular movements intact, sclera anicteric, conjunctiva clear. ENT: Normal voice, Moist mucous membranes. NECK: Normal range of motion, supple LUNGS: Breath sounds equal, clear to auscultation bilaterally. No wheezes, no rhonchi, no rales. HEART: Regular rate and rhythm, without murmur, rub or gallop. ABDOMEN: (+)very mild Right upper quadrant tenderness. Soft. No guarding, no rebound.No CVA tenderness EXTREMITIES: Normal range of motion, no edema. NEUROLOGICAL: No facial assymetry, Normal speech, PSYCH: Normal mood, normal affect. SKIN: Warm, Dry, normal turgor <JuniorKelsey - Last Filed: 04/06/17 01:43> - Vital Signs Last Vital Signs Temp Pulse Resp BP Pulse Ox 98.4 F 85 18 121/81 98 04/05/17 21:57 04/05/17 21:57 04/05/17 21:57 04/05/17 21:57 04/05/17 21:57 <Cleveland Lakhani - Last Filed: 04/06/17 02:17> ED Treatment Course - LABORATORY CBC & Chemistry Diagram: 04/05/17 23:00 04/05/17 23:00 - ADDITIONAL ORDERS Additional order review: Laboratory Results 04/05/17 04/05/17 04/05/17 23:00 23:00 23:00 Sodium 138 Potassium 3.7 Chloride 101 Carbon Dioxide 20 L Anion Gap 17 H BUN 18 Creatinine 0.9 Creat Clearance w eGFR > 60 Random Glucose 389 H* Calcium 9.1 Total Bilirubin 0.3 AST 29 ALT 48 Alkaline Phosphatase 171 H Total Protein 6.5 Albumin 3.3 L Lipase 221 Urine Color Urine Appearance Urine pH Ur Specific [place] Urine Protein Urine Glucose (UA) Urine Ketones Urine Blood Urine Nitrite Urine Bilirubin Urine Urobilinogen Ur Leukocyte Esterase Urine HCG, Qual Acetone, Qual Negative L 04/05/17 22:45 Sodium Potassium Chloride Carbon Dioxide Anion Gap BUN Creatinine Creat Clearance w eGFR Random Glucose Calcium Total Bilirubin AST ALT Alkaline Phosphatase Total Protein Albumin Lipase Urine Color Colorless Urine Appearance Clear Urine pH 6.0 Ur Specific [place] 1.028 Urine Protein Negative Urine Glucose (UA) 3+ H Urine Ketones Negative Urine Blood Negative Urine Nitrite Negative Urine Bilirubin Negative Urine Urobilinogen Negative Ur Leukocyte Esterase Negative Urine HCG, Qual Negative Acetone, Qual 04/05/17 23:00 RBC 4.27 MCV 91.2 MCHC 34.1 RDW 13.7 MPV 9.2 Neutrophils % 59.5 Lymphocytes % 31.0 Monocytes % 7.2 Eosinophils % 1.7 Basophils % 0.6 - Medications Given in the ED: ED Medications Discontinued Medications Generic Name Dose Route Start Last Admin Trade Name Freq PRN Reason Stop Dose Admin Ketorolac Tromethamine 30 mg 04/05/17 23:25 04/05/17 23:27 Toradol Injection - IM 04/05/17 23:26 30 mg ONCE ONE Administration <Kelsey Pacheco - Last Filed: 04/06/17 01:43> - LABORATORY CBC & Chemistry Diagram: 04/05/17 23:00 04/05/17 23:00 <Cleveland Lakhani - Last Filed: 04/06/17 02:17> Medical Decision Making - Medical Decision Making 04/05/17 23:25 32y F hx of dm, asthma presents with complaint of 2 weeks of intermittent RUQ pain that worsens after she eats. pt denies any fever/chills, +nausea without vomiting, no diarrhea or urinary sypmtoms. on exam pt has mild RUQ tenderness w/o reboundguarding suspect gall stones will ck RUQ US will give toradol for pain will ck basic labs to r/o anemia, metabolic derrangement, pancreatitis A portion of this note was documented by scribe services under my direction. I have reviewed the details of the note, within reason, and agree with the documentation with the following case summary and management plan written by me 04/06/17 02:14 pts labs reivewd pted noted hyperglycemic serum acetones negative pts US shows lfatty liver, +gallblader polp pt feeling improved will dc with pmd fu return precautions were discusesd I discussed the physical exam findings, ancillary test results and final diagnoses with the patient. I answered all of the patient's questions. The patient was satisfied with the care received and felt comfortable with the discharge plan and treatment plan. The patient will call their primary care physician within 24 hours to arrange follow-up and will return to the Emergency Department with any new, persistent or worsening symptoms. <Cleveland Lakhani - Last Filed: 04/06/17 02:17> *DC/Admit/Observation/Transfer - Attestations Scribe Attestion: 04/06/17 01:44 Documentation prepared by Kelsey Pacheco, acting as medical oncologist for Cleveland Lakhani MD. <Kelsey Pacheco - Last Filed: 04/06/17 01:43> - Discharge Dispostion Admit: No <Cleveland Lakhani - Last Filed: 04/06/17 02:17> Diagnosis at time of Disposition: Hyperglycemia Abdominal pain Qualifiers: Abdominal location: right upper quadrant Qualified Code(s): R10.11 - Right upper quadrant pain - Discharge Dispostion Disposition: HOME Condition at time of disposition: Improved - Referrals Referrals: Amanda Beckman MD [Primary Care Provider] - Richard Childers MD [Staff Physician] - - Patient Instructions Printed Discharge Instructions: DI for Abdominal Pain-Adult Additional Instructions: Return to the emergency department immediately with ANY new, persistent or worsening symptoms including worsening abdominal pain, fevers, inability to tolerate oral intake, chest pain, shortness of breath or any other concerns. Stay well hydrated. You MUST call and follow up with your doctor tomorrow. Your emergency department visit is not complete without a followup with your doctor for reevaluation. Please make sure your doctor reviews the results of your emergency evaluation. Your blood sugar was also elevated please use your diabetes medications as prescribed Print Language: YAKUT - Post Discharge Activity
[2017-04-05 22:53] LABS: HCG,QUALITATIVE URINE NEGATIVE
[2017-04-05 22:57] LABS: URINE APPEARANCE CLEAR; URINE BILIRUBIN NEGATIVE (NEGATIVE); URINE BLOOD NEGATIVE (NEGATIVE); URINE COLOR COLORLESS; URINE GLUCOSE (UA) 3+ (NEGATIVE); URINE KETONE NEGATIVE (NEGATIVE); URINE LEUK ESTERASE NEGATIVE (NEGATIVE); URINE NITRITE NEGATIVE (NEGATIVE); URINE PROTEIN NEGATIVE (NEGATIVE); URINE UROBILINOGEN NEGATIVE mg/dL (0.2-1.0)
[2017-04-05 23:04] LABS: BASO % 0.6 % (0-2.0); EOS % 1.7 % (0-4.5); HEMOGLOBIN 13.3 GM/dL (10.7-15.3); MCH 31.1 pg (25.7-33.7); MCHC 34.1 g/dl (32.0-36.0); MEAN CELL VOLUME 91.2 fl (80-96); MEAN PLT VOLUME 9.2 fl (7.5-11.1); MONO % 7.2 % (3.8-10.2); NEUT % 59.5 % (42.8-82.8); PLATELET COUNT 183 K/MM3 (134-434); RBC 4.27 M/mm3 (3.60-5.2); RDW 13.7 % (11.6-15.6); WHITE BLOOD COUNT 6.1 K/mm3 (4.0-10.0)
[2017-04-05] MEDS ORDERED: KETOROLAC TROMETHAMINE 60 MG/2 ML VIAL IM ONE (23:25)
[2017-04-05 23:31] LABS: ALBUMIN 3.3 g/dl (3.4-5.0); ALK PHOS 171 U/L (45-117); ANION GAP 17 (8-16); BILIRUBIN,TOTAL 0.3 mg/dL (0.2-1.0); BLOOD UREA NITROGEN 18 mg/dL (7-18); CALCIUM 9.1 mg/dL (8.5-10.1); CHLORIDE 101 mmol/L (98-107); CO2 20 mmol/L (21-32); CREATININE 0.9 mg/dL (0.55-1.02); POTASSIUM 3.7 mmol/L (3.5-5.1); SGOT/AST 29 U/L (15-37); SGPT/ALT 48 U/L (12-78); SODIUM 138 mmol/L (136-145); TOT PROT 6.5 g/dl (6.4-8.2)
[2017-04-05 23:32] LABS: GLUCOSE,RANDOM 389 mg/dL (74-106)
== END 2017-04-06 02:31 | disposition home or self-care (01) ==
LOC: JER 21:50
PROC: 3E033NZ Introduction of Analgesics, Hypnotics, Sedatives into Peripheral Vein, Percutaneous Approach (ICD-10-PCS; principal; 2017-04-05)
DX: E10.65 Type 1 diabetes mellitus with hyperglycemia (principal); Z79.4 Long term (current) use of insulin
CPT/HCPCS: 36415; 76705-TC; 80053; 81003; 82009; 83690; 84703; 85025; 99283-25

== ENCOUNTER 2017-08-24 20:24 | Emergency (ER) | payer OTHER ==
[2017-08-24 20:34] VITALS: BP 155/73; PULSE 80; TEMP 98.6; BMI 32.9
--- NOTE | 2017-08-24 22:26 | PDOC ---
History of Present Illness - General Chief Complaint: Edema Stated Complaint: EDMA Time Seen by Provider: 08/24/17 21:04 - History of Present Illness Initial Comments: 08/24/17 22:26 he patient is a 32-year-old female, with a significant past medical history of diabetes mellitus and asthma, who presents to the ED complaining of swollen ankle and URQ abdominal pain today. [place] weak earlier today found her blood glucose was 40. Took 3 glucose tablets and came to the ER. No history of gallstones. 08/25/17 00:16 Past History - Past Medical History Allergies/Adverse Reactions: Allergies Allergy/AdvReac Type Severity Reaction Status Date / Time No Known Allergies Allergy Verified 08/24/17 20:30 Home Medications: Ambulatory Orders Insulin Sliding Scale [Novolog Vial Sliding Scale -] 0 units SQ TIDAC PRN Duloxetine HCl [Cymbalta -] 30 mg PO DAILY #30 cap 09/20/16 Insulin (Levemir) [Levemir Flexpen -] 30 units SQ DAILY 10/04/16 Acetaminophen [Tylenol .Regular Strength -] 650 mg PO Q4H PRN #0 tablet Acetaminophen [Tylenol .Regular Strength -] 650 mg PO Q6H PRN #0 tablet oxyCODONE HCL [Roxicodone -] 10 mg PO Q4H PRN #20 tablet MDD 6 doses 10/06/16 Albuterol Sulfate Inhaler - [Ventolin HFA Inhaler -] 2 inh PO Q4H #1 inh Azithromycin [Zithromax 250mg Tablets -] 250 mg PO UTDICT #6 tab 01/21/17 Fluticasone Prop 0.05% Nasal [Flonase -] 1 - 2 spray NS DAILY #1 spray.pump Anemia: No Asthma: Yes (stable) Cancer: No Cardiac Disorders: No CVA: No COPD: No CHF: No Dementia: No Diabetes: Yes (TYPE 1) GI Disorders: No Disorders: No HTN: No Hypercholesterolemia: No Liver Disease: No Seizures: No Thyroid Disease: No - Surgical History Abdominal Surgery: No Appendectomy: No Cardiac Surgery: No Cholecystectomy: No Gastric Stapling: No GI Surgery: No Lung Surgery: No Neurologic Surgery: No Orthopedic Surgery: No - Reproductive History (#): 11 Para: 4 Therapeutic (s) & number: Yes (4) Spontaneous : 2 - Immunization History Td Vaccination: Yes Immunization Up to Date: Yes - Suicide/Smoking/Psychosocial Hx Smoking Status: No Smoking History: Never smoked Years of Tobacco Use: 4 Have you smoked in the past 12 months: No Number of Cigarettes Smoked Daily: 1 Cigars Per Day: 0 Information on smoking cessation initiated: No 'Breaking Loose' booklet given: 04/14/13 Hx Alcohol Use: No Drug/Substance Use Hx: No Substance Use Type: None Review of Systems - Review of Systems Able to Perform ROS?: Yes Is the patient limited German proficient: No Constitutional: No: Symptoms Reported HEENTM: No: Symptoms Reported Respiratory: No: Symptoms reported Cardiac (ROS): No: Symptoms Reported ABD/GI: Yes: See HPI : No: Symptoms Reported Musculoskeletal: No: Symptoms Reported Integumentary: No: Symptoms Reported Neurological: No: Symptoms reported All Other Systems: Reviewed and Negative *Physical Exam - Vital Signs Last Vital Signs Temp Pulse Resp BP Pulse Ox 98.6 F 80 20 155/73 96 08/24/17 20:30 08/24/17 20:30 08/24/17 20:30 08/24/17 20:30 08/24/17 20:30 - Physical Exam General Appearance: Yes: Nourished, Appropriately Dressed. No: Apparent Distress HEENT: positive: EOMI, NIKI, Normal ENT Inspection Respiratory/Chest: positive: Lungs Clear, Normal Breath Sounds. negative: Chest Tender, Respiratory Distress Cardiovascular: positive: Regular Rhythm, Regular Rate, S1, S2 Gastrointestinal/Abdominal: positive: Normal Bowel Sounds, Flat, Soft. negative : Tender Musculoskeletal: positive: Normal Inspection. negative: CVA Tenderness Extremity: positive: Normal Capillary Refill, Normal Inspection, Normal Range of Motion Integumentary: positive: Normal Color, Dry, Warm Neurologic: positive: Fully Oriented, Alert, Normal Mood/Affect, Normal Response ED Treatment Course - LABORATORY CBC & Chemistry Diagram: 08/24/17 22:20 08/24/17 23:22 - RADIOLOGY Radiology Studies Ordered: Category Date Time Status CHEST X-RAY PORTABLE* [RAD] Stat Radiology 08/24/17 21:18 Taken Medical Decision Making - Medical Decision Making 08/25/17 00:17 basic labs, ekg, cxr 08/25/17 00:22 Bedside US negative for gallstones. WIll send official US of gallbladder, kidneys and Duplex 08/25/17 00:28 PAtient signedx out to Dr. Antony *DC/Admit/Observation/Transfer Diagnosis at time of Disposition: Dyspepsia - Referrals Referrals: Johnnie Cooney MD [Primary Care Provider] - - Patient Instructions - Post Discharge Activity
[2017-08-24 22:30] LABS: BASO % 0.6 % (0-2.0); EOS % 0.6 % (0-4.5); HEMATOCRIT 38.9 % (32.4-45.2); HEMOGLOBIN 13.3 GM/dL (10.7-15.3); LYMPH % 27.6 % (8-40); MCH 30.4 pg (25.7-33.7); MCHC 34.3 g/dl (32.0-36.0); MEAN CELL VOLUME 88.7 fl (80-96); MEAN PLT VOLUME 9.2 fl (7.5-11.1); NEUT % 63.2 % (42.8-82.8); PLATELET COUNT 179 K/MM3 (134-434); RBC 4.38 M/mm3 (3.60-5.2); RDW 13.9 % (11.6-15.6); WHITE BLOOD COUNT 5.4 K/mm3 (4.0-10.0)
--- NOTE | 2017-08-24 22:40 | PDOC ---
Attending Attestation - HPI HPI: 08/24/17 22:43 The patient is a 32 year old female, with a significant past medical history of DM and asthma, who presents to the emergency department via EMS with, low blood sugar and bilateral lower extremity swelling. Allergies: NKA Past surgical history: None reported. Social history: Nonsmoker. Denies EtOH use and recreational drug use. Primary Care Physician: Dr. Amanda Carver <Roderick Zarco - Last Filed: 08/24/17 22:44> - Resident Resident Name: Luis A Schneider - ED Attending Attestation I have performed the following: I have examined & evaluated the patient, The case was reviewed & discussed with the resident, I agree w/resident's findings & plan, Exceptions are as noted - Physicial Exam PE: 08/25/17 01:13 Patient is awake and alert, well-nourished, in no distress PERRLA, EOMI No scleral icterus mmm CTA RRR Abdomen is soft, nondistended, mild epigastric tenderness to deep palpation without guarding rebound; no CVA tenderness bilaterally + Minimal lower extremity edema mostly localized to the area surrounding the lateral malleolus bilaterally (more pronounced on the left) with bilateral calf tenderness to palpation, Homans negative bilaterally. - Medical Decision Making 08/25/17 01:15 32-year-old female with history of diabetes presents to the ER with epigastric pain that has worsened postprandially and lower extremity edema. No evidence of DVT is present on ultrasound. Right upper quadrant ultrasound also reveals no evidence of cholelithiasis or hydronephrosis. I do not suspect acute hepatitis or appendicitis at this time. We'll administer GI cocktail. Patient tolerating by mouth and symptom-free upon discharge with GI follow-up further investigation. <Donaldo Orellana - Last Filed: 08/25/17 01:15> Attestations - Attestations 08/24/17 22:45 Documentation prepared by Roderick Zarco, acting as medical laboratory assistant for Donaldo Orellana MD. <Roderick Zarco - Last Filed: 08/24/17 22:44>
[2017-08-24 23:26] LABS: URINE APPEARANCE CLEAR; URINE BILIRUBIN NEGATIVE (<2.0 mg/dL); URINE COLOR YELLOW; URINE GLUCOSE (UA) 1+ (NEGATIVE); URINE KETONE TRACE (NEGATIVE); URINE LEUK ESTERASE NEGATIVE (NEGATIVE); URINE NITRITE NEGATIVE (NEGATIVE); URINE PROTEIN NEGATIVE (NEGATIVE); URINE UROBILINOGEN NEGATIVE mg/dL (0.2-1.0)
[2017-08-24 23:34] LABS: HCG,QUALITATIVE URINE NEGATIVE
[2017-08-25 00:11] LABS: ANION GAP 8 (8-16); BILIRUBIN,TOTAL 0.2 mg/dL (0.2-1.0); BLOOD UREA NITROGEN 11 mg/dL (7-18); CALCIUM 8.2 mg/dL (8.5-10.1); CHLORIDE 107 mmol/L (98-107); CO2 28 mmol/L (21-32); CREATININE 0.5 mg/dL (0.55-1.02); GLUCOSE,RANDOM 156 mg/dL (74-106); POTASSIUM 3.8 mmol/L (3.5-5.1); SGOT/AST 49 U/L (15-37); SGPT/ALT 56 U/L (12-78); SODIUM 143 mmol/L (136-145); TOT PROT 5.5 g/dl (6.4-8.2)
[2017-08-25 00:12] LABS: ALK PHOS 103 U/L (45-117)
--- NOTE | 2017-08-25 00:53 | PDOC ---
*Physical Exam - Vital Signs Last Vital Signs Temp Pulse Resp BP Pulse Ox 98.6 F 80 20 155/73 96 08/24/17 20:30 08/24/17 20:30 08/24/17 20:30 08/24/17 20:30 08/24/17 20:30 ED Treatment Course - LABORATORY CBC & Chemistry Diagram: 08/24/17 22:20 08/24/17 23:22 - ADDITIONAL ORDERS Additional order review: Laboratory Results 08/24/17 08/24/17 08/24/17 23:22 22:47 22:20 Sodium 143 Cancelled Potassium 3.8 Cancelled Chloride 107 Cancelled Carbon Dioxide 28 Cancelled Anion Gap 8 Cancelled BUN 11 Cancelled Creatinine 0.5 L Cancelled Creat Clearance w eGFR > 60 Cancelled Random Glucose 156 H Cancelled Calcium 8.2 L Cancelled Total Bilirubin 0.2 Cancelled AST 49 H Cancelled ALT 56 Cancelled Alkaline Phosphatase 103 Cancelled Total Protein 5.5 L Cancelled Albumin 3.0 L Cancelled Urine Color Yellow Urine Appearance Clear Urine pH 5.0 Ur Specific [place] 1.027 Urine Protein Negative Urine Glucose (UA) 1+ H D Urine Ketones Trace H Urine Blood Negative Urine Nitrite Negative Urine Bilirubin Negative Urine Urobilinogen Negative Ur Leukocyte Esterase Negative Urine HCG, Qual Negative 08/24/17 22:20 RBC 4.38 MCV 88.7 MCHC 34.3 RDW 13.9 MPV 9.2 Neutrophils % 63.2 Lymphocytes % 27.6 Monocytes % 8.0 Eosinophils % 0.6 Basophils % 0.6 Medical Decision Making - Medical Decision Making 32 year old female presenting with abdominal pain and swelling. Ultrasounds negative for clots or GB stones. Will DC with pepcid prescriptions and GI follow up. 08/25/17 00:52 *DC/Admit/Observation/Transfer Diagnosis at time of Disposition: Dyspepsia - Prescriptions Prescriptions: Famotidine [Pepcid] 20 mg PO DAILY PRN #30 tablet PRN Reason: abdominal pain - Referrals Referrals: Johnnie Cooney MD [Primary Care Provider] - - Patient Instructions - Post Discharge Activity
--- NOTE | 2017-08-25 09:34 | EKG ---
Test Reason : Blood Pressure : / mmHG Vent. Rate : 080 BPM Atrial Rate : 080 BPM P-R Int : 166 ms QRS Dur : 088 ms QT Int : 420 ms P-R-T Axes : 056 063 053 degrees QTc Int : 484 ms NORMAL SINUS RHYTHM PROLONGED QT ABNORMAL ECG WHEN COMPARED WITH ECG OF 04-OCT-2016 18:12, NO SIGNIFICANT CHANGE WAS FOUND Confirmed by SHARON ORTIZ MD ([id number]) on 08/25/2017 9:34:22 AM Referred By: Confirmed By:SHARON ORTIZ MD
== END 2017-08-25 01:01 | disposition home or self-care (01) ==
LOC: JER 20:24
DX: R10.13 Epigastric pain (principal); E10.649 Type 1 diabetes mellitus with hypoglycemia without coma; Z79.4 Long term (current) use of insulin; Z87.09 Personal history of other diseases of the respiratory system
CPT/HCPCS: 36415; 71045-TC-FY; 76700-TC; 80053; 81003; 84703; 85025; 93005; 93010; 93970-TC; 99281-25

== ENCOUNTER 2017-11-11 16:27 | Emergency (ER) | payer OTHER ==
[2017-11-11 16:47] VITALS: BMI 29.2
[2017-11-11] MEDS ORDERED: KETOROLAC TROMETHAMINE 30 MG/1 ML VIAL IM ONE (17:22)
[2017-11-11] MEDS ORDERED: METOCLOPRAMIDE HCL INJECTION 10 MG/2 ML VIAL IVPB ONE (17:22)
[2017-11-11 18:01] LABS: BASO % 0.6 % (0-2.0); EOS % 1.1 % (0-4.5); HEMOGLOBIN 13.2 GM/dL (10.7-15.3); LYMPH % 28.5 % (8-40); MCH 30.7 pg (25.7-33.7); MCHC 33.9 g/dl (32.0-36.0); MEAN CELL VOLUME 90.4 fl (80-96); MEAN PLT VOLUME 9.3 fl (7.5-11.1); MONO % 5.4 % (3.8-10.2); NEUT % 64.4 % (42.8-82.8); PLATELET COUNT 175 K/MM3 (134-434); RBC 4.32 M/mm3 (3.60-5.2); RDW 13.1 % (11.6-15.6); WHITE BLOOD COUNT 4.7 K/mm3 (4.0-10.0)
[2017-11-11] MEDS ORDERED: METOCLOPRAMIDE HCL INJECTION 10 MG/2 ML VIAL ONE (18:15)
[2017-11-11] MEDS ORDERED: KETOROLAC TROMETHAMINE 30 MG/1 ML VIAL ONE (18:15)
[2017-11-11 18:31] LABS: ALBUMIN 2.9 g/dl (3.4-5.0); ALK PHOS 149 U/L (45-117); ANION GAP 7 MMOL/L (8-16); BILIRUBIN,TOTAL 0.2 mg/dL (0.2-1); BLOOD UREA NITROGEN 19 mg/dL (7-18); CALCIUM 8.5 mg/dL (8.5-10.1); CHLORIDE 104 mmol/L (98-107); CO2 25 mmol/L (21-32); CREATININE 0.5 mg/dL (0.55-1.3); GLUCOSE,RANDOM 156 mg/dL (74-106); POTASSIUM 4.3 mmol/L (3.5-5.1); SGOT/AST 221 U/L (15-37); SGPT/ALT 160 U/L (13-61); SODIUM 137 mmol/L (136-145); TOT PROT 5.9 g/dl (6.4-8.2)
[2017-11-11 18:32] LABS: URINE APPEARANCE CLEAR; URINE BILIRUBIN NEGATIVE (<2.0 mg/dL); URINE COLOR LTYELLOW; URINE GLUCOSE (UA) 3+ (NEGATIVE); URINE KETONE 1+ (NEGATIVE); URINE LEUK ESTERASE NEGATIVE (NEGATIVE); URINE NITRITE NEGATIVE (NEGATIVE); URINE PROTEIN NEGATIVE (NEGATIVE); URINE UROBILINOGEN NEGATIVE mg/dL (0.2-1.0)
--- NOTE | 2017-11-11 18:52 | PDOC ---
History of Present Illness - General Chief Complaint: Head/Neck problem Stated Complaint: facial tingling Time Seen by Provider: 11/11/17 17:10 History Source: Patient - History of Present Illness Timing/Duration: other (this am) Severity: moderate Past History - Past Medical History Allergies/Adverse Reactions: Allergies Allergy/AdvReac Type Severity Reaction Status Date / Time No Known Allergies Allergy Verified 11/11/17 16:30 Home Medications: Ambulatory Orders Insulin Sliding Scale [Novolog Vial Sliding Scale -] 0 units SQ TIDAC PRN Insulin (Levemir) [Levemir Flexpen -] 30 units SQ DAILY 10/04/16 Albuterol Sulfate Inhaler - [Ventolin HFA Inhaler -] 2 inh PO Q4H #1 inh Celecoxib 200 mg PO DAILY 11/11/17 Anemia: No Asthma: Yes (stable) Cancer: No Cardiac Disorders: No CVA: No COPD: No CHF: No Dementia: No Diabetes: Yes (TYPE 1) GI Disorders: No Disorders: No HTN: No Hypercholesterolemia: No Liver Disease: No Seizures: No Thyroid Disease: No - Surgical History Abdominal Surgery: No Appendectomy: No Cardiac Surgery: No Cholecystectomy: No Gastric Stapling: No GI Surgery: No Lung Surgery: No Neurologic Surgery: No Orthopedic Surgery: No - Reproductive History (#): 11 Para: 4 Therapeutic (s) & number: Yes (4) Spontaneous : 2 - Immunization History Td Vaccination: Yes Immunization Up to Date: Yes - Suicide/Smoking/Psychosocial Hx Smoking Status: No Smoking History: Never smoked Years of Tobacco Use: 4 Have you smoked in the past 12 months: Yes Number of Cigarettes Smoked Daily: 1 Cigars Per Day: 0 Information on smoking cessation initiated: No 'Breaking Loose' booklet given: 04/14/13 Hx Alcohol Use: No Drug/Substance Use Hx: No Substance Use Type: None Review of Systems - Review of Systems Constitutional: No: Fever HEENTM: No: Eye Pain, Blurred Vision ABD/GI: No: Nausea, Vomiting Neurological: Yes: Headache, Tingling. No: Numbness, Weakness *Physical Exam - Vital Signs Last Vital Signs Temp Pulse Resp BP Pulse Ox 98 F 96 H 16 116/70 97 11/11/17 16:27 11/11/17 16:27 11/11/17 16:27 11/11/17 16:27 11/11/17 16:27 - Physical Exam General Appearance: Yes: Appropriately Dressed. No: Apparent Distress HEENT: positive: Normal ENT Inspection, Normal Voice, TMs Normal, Pharynx Normal. negative: Scleral Icterus (R), Scleral Icterus (L) Neck: positive: Supple. 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 negative: Facial Droop, Numbness, Sensory Deficit ( facial movements symmetric, able to close eyes against resistantce and raise brows b/l) ED Treatment Course - LABORATORY CBC & Chemistry Diagram: 11/11/17 17:55 11/11/17 17:55 - ADDITIONAL ORDERS Additional order review: 11/11/17 17:55 RBC 4.32 MCV 90.4 MCHC 33.9 RDW 13.1 MPV 9.3 Neutrophils % 64.4 Lymphocytes % 28.5 Monocytes % 5.4 Eosinophils % 1.1 D Basophils % 0.6 Medical Decision Making - Medical Decision Making 11/11/17 18:26 32-year-old female, history of IDDM, here with facial pain. Per patient, developed L facial "discomfort"w/ ?tingling this am. Also c/o pressure to L ear. No ORDONEZ otherwise and no numbness to face, eye complaint, visual changes, HL , dizziness, n/v. No similar pain in the past. Patient states for the past several months she's had bilateral lower extremity swelling, left greater than right w/ pain also radiating to LUE. States she has been evaluated her PMD for her leg swelling and started on Celebrex, which has not relieved his symptoms. States she was seen at [facility] yesterday and had negative workup including dopplers of bilateral lower extremity. No chest pain, shortness of breath or palpitations at this time See exam Facial pain this am Etiology unclear at this time No e/o [place], TMJ or infection No trauma No h/o similar pain Exam unremarkable -pain control -labs -reassess 11/11/17 19:18 Patient signed out to Dr. Stern at this time 11/12/17 09:42 *DC/Admit/Observation/Transfer Diagnosis at time of Disposition: Facial discomfort, Transaminitis - Discharge Dispostion Disposition: HOME Condition at time of disposition: Stable - Referrals Referrals: Johnnie Cooney MD [Primary Care Provider] - - Patient Instructions Printed Discharge Instructions: DI for Acute Pain -- Adult, Liver Function Tests Additional Instructions: You were seen in the Emergency Department today for facial pain. Your ultrasound results were provided. Please review the handouts provided at discharge. Please keep your follow up appointment with your primary care provider tomorrow and bring your results with you. Return to the Emergency Room if you develop fevers/chills, worsening abdominal pain, vomiting, or any new/ concerning symptoms. - Post Discharge Activity
--- NOTE | 2017-11-11 19:08 | PDOC ---
*Physical Exam - Vital Signs Last Vital Signs Temp Pulse Resp BP Pulse Ox 98 F 96 H 16 116/70 98 11/11/17 16:27 11/11/17 16:27 11/11/17 16:27 11/11/17 16:27 11/11/17 18:57 - Physical Exam Comments: GENERAL: Awake, alert, and fully oriented, in no acute distress HEAD: No signs of trauma, normocephalic, atraumatic EYES: PERRL, EOMI, sclera anicteric, conjunctiva clear ENT: Hearing grossly normal, nares patent, oropharynx clear without exudates. Moist mucosa NECK: Normal ROM, supple LUNGS: No distress, speaks full sentences, clear to auscultation bilaterally HEART:Regular rate and rhythm, normal S1 and S2, no murmurs appreciated, peripheral pulses normal and equal bilaterally ABDOMEN: Soft, nontender, normoactive bowel sounds. No guarding, no rebound EXTREMITIES : Normal inspection, Normal range of motion, no edema. No clubbing or cyanosis NEUROLOGICAL: Cranial nerves II through XII grossly intact. Normal speech, normal gait, no focal sensorimotor deficits SKIN: Warm, Dry 11/11/17 21:22 ED Treatment Course - LABORATORY CBC & Chemistry Diagram: 11/11/17 17:55 11/11/17 17:55 - ADDITIONAL ORDERS Additional order review: Laboratory Results 11/11/17 11/11/17 11/11/17 18:00 17:55 17:55 Sodium 137 Potassium 4.3 Chloride 104 Carbon Dioxide 25 Anion Gap 7 L BUN 19 H Creatinine 0.5 L Creat Clearance w eGFR > 60 Random Glucose 156 H Calcium 8.5 Total Bilirubin 0.2 AST 221 H ALT 160 H Alkaline Phosphatase 149 H Total Protein 5.9 L Albumin 2.9 L Serum , Qual Negative Urine Color Ltyellow Urine Appearance Clear Urine pH 6.0 Ur Specific [place] 1.025 Urine Protein Negative Urine Glucose (UA) 3+ H D Urine Ketones 1+ H Urine Blood Negative Urine Nitrite Negative Urine Bilirubin Negative Urine Urobilinogen Negative Ur Leukocyte Esterase Negative 11/11/17 17:55 RBC 4.32 MCV 90.4 MCHC 33.9 RDW 13.1 MPV 9.3 Neutrophils % 64.4 Lymphocytes % 28.5 Monocytes % 5.4 Eosinophils % 1.1 D Basophils % 0.6 - Medications Given in the ED: ED Medications Discontinued Medications Generic Name Dose Route Start Last Admin Trade Name Star PRN Reason Stop Dose Admin Ketorolac Tromethamine 30 mg 11/11/17 17:22 11/11/17 18:05 Toradol Injection - IM 11/11/17 17:23 30 mg ONCE ONE Administration Metoclopramide HCl 10 mg 11/11/17 17:22 11/11/17 18:00 Reglan Injection - IVPB 11/11/17 17:23 10 mg ONCE ONE Administration Medical Decision Making - Medical Decision Making The patient is a 32F who present for evaluation of 'facial discomfort.' I have assumed care of the patient from LAURA Fonseca, who has discussed the clinical presentation, work-up, and ED course thus far. I have reviewed the patients medical record and ED course and agree with all aspects of care thus far. Patient is pending lab results for dispo. Patient has an appointment with her PCP tomorrow and her BLE swelling was investigated yesterday with a negative duplex Plan is for discharge if w/u is negative 11/11/17 19:05 Labs notable for transaminitis U/S notable evidence of fatty liver disease. No biliary dz, no hydronephrosis, no descrete lesions Results discussed w/ patient Plan for D/C. Patient has an appointment with her PCP tomorrow that she plans to keep. Will provide patient with results to give to her provider. Patient's pain resolved Plan discussed with patient who verbalized understanding and is in agreement Dispo: Home 11/11/17 19:11 *DC/Admit/Observation/Transfer Diagnosis at time of Disposition: Facial discomfort, Transaminitis - Discharge Dispostion Disposition: HOME Condition at time of disposition: Stable Decision to Admit order: No - Referrals Referrals: Johnnie Cooney MD [Primary Care Provider] - - Patient Instructions Printed Discharge Instructions: DI for Acute Pain -- Adult, Liver Function Tests Additional Instructions: You were seen in the Emergency Department today for facial pain. Your ultrasound results were provided. Please review the handouts provided at discharge. Please keep your follow up appointment with your primary care provider tomorrow and bring your results with you. Return to the Emergency Room if you develop fevers/chills, worsening abdominal pain, vomiting, or any new/ concerning symptoms. - Post Discharge Activity
[2017-11-11 22:22] VITALS: BP 118/68; PULSE 82; TEMP 98.2
== END 2017-11-11 22:21 | disposition home or self-care (01) ==
LOC: JER 16:27
PROC: 3E033GC Introduction of Other Therapeutic Substance into Peripheral Vein, Percutaneous Approach (ICD-10-PCS; principal; 2017-11-11)
PROC: 3E0233Z Introduction of Anti-inflammatory into Muscle, Percutaneous Approach (ICD-10-PCS; 2017-11-11)
DX: R51 Headache (principal); R74.0 Nonspecific elevation of levels of transaminase and lactic acid dehydrogenase [LDH]; E10.9 Type 1 diabetes mellitus without complications; Z79.4 Long term (current) use of insulin; J45.909 Unspecified asthma, uncomplicated
CPT/HCPCS: 36415; 76705-TC; 80053; 81003; 83036; 84703; 85025; 96372; 96374; 99283-25

== ENCOUNTER 2018-02-18 10:44 | Emergency (ER) | payer OTHER ==
[2018-02-18 11:27] VITALS: BMI 29.2
[2018-02-18] MEDS ORDERED: SODIUM CHLORIDE 0.9% 500 ML INFUS.BAG IV ONE (11:34)
[2018-02-18] MEDS ORDERED: ONDANSETRON 4 MG/2 ML VIAL IVPB ONE (11:35)
--- NOTE | 2018-02-18 11:38 | PDOC ---
History of Present Illness - General Chief Complaint: Nausea/Vomiting Stated Complaint: Weakness Time Seen by Provider: 02/18/18 11:31 - History of Present Illness Initial Comments: 02/18/18 11:36 33 yo F with h/o IDDM, asthma,who p/w vomitting, dysuria. Endorses acute onset Patient reports 3 days of dysuria, and foul smelling urine. Also endorses intermittent right sided flank pain, sharp shooting, and resolving spontaneously after seconds. No idenitifable triggers or alleviators. + 2 loose stools per day. Adherent to Levemir 30 U AM,missed yesterday (02-08-17) dose. + Sliding scale Insulin Novolog. Multiple ICU admissions for DKA Patient denies N/V, F,C, CP, SOB, urinary complaints, abdominal pain, diarrhea, constipation, lightheadedness, weakness, sensory changes. PMHx: as noted above ROS: as noted SHx: Denies IVDA Allergies: NKDA Past History - Past Medical History Allergies/Adverse Reactions: Allergies Allergy/AdvReac Type Severity Reaction Status Date / Time No Known Allergies Allergy Verified 02/18/18 11:23 Home Medications: Ambulatory Orders Insulin Sliding Scale [Novolog Vial Sliding Scale -] 0 units SQ TIDAC PRN Insulin (Levemir) [Levemir Flexpen -] 30 units SQ DAILY 10/04/16 Cephalexin [Keflex] 500 mg PO BID 5 Days #9 capsule 02/18/18 Anemia: No Asthma: Yes (stable) Cancer: No Cardiac Disorders: No CVA: No COPD: No CHF: No Dementia: No Diabetes: Yes (TYPE 1) GI Disorders: No Disorders: No HTN: No Hypercholesterolemia: No Liver Disease: No Seizures: No Thyroid Disease: No - Surgical History Abdominal Surgery: No Appendectomy: No Cardiac Surgery: No Cholecystectomy: No Gastric Stapling: No GI Surgery: No Lung Surgery: No Neurologic Surgery: No Orthopedic Surgery: No - Reproductive History (#): 11 Para: 4 Therapeutic (s) & number: Yes (4) Spontaneous : 2 - Immunization History Td Vaccination: Yes Immunization Up to Date: Yes - Suicide/Smoking/Psychosocial Hx Smoking Status: No Smoking History: Never smoked Years of Tobacco Use: 4 Have you smoked in the past 12 months: Yes Number of Cigarettes Smoked Daily: 1 Cigars Per Day: 0 'Breaking Loose' booklet given: 04/14/13 Hx Alcohol Use: Yes Drug/Substance Use Hx: No Substance Use Type: None Review of Systems - Review of Systems Comments:: 02/18/18 11:37 GENERAL/CONSTITUTIONAL: No fever or chills. No weakness. HEAD, EYES, EARS, NOSE AND THROAT: No change in vision. No ear pain or discharge. No sore throat. CARDIOVASCULAR: No chest pain or shortness of breath RESPIRATORY: No cough, wheezing, or hemoptysis. GASTROINTESTINAL:+Abdominal pain, nausea, vomiting. No diarrhea or constipation. GENITOURINARY: +dysuria, frequency, and change in urination. MUSCULOSKELETAL: No joint or muscle swelling or pain. No neck or back pain. SKIN: No rash NEUROLOGIC: No headache, vertigo, loss of consciousness, or change in strength/ sensation. ENDOCRINE: No increased thirst. No abnormal weight change HEMATOLOGIC/LYMPHATIC: No anemia, easy bleeding, or history of blood clots. ALLERGIC/IMMUNOLOGIC: No hives or skin allergy. *Physical Exam - Vital Signs Last Vital Signs Temp Pulse Resp BP Pulse Ox 98.0 F 133 H 26 H 124/99 100 02/18/18 11:23 02/18/18 11:23 02/18/18 11:23 02/18/18 11:23 02/18/18 11:23 - Physical Exam Comments: 02/18/18 11:37 GENERAL: Awake, alert, and fully oriented, in no acute distress HEAD: No signs of trauma, normocephalic, atraumatic EYES: PERRLA, EOMI, sclera anicteric, conjunctiva clear ENT: + Dry mucous membranes. Auricles normal inspection, hearing grossly normal , nares patent, oropharynx clear without exudates. NECK: Normal ROM, supple, no lymphadenopathy, JVD, or masses LUNGS: No distress, speaks full sentences, clear to auscultation bilaterally HEART: Regular rate and rhythm, normal S1 and S2, no murmurs, rubs or gallops, peripheral pulses normal and equal bilaterally. ABDOMEN: + Suprpapubic ttp, and + R flank ttp. Soft, NDS, normoactive bowel sounds. No guarding, no rebound. No masses EXTREMITIES : Normal inspection, Normal range of motion, no edema. No clubbing or cyanosis. NEUROLOGICAL: Cranial nerves II through XII grossly intact. Normal speech, normal gait, no focal sensorimotor deficits SKIN: Warm, Dry, normal turgor, no rashes or lesions noted Moderate Sedation - Procedure Monitoring Vital Signs: Procedure Monitoring Vital Signs Temperature 98.0 F 02/18/18 11:23 Pulse Rate 133 H 02/18/18 11:23 Respiratory Rate 26 H 02/18/18 11:23 Blood Pressure 124/99 02/18/18 11:23 O2 Sat by Pulse Oximetry (%) 100 02/18/18 11:23 ED Treatment Course - LABORATORY CBC & Chemistry Diagram: 02/18/18 11:55 02/18/18 16:30 Medical Decision Making - Medical Decision Making 02/18/18 12:00 33 yo F with h/o IDDM, asthma,who p/w vomitting, dysuria. HR 133, RR 26, vitals otheriwse wnl, AF, A&Ox3. + Suprpapubic ttp, and + R flank ttp. Dry mucous membranes. Will assess for hypo/hyperglycemia, DKA, electrolyte abnml, metabolic and toxic derangements, acid-base disturbances, infection. Will consider cystitis, obstructive uropathy, pyelonephritis, gastroenteritis, gastritis, biliary dz. pancreatitis, colitis, gastroparesis. ED Course: CBC, CMP, Mg, Ph, VBG, Serum Ketones, HCG UA, UCx EKG EKG: Sinus tachycardia 102, with absent CHRISTAL, STD, TWI. Nml axis and interval duration. 02/18/18 13:10 pH: 7.24 HCO3: 18 Acetone: Trace Glu~58 Preg: Neg D50 25 mg 02/18/18 15:47 UA+ 1+LE, 57 WBC, 4 RBC, neg nitrite. 02/18/18 15:48 Will repeat BMP,and VBG Keflex 500 mg 02/18/18 15:50 Patient tolerating PO intake. 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 Have provided patient with strict return precautions, and she agrees to follow up with her primary respiratory care instructor. *DC/Admit/Observation/Transfer Diagnosis at time of Disposition: Abdominal pain with vomiting - Discharge Dispostion Condition at time of disposition: Stable Decision to Admit order: No - Prescriptions Prescriptions: Cephalexin [Keflex] 500 mg PO BID 5 Days #9 capsule - Referrals Referrals: Johnnie Cooney MD [Primary Care Provider] - - Patient Instructions Printed Discharge Instructions: DI for Vomiting -- Adult Additional Instructions: Please return to the emergency department with any new or worsening symptoms or concerns. Please follow up with your primary care physician within 72 hours. Please take Keflex 2 times a day for 5 days. - Post Discharge Activity - Attestations Physician Attestion: 02/18/18 11:38 I attest to the information provided in this note.
--- NOTE | 2018-02-18 11:50 | PDOC ---
Attending Attestation - Resident Resident Name: Korey Negrete - ED Attending Attestation I have performed the following: I have examined & evaluated the patient, The case was reviewed & discussed with the resident, I agree w/resident's findings & plan, Exceptions are as noted - HPI HPI: 02/21/18 09:21 see aobve - Physicial Exam PE: 02/18/18 12:44 GENERAL: The patient is awake, alert, and fully oriented, Nontoxic - in no acute distress. HEAD: Normocephalic, atraumatic. EYES: extraocular movements intact, sclera anicteric, conjunctiva clear. ENT: Normal voice, dry mucous membranes. NECK: Normal range of motion, supple LUNGS: Breath sounds equal, clear to auscultation bilaterally. No wheezes, no rhonchi, no rales. HEART: tachcyardic ABDOMEN: Mild lower abdominal and right-sided tenderness to palpation, no CVA tenderness EXTREMITIES: Normal range of motion, no edema. No clubbing or cyanosis. No cords, erythema, or tenderness. NEUROLOGICAL: No facial assymetry, Normal speech, PSYCH: Normal mood, normal affect. SKIN: Warm, Dry, normal turgor, - Medical Decision Making 02/18/18 11:50 33y F hx of IDDM, hx of DKA, sathma, presents with vomiting x 1 day x 4 episodes nbnb, pt endorses 3 days of dysuria, lower bad cramping and foul smelling urine associated R flank pain that is sharp/shooting that occurs intermittently and 2 loose stools/day. no associated fever/chills, hematuria. complaint with dm meds (but did miss a dose yesterday) Blood work was obtained to rule out DKA, metabolic derangements, fluid for hydration 02/18/18 12:46 The patient's blood glucose was 36 will give the patient D50 The patient's heart rate has improved after 1 L of normal saline currently at 112 will give another liter awaiting CMP 02/18/18 14:30 labs reviewed noted for acidosis, bgm low hcl low 02/18/18 18:05 The patient's lab work was repeated her acidosis has improved her bicarb dropped slightly bgm normal pt notes she feels significantly improved. vitals wnl recommended observation to further evalutae and trend her metabolic derangement However the patient declined, states that she has family obligations and she refuses staying in the hospital, states that she feels significantly improved she did understand that if she was feeling unwell including any symptoms she can come back to the ER for further evaluation. Antibiotics will have her follow with her primary care doctor.
[2018-02-18] MEDS ORDERED: ONDANSETRON 4 MG/2 ML VIAL ONE (12:04)
[2018-02-18 12:17] LABS: BASO % 0.7 % (0-2.0); HEMATOCRIT 47.8 % (32.4-45.2); HEMOGLOBIN 16.3 GM/dL (10.7-15.3); LYMPH % 31.4 % (8-40); MCH 29.8 pg (25.7-33.7); MCHC 34.1 g/dl (32.0-36.0); MEAN CELL VOLUME 87.4 fl (80-96); MEAN PLT VOLUME 9.9 fl (7.5-11.1); MONO % 7.2 % (3.8-10.2); NEUT % 59.7 % (42.8-82.8); PLATELET COUNT 293 K/MM3 (134-434); RBC 5.47 M/mm3 (3.60-5.2); RDW 13.1 % (11.6-15.6); VENOUS PC02 40.5 mmHg (38-52); VENOUS PH 7.24 (7.32-7.42); VENOUS PO2 31.5 mmHg (28-48); WHITE BLOOD COUNT 6.8 K/mm3 (4.0-10.0)
[2018-02-18 12:42] LABS: MAGNESIUM 2.1 mg/dL (1.8-2.4); PHOSPHOROUS 3.9 mg/dL (2.5-4.9)
[2018-02-18] MEDS ORDERED: DEXTROSE 50%-WATER - 25 GM/50 ML VIAL IVPUSH ONE (12:45)
[2018-02-18] MEDS ORDERED: SODIUM CHLORIDE 1,000 ML IV ONE (12:46)
[2018-02-18] MEDS ORDERED: DEXTROSE 50%-WATER 25 GM/50 ML DISP.SYRIN ONE (12:46)
[2018-02-18 12:47] LABS: ALBUMIN 4.5 g/dl (3.4-5.0); ALK PHOS 150 U/L (45-117); ANION GAP 14 MMOL/L (8-16); BILIRUBIN,TOTAL 0.6 mg/dL (0.2-1); BLOOD UREA NITROGEN 19 mg/dL (7-18); CHLORIDE 104 mmol/L (98-107); CO2 18 mmol/L (21-32); CREATININE 0.9 mg/dL (0.55-1.3); GLUCOSE,RANDOM 58 mg/dL (74-106); LIPASE 64 U/L (73-393); POTASSIUM 4.8 mmol/L (3.5-5.1); SGOT/AST 13 U/L (15-37); SGPT/ALT 36 U/L (13-61); SODIUM 136 mmol/L (136-145); TOT PROT 8.5 g/dl (6.4-8.2)
--- NOTE | 2018-02-18 12:56 | EKG ---
Test Reason : Blood Pressure : / mmHG Vent. Rate : 102 BPM Atrial Rate : 102 BPM P-R Int : 144 ms QRS Dur : 086 ms QT Int : 348 ms P-R-T Axes : 053 085 047 degrees QTc Int : 453 ms SINUS TACHYCARDIA OTHERWISE NORMAL ECG WHEN COMPARED WITH ECG OF 25-AUG-2017 00:27, T WAVE VARIATION Confirmed by IVELISSE ALICEA MD ([id number]) on 02/18/2018 12:56:07 PM Referred By: Confirmed By:IVELISSE ALICEA MD
[2018-02-18 13:08] LABS: ACETONE SERUM TRACE (NEGATIVE)
[2018-02-18] MEDS ORDERED: SODIUM CHLORIDE 1,000 ML IV STA (14:29)
[2018-02-18] MEDS ORDERED: ACETAMINOPHEN 1000 MG/100 ML VIAL (NON FORMULARY) IVPB ONE (14:34)
[2018-02-18] MEDS ORDERED: ACETAMINOPHEN INJECTION 100 ML IVPB ONE (14:49)
[2018-02-18 14:51] LABS: URINE APPEARANCE SLCLOUDY; URINE BILIRUBIN NEGATIVE (<2.0 mg/dL); URINE COLOR YELLOW; URINE GLUCOSE (UA) 3+ (NEGATIVE); URINE KETONE 2+ (NEGATIVE); URINE LEUK ESTERASE 1+ (NEGATIVE); URINE NITRITE NEGATIVE (NEGATIVE); URINE PROTEIN 2+ (NEGATIVE); URINE UROBILINOGEN NEGATIVE mg/dL (0.2-1.0)
[2018-02-18 15:42] LABS: EPI CELLS RARE /HPF (FEW); URINE BACTERIA RARE /hpf (NONE SEEN); URINE HYALINE CAST 4 /lpf; URINE MUCUS FEW
[2018-02-18] MEDS ORDERED: CEPHALEXIN MONOHYDRATE 500 MG CAPSULE (UD) PO ONE (15:48)
[2018-02-18] MEDS ORDERED: CEPHALEXIN MONOHYDRATE 500 MG CAPSULE (UD) ONE (16:48)
[2018-02-18 17:14] LABS: VENOUS PH 7.29 (7.32-7.42)
[2018-02-18 17:39] LABS: ANION GAP 13 MMOL/L (8-16); BLOOD UREA NITROGEN 16 mg/dL (7-18); CALCIUM 8.3 mg/dL (8.5-10.1); CHLORIDE 109 mmol/L (98-107); CO2 16 mmol/L (21-32); CREATININE 0.6 mg/dL (0.55-1.3); GLUCOSE,RANDOM 100 mg/dL (74-106); POTASSIUM 4.2 mmol/L (3.5-5.1); SODIUM 138 mmol/L (136-145)
[2018-02-18 18:02] VITALS: BP 105/72; PULSE 104; TEMP 98.3
== END 2018-02-18 18:25 | disposition home or self-care (01) ==
LOC: JER 10:44
PROC: 3E0337Z Introduction of Electrolytic and Water Balance Substance into Peripheral Vein, Percutaneous Approach (ICD-10-PCS; principal; 2018-02-18)
PROC: 3E0337Z Introduction of Electrolytic and Water Balance Substance into Peripheral Vein, Percutaneous Approach (ICD-10-PCS; 2018-02-18)
PROC: 3E0337Z Introduction of Electrolytic and Water Balance Substance into Peripheral Vein, Percutaneous Approach (ICD-10-PCS; 2018-02-18)
PROC: 3E033GC Introduction of Other Therapeutic Substance into Peripheral Vein, Percutaneous Approach (ICD-10-PCS; 2018-02-18)
PROC: 3E033NZ Introduction of Analgesics, Hypnotics, Sedatives into Peripheral Vein, Percutaneous Approach (ICD-10-PCS; 2018-02-18)
DX: R10.31 Right lower quadrant pain (principal); R11.2 Nausea with vomiting, unspecified; E10.649 Type 1 diabetes mellitus with hypoglycemia without coma; Z79.4 Long term (current) use of insulin
CPT/HCPCS: 36415; 80048; 80053; 81003; 81015; 82009; 82803; 82962; 83690; 83735; 84100; 84703; 85025; 87086; 87186; 93005; 93010; 96361; 96374; 96375; 99283-25; J0131; J7030

== ENCOUNTER 2018-03-22 20:45 | Emergency (ER) | payer OTHER ==
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
[2018-03-22 20:54] VITALS: BP 111/78; PULSE 80; TEMP 97.5; BMI 30.1
[2018-03-22] MEDS ORDERED: BACITRACIN 15 GM TUBE TOPICAL OINTMENT TP ONE (21:40)
[2018-03-22] MEDS ORDERED: BACITRACIN 15 GM TUBE TOPICAL OINTMENT ONE (21:44)
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
[2018-03-22] MEDS ORDERED: DIPHTH,PERTUSS(ACELL),TET 0.5 ML DISP.SYRIN IM ONE ×2 (21:50→21:53)
== END 2018-03-22 21:59 | disposition home or self-care (01) ==
LOC: JERFT 20:45
PROC: 3E0234Z Introduction of Serum, Toxoid and Vaccine into Muscle, Percutaneous Approach (ICD-10-PCS; principal; 2018-03-22)
PROC: 2W28X4Z Dressing of Right Upper Extremity using Bandage (ICD-10-PCS; 2018-03-22)
DX: T22.051A Burn of unspecified degree of right shoulder, initial encounter (principal); X11.8XXA Contact with other hot tap-water, initial encounter; Y93.89 Activity, other specified; Y92.59 Other trade areas as the place of occurrence of the external cause; Y99.8 Other external cause status; E10.9 Type 1 diabetes mellitus without complications; Z79.4 Long term (current) use of insulin
CPT/HCPCS: 16020; 90471; 90715; 99281-25

== ENCOUNTER 2018-10-25 09:54 | Observation (INO) | payer OTHER ==
[2018-10-25] MEDS ORDERED: SODIUM CHLORIDE 1,000 ML IV STA ×2 (10:12→10:26)
--- NOTE | 2018-10-25 10:26 | PDOC ---
History of Present Illness - General Chief Complaint: Blood Sugar Problem Stated Complaint: BLOOD SUGAR PROBLEM Past History - Past Medical History Allergies/Adverse Reactions: Allergies Allergy/AdvReac Type Severity Reaction Status Date / Time No Known Allergies Allergy Verified 02/18/18 11:23 Home Medications: Ambulatory Orders Insulin Sliding Scale [Novolog Vial Sliding Scale -] 0 units SQ TIDAC PRN Insulin (Levemir) [Levemir Flexpen -] 30 units SQ DAILY 10/04/16 Anemia: No Asthma: Yes (stable) Cancer: No Cardiac Disorders: No CVA: No COPD: No CHF: No Dementia: No Diabetes: Yes (TYPE 1) GI Disorders: No Disorders: No HTN: No Hypercholesterolemia: No Liver Disease: No Seizures: No Thyroid Disease: No - Surgical History Abdominal Surgery: No Appendectomy: No Cardiac Surgery: No Cholecystectomy: No Gastric Stapling: No GI Surgery: No Lung Surgery: No Neurologic Surgery: No Orthopedic Surgery: No - Reproductive History (#): 11 Para: 4 Therapeutic (s) & number: Yes (4) Spontaneous : 2 - Immunization History Td Vaccination: Yes Immunization Up to Date: Yes - Suicide/Smoking/Psychosocial Hx Smoking Status: No Smoking History: Never smoked Years of Tobacco Use: 4 Have you smoked in the past 12 months: No Number of Cigarettes Smoked Daily: 1 Cigars Per Day: 0 Information on smoking cessation initiated: No 'Breaking Loose' booklet given: 04/14/13 Hx Alcohol Use: No Drug/Substance Use Hx: No Substance Use Type: None *Physical Exam - Vital Signs Last Vital Signs Temp Pulse Resp BP Pulse Ox 98.2 F 120 H 16 114/73 100 10/25/18 10:00 10/25/18 10:00 10/25/18 10:00 10/25/18 10:00 10/25/18 10:00
[2018-10-25 10:42] LABS: EPI CELLS 1.4 /HPF (0-5/HPF); HYALINE CASTS 2 /lpf (0-8); URINE APPEARANCE CLEAR; URINE BACTERIA 27.3 /hpf (NEGATIVE); URINE BILIRUBIN NEGATIVE (NEGATIVE); URINE COLOR YELLOW; URINE GLUCOSE (UA) 3+ (NEGATIVE); URINE KETONE 4+ (NEGATIVE); URINE LEUK ESTERASE NEGATIVE (NEGATIVE); URINE NITRITE NEGATIVE (NEGATIVE); URINE PROTEIN TRACE (NEGATIVE); URINE RBC 2 /hpf (0-4); URINE UROBILINOGEN 0.2 mg/dL (0.2-1.0); URINE WBC 1 /hpf (0-5)
[2018-10-25 10:47] LABS: VENOUS PH 7.29 (7.31-7.41)
[2018-10-25 10:48] LABS: VENOUS PO2 < 49 mmHg (28-48)
[2018-10-25 10:58] LABS: BASO % 0.3 % (0-2.0); EOS % 0.2 % (0-4.5); HEMATOCRIT 39.9 % (32.4-45.2); HEMOGLOBIN 13.5 GM/dL (10.7-15.3); LYMPH % 8.8 % (8-40); MCH 29.7 pg (25.7-33.7); MCHC 33.8 g/dl (32.0-36.0); MEAN CELL VOLUME 87.8 fl (80-96); MEAN PLT VOLUME 9.4 fl (7.5-11.1); MONO % 3.9 % (3.8-10.2); NEUT % 86.8 % (42.8-82.8); PLATELET COUNT 206 K/MM3 (134-434); RBC 4.55 M/mm3 (3.60-5.2); WHITE BLOOD COUNT 10.2 K/mm3 (4.0-10.0)
[2018-10-25 11:14] LABS: INR 1.06 (0.83-1.09); PROTHROMBIN TIME (PATIENT) 12.5 SEC (9.7-13.0)
[2018-10-25 11:15] LABS: ALBUMIN 3.7 g/dl (3.4-5.0); ALK PHOS 87 U/L (45-117); ANION GAP 15 MMOL/L (8-16); BILIRUBIN,TOTAL 0.6 mg/dL (0.2-1); BLOOD UREA NITROGEN 13.6 mg/dL (7-18); CALCIUM 8.4 mg/dL (8.5-10.1); CHLORIDE 106 mmol/L (98-107); CO2 12 mmol/L (21-32); CREATININE 0.8 mg/dL (0.55-1.3); GLUCOSE,RANDOM 296 mg/dL (74-106); LIPASE 80 U/L (73-393); MAGNESIUM 1.9 mg/dL (1.8-2.4); N-TERMINAL BNP 27.8 pg/ml (5-125); POTASSIUM 3.2 mmol/L (3.5-5.1); SGOT/AST 10 U/L (15-37); SGPT/ALT 18 U/L (13-61); SODIUM 133 mmol/L (136-145); TOT PROT 6.8 g/dl (6.4-8.2)
[2018-10-25 11:16] LABS: ACTIVATED PTT 32.2 SECONDS (25.2-36.5)
[2018-10-25] MEDS ORDERED: POTASSIUM CHLORIDE ORAL LIQUID 20 MEQ/15 ML PO ONE (12:13)
[2018-10-25] MEDS ORDERED: POTASSIUM CHLORIDE 10 MEQ in SODIUM CHLORIDE 1,000 ML IVPB SCH (12:15)
[2018-10-25] MEDS ORDERED: POTASSIUM CHLORIDE TABS 20 MEQ TABLET.ER (FP) PO ONE ×2 (12:21→17:18)
[2018-10-25] MEDS ORDERED: KCL 10 MEQ IVPB 10 MEQ/100 ML INFUS.BAG IVPB ONE ×2 (12:21→13:34)
[2018-10-25] MEDS: KCL 10 MEQ IVPB 10 MEQ/100 ML INFUS.BAG IVPB SCH ×3 (12:48→14:26)
[2018-10-25] MEDS ORDERED: MAGNESIUM SULF 50% (8.12 MEQ/2 ML-1 GM VIAL) ONE (14:17)
[2018-10-25 15:11] LABS: ANION GAP 11 MMOL/L (8-16); CALCIUM 7.6 mg/dL (8.5-10.1); CHLORIDE 113 mmol/L (98-107); CO2 15 mmol/L (21-32); CREATININE 0.6 mg/dL (0.55-1.3); GLUCOSE,RANDOM 115 mg/dL (74-106); POTASSIUM 3.9 mmol/L (3.5-5.1); SODIUM 139 mmol/L (136-145)
[2018-10-25 15:52] LABS: ACETONE SERUM POSITIVE SMALL 1+ (NEGATIVE)
--- NOTE | 2018-10-25 16:52 | PDOC ---
Documentation entered by Norma Nieto SCRIBE, acting as scribe for Gui Gamez MD. Gui aGmez MD: This documentation has been prepared by the Gerson fang Adrianna, SCRIBE, under my direction and personally reviewed by me in its entirety. I confirm that the documentation accurately reflects all work, treatment, procedures, and medical decision making performed by me. History of Present Illness - General Chief Complaint: Blood Sugar Problem Stated Complaint: BLOOD SUGAR PROBLEM - History of Present Illness Initial Comments: The patient is a 33 year old female, with a significant PMH of IDDM, asthma, and IBS, who presents to the ED for evaluation of elevated blood sugar for 1.5 month. Patient notes she has been on 30 units of Levemir daily, but due to insurance issues the medication was no longer covered. Her PCP placed her on Basaglar, and the patient notes she did not respond well to the change in medication. She notes her injection sites became irritated, itchy, and painful. Patient also complains of low back pain, bilateral upper and lower extremity pain, chills, and increased urinary frequency secondary to the new medication. Patient stopped taking Basaglar one week ago secondary to her new onset symptoms , and has been trying to cover using regular insulin in the meantime. Patient notes her blood sugar was 471 this morning, prompting her visit to the ED today. Patient reports feeling dehydrated and complains of a dry mouth. States with levemir, her Denies chest pain, fever, abdominal pain, dysuria, hematuria. Allergies: NKA, NKDA Surgical History: None reported Social History: Denies EtOH, tobacco, or illicit drug use PCP: Dr. Cooney Past History - Past Medical History Allergies/Adverse Reactions: Allergies Allergy/AdvReac Type Severity Reaction Status Date / Time No Known Allergies Allergy Verified 02/18/18 11:23 Home Medications: Ambulatory Orders Insulin Sliding Scale [Novolog Vial Sliding Scale -] 0 units SQ TIDAC PRN Insulin (Levemir) [Levemir Flexpen -] 30 units SQ DAILY 10/04/16 Insulin Glargine,Hum.rec.anlog [Basaglar Kwikpen U-100] 100 unit SQ ASDIR Anemia: No Asthma: Yes (stable) Cancer: No Cardiac Disorders: No CVA: No COPD: No CHF: No Dementia: No Diabetes: Yes (TYPE 1) GI Disorders: No Disorders: No HTN: No Hypercholesterolemia: No Liver Disease: No Seizures: No Thyroid Disease: No - Surgical History Abdominal Surgery: No Appendectomy: No Cardiac Surgery: No Cholecystectomy: No Gastric Stapling: No GI Surgery: No Lung Surgery: No Neurologic Surgery: No Orthopedic Surgery: No - Reproductive History (#): 11 Para: 4 Therapeutic (s) & number: Yes (4) Spontaneous : 2 - Immunization History Td Vaccination: Yes Immunization Up to Date: Yes - Suicide/Smoking/Psychosocial Hx Smoking Status: No Smoking History: Never smoked Years of Tobacco Use: 4 Have you smoked in the past 12 months: No Number of Cigarettes Smoked Daily: 1 Cigars Per Day: 0 Information on smoking cessation initiated: No 'Breaking Loose' booklet given: 04/14/13 Hx Alcohol Use: No Drug/Substance Use Hx: No Substance Use Type: None Review of Systems - Review of Systems Comments:: GENERAL/CONSTITUTIONAL: +Dehydrated. +Dry mouth. +Chills (secondary to change in meds). +Elevated blood sugar (471). No fever. No weakness. HEAD, EYES, EARS, NOSE AND THROAT: No change in vision. No ear pain or discharge. No sore throat. GASTROINTESTINAL: No nausea, vomiting. GENITOURINARY: +Increased urinary frequency (secondary to change in meds). No dysuria, or hematuria. CARDIOVASCULAR: No chest pain. RESPIRATORY: No cough, wheezing, or hemoptysis. MUSCULOSKELETAL: +Bilateral upper and lower extremity pain (secondary to change in meds). +Low back pain (secondary to change in meds). No joint or muscle swelling. No neck pain. SKIN: +Irritated, itchy, and painful injection sites over the LLQ of the abdomen. No rash NEUROLOGIC: No headache, vertigo, loss of consciousness, or change in strength/ sensation. ENDOCRINE: No increased thirst. No abnormal weight change. HEMATOLOGIC/LYMPHATIC: No anemia, easy bleeding, or history of blood clots. ALLERGIC/IMMUNOLOGIC: No hives or skin allergy. *Physical Exam - Vital Signs Last Vital Signs Temp Pulse Resp BP Pulse Ox 98.2 F 120 H 16 114/73 100 10/25/18 10:00 10/25/18 10:00 10/25/18 10:00 10/25/18 10:00 10/25/18 10:00 - Physical Exam Comments: GENERAL: Awake, alert, and fully oriented, in no acute distress HEAD: No signs of trauma EYES: PERRLA, EOMI, sclera anicteric, conjunctiva clear ENT: +Dry mucous membranes. Auricles normal inspection, hearing grossly normal, nares patent, oropharynx clear without exudates. NECK: Normal ROM, supple, no lymphadenopathy, JVD, or masses LUNGS: Breath sounds equal, clear to auscultation bilaterally. No wheezes, and no crackles HEART: +Tachycardic. Regular rhythm, normal S1 and S2, no murmurs, rubs or gallops ABDOMEN: Soft, nontender, normoactive bowel sounds. No guarding, no rebound. No masses EXTREMITIES: Normal range of motion, no edema. No clubbing or cyanosis. No cords , erythema, or tenderness BACK: No midline spinal tenderness in cervical/thoracic/lumbar region NEUROLOGICAL: Normal speech, cranial nerves intact, equal strength and sensation b/l SKIN: +Multiple puncture sites on the LLQ without erythema, induration, or fluctuance. Warm, Dry, normal turgor, no rashes noted. ED Treatment Course - LABORATORY CBC & Chemistry Diagram: 10/25/18 10:30 10/25/18 14:45 - ADDITIONAL ORDERS Additional order review: Laboratory Results 10/25/18 10/25/18 10/25/18 10:36 10:30 10:20 VBG pH 7.29 L POC VBG pCO2 27.0 L POC VBG pO2 < 49 H VBG HCO3 12.6 L VBG O2 Sat (Ronna) 71.0 VBG Base Excess -12.4 L POC Glucometer 275 Urine Color Urine Appearance Urine pH Ur Specific [place] Urine Protein Urine Glucose (UA) Urine Ketones Urine Blood Urine Nitrite Urine Bilirubin Urine Urobilinogen Ur Leukocyte Esterase Urine WBC (Auto) Urine RBC (Auto) Urine Casts (Auto) U Epithel Cells (Auto) Urine Bacteria (Auto) Urine HCG, Qual Negative 10/25/18 10:20 VBG pH POC VBG pCO2 POC VBG pO2 VBG HCO3 VBG O2 Sat (Ronna) VBG Base Excess POC Glucometer Urine Color Yellow Urine Appearance Clear Urine pH 5.0 Ur Specific [place] 1.031 Urine Protein Trace Urine Glucose (UA) 3+ H Urine Ketones 4+ H Urine Blood 1+ H Urine Nitrite Negative Urine Bilirubin Negative Urine Urobilinogen 0.2 Ur Leukocyte Esterase Negative Urine WBC (Auto) 1 Urine RBC (Auto) 2 Urine Casts (Auto) 2 U Epithel Cells (Auto) 1.4 Urine Bacteria (Auto) 27.3 Urine HCG, Qual 10/25/18 10:36 POC Glucometer 275 Medical Decision Making - Medical Decision Making 10/25/18 10:49 33yo F hx adult onset insulin dependent DM, IBS presents to the ED with weakness , elevated blood sugars in setting of insurance issues with long acting insuln. Vitals with tachycardia to 120 IV placed, 2L NS ordered WIll obtain labs, including VBG, acetone Likely DKA, anticipate admission 10/25/18 17:10 Initial labs with potassium 3.2, as such K repleted with PO KCl 40mg, IV potassium x3 runs, NS with 10meq KCl pH 7.29, acetone 3+, corrected gap 18, consistent with DKA Due to hypokalemia, withheld insulin gtt until rpt BMP Rpt BMP K 3.9, however gap has closed (pt took 14units of her own insulin [employer]) and got 2L NS here Acetone remains elevated however and pt still has no long acting insulin As such, pt admitted for better glycemic control, adjustment of insulin regimen Case discussed with Dr. Hernandez/Darvin, pt admitted for further mgmt Case discussed in detail with admitting physician including history, physical exam and ancillary studies. Admitting physician has assumed care for the patient, will follow all pending diagnostics and will complete the evaluation and treatment. *DC/Admit/Observation/Transfer Diagnosis at time of Disposition: DKA (diabetic ketoacidoses) Qualifiers: Diabetes mellitus type: other specified (including VERONICA) Diabetes mellitus complication detail: without coma Qualified Code(s): E13.10 - Other specified diabetes mellitus with ketoacidosis without coma - Referrals - Patient Instructions - Post Discharge Activity - Attestations Physician Attestion: 10/25/18 17:49 I, Dr. Gui Gamez MD, attest that this document has been prepared under my direction and personally reviewed by me in its entirety. I further attest, that it accurately reflects all work, treatment, procedures and medical decision -making performed by me.
[2018-10-25] MEDS ORDERED: LACTATED RINGERS SOLUTION 1000 ML INFUS.BAG IV ONE (16:55)
[2018-10-25] MEDS ORDERED: LACTATED RINGERS SOLUTION 1,000 ML/1,000 ML INFUS.BAG IV SCH (17:00)
[2018-10-25] MEDS ORDERED: INSULIN (LEVEMIR) 100 UNITS/ML UNITS SQ ONE (17:14)
[2018-10-25] MEDS ORDERED: MAGNESIUM OXIDE 400 MG TABLET (FP) PO ONE (17:18)
--- NOTE | 2018-10-25 17:18 | HP ---
<Benoit Hernandez - Last Filed: 10/25/18 17:25> CHIEF COMPLAINT: low sugar PCP: Mansi GI: Deangelo Endo: pt planning to start seeing someone at [facility] HISTORY OF PRESENT ILLNESS: Pt is a 33 y/o F with PMH IDDM (diagnosed 5 years ago), asthma, IBS who presented to ED with complaint of low blood sugar. She stated that her insurance stopped covering her long acting Ins. She was covering with regular insulin, but decided to come to the ED as she was not able to sustain normal sugars. Her sugars have been in the 300s and 400s. ER course was notable for: (1) metab acidosis with gap, which resolved promptly with therapy (2) hypokalemia, repleted (3) Recent Travel: denies PAST MEDICAL HISTORY: as above PAST SURGICAL HISTORY: R annelise remotely Social History: Smoking: stopped 5 years ago Alcohol: denies Drugs: stopped smoking marijuana 5 years ago Allergies No Known Allergies Allergy (Verified 02/18/18 11:23) HOME MEDICATIONS: Home Medications Medication Instructions Recorded Insulin Sliding Scale [Novolog 0 units SQ TIDAC PRN 09/19/16 Vial Sliding Scale -] Insulin (Levemir) [Levemir Flexpen 30 units SQ DAILY 10/04/16 -] Insulin Glargine,Hum.rec.anlog 100 unit SQ ASDIR 10/25/18 [Basaglar Kwikpen U-100] REVIEW OF SYSTEMS CONSTITUTIONAL: Absent: fever, chills, diaphoresis, generalized weakness, malaise, loss of appetite, weight change HEENT: Absent: rhinorrhea, nasal congestion, throat pain, throat swelling, difficulty swallowing, mouth swelling, ear pain, eye pain, visual changes CARDIOVASCULAR: Absent: chest pain, syncope, palpitations, irregular heart rate, lightheadedness , peripheral edema RESPIRATORY: Absent: cough, shortness of breath, dyspnea with exertion, orthopnea, wheezing, stridor, hemoptysis GASTROINTESTINAL: Absent: abdominal pain, abdominal distension, nausea, vomiting, diarrhea, constipation, melena, hematochezia GENITOURINARY: Absent: dysuria, frequency, urgency, hesitancy, hematuria, flank pain, genital pain MUSCULOSKELETAL: myalgia, arthralgia when on basiglar Absent: , joint swelling, back pain, neck pain SKIN: Absent: rash, itching, pallor HEMATOLOGIC/IMMUNOLOGIC: Absent: easy bleeding, easy bruising, lymphadenopathy, frequent infections ENDOCRINE: Absent: unexplained weight gain, unexplained weight loss, heat intolerance, cold intolerance NEUROLOGIC: Absent: headache, focal weakness or paresthesias, dizziness, unsteady gait, seizure, mental status changes, bladder or bowel incontinence PSYCHIATRIC: Absent: anxiety, depression, suicidal or homicidal ideation, hallucinations. PHYSICAL EXAMINATION Vital Signs - 24 hr 10/25/18 10/25/18 10/25/18 10:00 11:36 14:46 Temperature 98.2 F 99.3 F Pulse Rate 120 H Pulse Rate [ 96 H 97 H Right] Respiratory 16 13 Rate Blood Pressure 114/73 Blood Pressure 93/54 L [Right Arm] O2 Sat by Pulse 100 100 100 Oximetry (%) GENERAL: Awake, alert, and fully oriented, in no acute distress. HEAD: Normal with no signs of trauma. EYES: Pupils equal, round and reactive to light, extraocular movements intact, sclera anicteric, conjunctiva clear. No lid lag. EARS, NOSE, THROAT: Ears normal, nares patent, oropharynx clear without exudates. Moist mucous membranes. NECK: Normal range of motion, supple without lymphadenopathy, JVD, or masses. LUNGS: Breath sounds equal, clear to auscultation bilaterally. No wheezes, and no crackles. No accessory muscle use. HEART: Regular rate and rhythm, normal S1 and S2 without murmur, rub or gallop. ABDOMEN: Soft, nontender, not distended, normoactive bowel sounds, no guarding, no rebound, no masses. No hepatomegaly or splenomegaly. MUSCULOSKELETAL: Normal range of motion at all joints. No bony deformities or tenderness. No CVA tenderness. UPPER EXTREMITIES: 2+ pulses, warm, well-perfused. No cyanosis. No clubbing. No peripheral edema. LOWER EXTREMITIES: 2+ pulses, warm, well-perfused. No calf tenderness. No peripheral edema. NEUROLOGICAL: Cranial nerves II-XII intact. Normal speech. Normal gait. PSYCHIATRIC: Cooperative. Good eye contact. Appropriate mood and affect. SKIN: Warm, dry, normal turgor, no rashes or lesions noted, normal capillary refill. Laboratory Results - last 24 hr 10/25/18 10/25/18 10/25/18 10:20 10:20 10:30 WBC RBC Hgb Hct MCV MCH MCHC RDW Plt Count MPV Absolute Neuts (auto) Neutrophils % Lymphocytes % Monocytes % Eosinophils % Basophils % Nucleated RBC % PT with INR INR PTT (Actin FS) VBG pH POC VBG pCO2 POC VBG pO2 VBG HCO3 VBG O2 Sat (Ronna) VBG Base Excess Sodium Potassium Chloride Carbon Dioxide Anion Gap BUN Creatinine Est GFR (CKD-EPI)AfAm Est GFR (CKD-EPI)NonAf POC Glucometer Random Glucose Lactic Acid 1.2 Calcium Magnesium Total Bilirubin AST ALT Alkaline Phosphatase Troponin I B-Natriuretic Peptide Total Protein Albumin Lipase Urine Color Yellow Urine Appearance Clear Urine pH 5.0 Ur Specific [place] 1.031 Urine Protein Trace Urine Glucose (UA) 3+ H Urine Ketones 4+ H Urine Blood 1+ H Urine Nitrite Negative Urine Bilirubin Negative Urine Urobilinogen 0.2 Ur Leukocyte Esterase Negative Urine WBC (Auto) 1 Urine RBC (Auto) 2 Urine Casts (Auto) 2 U Epithel Cells (Auto) 1.4 Urine Bacteria (Auto) 27.3 Urine HCG, Qual Negative Acetone, Qual 10/25/18 10/25/18 10/25/18 10:30 10:30 10:30 WBC 10.2 H RBC 4.55 Hgb 13.5 Hct 39.9 D MCV 87.8 MCH 29.7 MCHC 33.8 RDW 13.0 Plt Count 206 D MPV 9.4 Absolute Neuts (auto) 8.9 H Neutrophils % 86.8 H D Lymphocytes % 8.8 D Monocytes % 3.9 Eosinophils % 0.2 Basophils % 0.3 Nucleated RBC % 0 PT with INR INR PTT (Actin FS) Cancelled VBG pH POC VBG pCO2 POC VBG pO2 VBG HCO3 VBG O2 Sat (Ronna) VBG Base Excess Sodium 133 L Potassium 3.2 L Chloride 106 Carbon Dioxide 12 L Anion Gap 15 BUN 13.6 Creatinine 0.8 Est GFR (CKD-EPI)AfAm 111.48 Est GFR (CKD-EPI)NonAf 96.19 POC Glucometer Random Glucose 296 H Lactic Acid Calcium 8.4 L Magnesium 1.9 Total Bilirubin 0.6 AST 10 L ALT 18 Alkaline Phosphatase 87 Troponin I < 0.02 B-Natriuretic Peptide 27.8 Total Protein 6.8 Albumin 3.7 Lipase 80 Urine Color Urine Appearance Urine pH Ur Specific [place] Urine Protein Urine Glucose (UA) Urine Ketones Urine Blood Urine Nitrite Urine Bilirubin Urine Urobilinogen Ur Leukocyte Esterase Urine WBC (Auto) Urine RBC (Auto) Urine Casts (Auto) U Epithel Cells (Auto) Urine Bacteria (Auto) Urine HCG, Qual Acetone, Qual 10/25/18 10/25/18 10/25/18 10:30 10:30 10:30 WBC RBC Hgb Hct MCV MCH MCHC RDW Plt Count MPV Absolute Neuts (auto) Neutrophils % Lymphocytes % Monocytes % Eosinophils % Basophils % Nucleated RBC % PT with INR 12.50 INR 1.06 PTT (Actin FS) 32.2 VBG pH 7.29 L POC VBG pCO2 27.0 L POC VBG pO2 < 49 H VBG HCO3 12.6 L VBG O2 Sat (Ronna) 71.0 VBG Base Excess -12.4 L Sodium Potassium Chloride Carbon Dioxide Anion Gap BUN Creatinine Est GFR (CKD-EPI)AfAm Est GFR (CKD-EPI)NonAf POC Glucometer Random Glucose Lactic Acid Calcium Magnesium Total Bilirubin AST ALT Alkaline Phosphatase Troponin I B-Natriuretic Peptide Total Protein Albumin Lipase Urine Color Urine Appearance Urine pH Ur Specific [place] Urine Protein Urine Glucose (UA) Urine Ketones Urine Blood Urine Nitrite Urine Bilirubin Urine Urobilinogen Ur Leukocyte Esterase Urine WBC (Auto) Urine RBC (Auto) Urine Casts (Auto) U Epithel Cells (Auto) Urine Bacteria (Auto) Urine HCG, Qual Acetone, Qual Positive large 3+ H 10/25/18 10/25/18 10/25/18 10:36 14:45 14:45 WBC RBC Hgb Hct MCV MCH MCHC RDW Plt Count MPV Absolute Neuts (auto) Neutrophils % Lymphocytes % Monocytes % Eosinophils % Basophils % Nucleated RBC % PT with INR INR PTT (Actin FS) VBG pH POC VBG pCO2 POC VBG pO2 VBG HCO3 VBG O2 Sat (Ronna) VBG Base Excess Sodium 139 Potassium 3.9 Chloride 113 H Carbon Dioxide 15 L Anion Gap 11 BUN 10.0 Creatinine 0.6 Est GFR (CKD-EPI)AfAm 137.83 Est GFR (CKD-EPI)NonAf 118.92 POC Glucometer 275 115 Random Glucose 115 H Lactic Acid Calcium 7.6 L Magnesium Total Bilirubin AST ALT Alkaline Phosphatase Troponin I B-Natriuretic Peptide Total Protein Albumin Lipase Urine Color Urine Appearance Urine pH Ur Specific [place] Urine Protein Urine Glucose (UA) Urine Ketones Urine Blood Urine Nitrite Urine Bilirubin Urine Urobilinogen Ur Leukocyte Esterase Urine WBC (Auto) Urine RBC (Auto) Urine Casts (Auto) U Epithel Cells (Auto) Urine Bacteria (Auto) Urine HCG, Qual Acetone, Qual Positive small 1+ H ASSESSMENT/PLAN: Pt is a 33 y/o F with PMH IDDM (diagnosed 5 years ago), asthma, IBS who presented to ED with complaint of low blood sugar. Admitted with mild DKA. #DKA -Gap closed in ED -ISS -Levemir 15 tonight -Levemir 30 starting tomorrow -Replete K -BGM q 4 -reg diet -Bolus LR -LR maintenance Visit type - Emergency Visit Emergency Visit: Yes ED Registration Date: 10/25/18 Care time: The patient presented to the Emergency Department on the above date and was hospitalized for further evaluation of their emergent condition. - New Patient This patient is new to me today: Yes Date on this admission: 10/25/18 - Critical Care Critical Care patient: No ATTENDING PHYSICIAN STATEMENT I saw and evaluated the patient. I reviewed the resident's note and discussed the case with the resident. I agree with the resident's findings and plan as documented. SUBJECTIVE: OBJECTIVE: ASSESSMENT AND PLAN: <Kuldip Boston - Last Filed: 10/26/18 07:37> Seen and examined; agree with above. Verified all carrillo parts of history and PE. In summation thhe patient is on Lantus 30 and has been getting hypoglycemic symptoms with this after they were switched from Levemir to Lantus. She was having cramps and dizziness. Then she couldn't get the insulin due to insurance issue and was found to just use short acting. Metabolic acidosis with + ketones but no open AG endorse presence of DKA, but gap remained closed without her having to go on drip. Bolused additional fluids and given long acting. Her DKA remained resolved. Will elucidate her insulin regimine and do what we can to direct compliance. VS, labs, imaging reviewed NAD, AAO, resting in bed NC AT EOMI PERRLA RRR s1/2 NT ND +BS CN2-12 wnl, no fnd Normal mood, appropriate behavior Problems include: -Uncontrolled DM -Overweight -DKA ATTENDING PHYSICIAN STATEMENT I saw and evaluated the patient. I reviewed the resident's note and discussed the case with the resident. I agree with the resident's findings and plan as documented. SUBJECTIVE: OBJECTIVE: ASSESSMENT AND PLAN:
[2018-10-25 20:24] VITALS: BMI 28.8
[2018-10-25] MEDS ORDERED: CELECOXIB 200 MG CAPSULE PO ONE (20:56)
[2018-10-25] MEDS ORDERED: CYCLOBENZAPRINE HCL 10 MG TABLET (FP) PO ONE (21:39)
[2018-10-26] MEDS: INSULIN SLIDING SCALE (NOVOLOG) 1 VIAL SQ SCH ×2 (06:43→06:44)
--- NOTE | 2018-10-26 07:38 | DS ---
Physical Exam: SUBJECTIVE: Patient seen and examined; no new complaints this AM. Gap closed and CO2 continues to trend up, she is tolerating food. Last fingerstick 150s. *Spoke to social work. Our hospital pharmacy ([email or web address]) can help her with arreola. Sent harjinder with supplies to [facility] and ordered nursing to provide teaching. They will and she will be discharged. If not I will call and try to complete a prior auth but nobody answered earlier today when I called to confirm levemir coverage (assuming due to weekend hours). Confirmed with her insurance she is covered with Lantus flexpen. She will be discharged on 28 units qAM lantus with SSI coverage and close followup with PCP and referral to endocrine. Her gap never opened, CO2 improved, fsg 100s, and no new complaints. OBJECTIVE: Vital Signs Period Temp Pulse Resp BP Sys/Jaramillo Pulse Ox Last 24 Hr 97.5 F-99.3 F 84-120 13-19 93-114/54-73 99-100 PHYSICAL EXAM GENERAL: The patient is awake, alert, and fully oriented, in no acute distress. HEAD: Normal with no signs of trauma. EYES: PERRL, extraocular movements intact, sclera anicteric, conjunctiva clear. ENT: Ears normal, nares patent, oropharynx clear without exudates NECK: Trachea midline, full range of motion, supple. LUNGS: Breath sounds equal, clear to auscultation bilaterally, no wheezes HEART: Regular rate and rhythm, S1, S2 without murmur, rub or gallop. ABDOMEN: Soft, nontender, nondistended, normoactive bowel sounds EXTREMITIES: 2+ pulses, warm, well-perfused, no edema. NEUROLOGICAL: Cranial nerves II through XII grossly intact. PSYCH: Normal mood, normal affect. SKIN: Warm, dry, normal turgor, no rashes or lesions noted. LABS Laboratory Results - last 24 hr 10/25/18 10/25/18 10/25/18 10:20 10:20 10:30 WBC RBC Hgb Hct MCV MCH MCHC RDW Plt Count MPV Absolute Neuts (auto) Neutrophils % Lymphocytes % Monocytes % Eosinophils % Basophils % Nucleated RBC % PT with INR INR PTT (Actin FS) VBG pH POC VBG pCO2 POC VBG pO2 VBG HCO3 VBG O2 Sat (Ronna) VBG Base Excess Sodium Potassium Chloride Carbon Dioxide Anion Gap BUN Creatinine Est GFR (CKD-EPI)AfAm Est GFR (CKD-EPI)NonAf POC Glucometer Random Glucose Lactic Acid 1.2 Calcium Magnesium Total Bilirubin AST ALT Alkaline Phosphatase Troponin I B-Natriuretic Peptide Total Protein Albumin Lipase Urine Color Yellow Urine Appearance Clear Urine pH 5.0 Ur Specific [place] 1.031 Urine Protein Trace Urine Glucose (UA) 3+ H Urine Ketones 4+ H Urine Blood 1+ H Urine Nitrite Negative Urine Bilirubin Negative Urine Urobilinogen 0.2 Ur Leukocyte Esterase Negative Urine WBC (Auto) 1 Urine RBC (Auto) 2 Urine Casts (Auto) 2 U Epithel Cells (Auto) 1.4 Urine Bacteria (Auto) 27.3 Urine HCG, Qual Negative Acetone, Qual 10/25/18 10/25/18 10/25/18 10:30 10:30 10:30 WBC 10.2 H RBC 4.55 Hgb 13.5 Hct 39.9 D MCV 87.8 MCH 29.7 MCHC 33.8 RDW 13.0 Plt Count 206 D MPV 9.4 Absolute Neuts (auto) 8.9 H Neutrophils % 86.8 H D Lymphocytes % 8.8 D Monocytes % 3.9 Eosinophils % 0.2 Basophils % 0.3 Nucleated RBC % 0 PT with INR INR PTT (Actin FS) Cancelled VBG pH POC VBG pCO2 POC VBG pO2 VBG HCO3 VBG O2 Sat (Ronna) VBG Base Excess Sodium 133 L Potassium 3.2 L Chloride 106 Carbon Dioxide 12 L Anion Gap 15 BUN 13.6 Creatinine 0.8 Est GFR (CKD-EPI)AfAm 111.48 Est GFR (CKD-EPI)NonAf 96.19 POC Glucometer Random Glucose 296 H Lactic Acid Calcium 8.4 L Magnesium 1.9 Total Bilirubin 0.6 AST 10 L ALT 18 Alkaline Phosphatase 87 Troponin I < 0.02 B-Natriuretic Peptide 27.8 Total Protein 6.8 Albumin 3.7 Lipase 80 Urine Color Urine Appearance Urine pH Ur Specific [place] Urine Protein Urine Glucose (UA) Urine Ketones Urine Blood Urine Nitrite Urine Bilirubin Urine Urobilinogen Ur Leukocyte Esterase Urine WBC (Auto) Urine RBC (Auto) Urine Casts (Auto) U Epithel Cells (Auto) Urine Bacteria (Auto) Urine HCG, Qual Acetone, Qual 10/25/18 10/25/18 10/25/18 10:30 10:30 10:30 WBC RBC Hgb Hct MCV MCH MCHC RDW Plt Count MPV Absolute Neuts (auto) Neutrophils % Lymphocytes % Monocytes % Eosinophils % Basophils % Nucleated RBC % PT with INR 12.50 INR 1.06 PTT (Actin FS) 32.2 VBG pH 7.29 L POC VBG pCO2 27.0 L POC VBG pO2 < 49 H VBG HCO3 12.6 L VBG O2 Sat (Ronna) 71.0 VBG Base Excess -12.4 L Sodium Potassium Chloride Carbon Dioxide Anion Gap BUN Creatinine Est GFR (CKD-EPI)AfAm Est GFR (CKD-EPI)NonAf POC Glucometer Random Glucose Lactic Acid Calcium Magnesium Total Bilirubin AST ALT Alkaline Phosphatase Troponin I B-Natriuretic Peptide Total Protein Albumin Lipase Urine Color Urine Appearance Urine pH Ur Specific [place] Urine Protein Urine Glucose (UA) Urine Ketones Urine Blood Urine Nitrite Urine Bilirubin Urine Urobilinogen Ur Leukocyte Esterase Urine WBC (Auto) Urine RBC (Auto) Urine Casts (Auto) U Epithel Cells (Auto) Urine Bacteria (Auto) Urine HCG, Qual Acetone, Qual Positive large 3+ H 10/25/18 10/25/18 10/25/18 10:36 14:45 14:45 WBC RBC Hgb Hct MCV MCH MCHC RDW Plt Count MPV Absolute Neuts (auto) Neutrophils % Lymphocytes % Monocytes % Eosinophils % Basophils % Nucleated RBC % PT with INR INR PTT (Actin FS) VBG pH POC VBG pCO2 POC VBG pO2 VBG HCO3 VBG O2 Sat (Ronna) VBG Base Excess Sodium 139 Potassium 3.9 Chloride 113 H Carbon Dioxide 15 L Anion Gap 11 BUN 10.0 Creatinine 0.6 Est GFR (CKD-EPI)AfAm 137.83 Est GFR (CKD-EPI)NonAf 118.92 POC Glucometer 275 115 Random Glucose 115 H Lactic Acid Calcium 7.6 L Magnesium Total Bilirubin AST ALT Alkaline Phosphatase Troponin I B-Natriuretic Peptide Total Protein Albumin Lipase Urine Color Urine Appearance Urine pH Ur Specific [place] Urine Protein Urine Glucose (UA) Urine Ketones Urine Blood Urine Nitrite Urine Bilirubin Urine Urobilinogen Ur Leukocyte Esterase Urine WBC (Auto) Urine RBC (Auto) Urine Casts (Auto) U Epithel Cells (Auto) Urine Bacteria (Auto) Urine HCG, Qual Acetone, Qual Positive small 1+ H 10/25/18 10/26/18 10/26/18 20:41 00:08 06:41 WBC RBC Hgb Hct MCV MCH MCHC RDW Plt Count MPV Absolute Neuts (auto) Neutrophils % Lymphocytes % Monocytes % Eosinophils % Basophils % Nucleated RBC % PT with INR INR PTT (Actin FS) VBG pH POC VBG pCO2 POC VBG pO2 VBG HCO3 VBG O2 Sat (Ronna) VBG Base Excess Sodium Potassium Chloride Carbon Dioxide Anion Gap BUN Creatinine Est GFR (CKD-EPI)AfAm Est GFR (CKD-EPI)NonAf POC Glucometer 334 317 253 Random Glucose Lactic Acid Calcium Magnesium Total Bilirubin AST ALT Alkaline Phosphatase Troponin I B-Natriuretic Peptide Total Protein Albumin Lipase Urine Color Urine Appearance Urine pH Ur Specific [place] Urine Protein Urine Glucose (UA) Urine Ketones Urine Blood Urine Nitrite Urine Bilirubin Urine Urobilinogen Ur Leukocyte Esterase Urine WBC (Auto) Urine RBC (Auto) Urine Casts (Auto) U Epithel Cells (Auto) Urine Bacteria (Auto) Urine HCG, Qual Acetone, Qual HOSPITAL COURSE: Patient suddenly and unexpetedly improved and was able to be dicharged today without requiring further inpatient care Date of Admission:10/25/18 Date of Discharge: 10/26/18 Minutes to complete discharge: 33 Discharge Summary Reason For Visit: DIABETIC KETOACIDOSIS Current Active Problems DKA (diabetic ketoacidoses) (Acute) - Instructions Diet, Activity, Other Instructions: Diet: Diabetic Diet Activity: Resume previous level of activity Medication Changes: Social work arranged that you will be put back on you LEVEMIR (the old long- acting insulin you used to be on). You will take 30 units daily. This was sent to [facility] (in-hospital pharmacy) and you should pick it up before you leave. I sent diabetic supplies there as well. -Continue your home sliding scale as directed -Stop the Lantus Followup Appointments: -Primary care: 2-3 days. This is essential. -Endocrine: Referral made; please see within [address] Santo. Home Testing: -Monitor your glucose when you wake up and with meals for SSI. If you have problems getting your medication, if you start to feel sick, or if your glucose remains out of control you need to call or return to the ER right away. Referrals: Johnnie Cooney MD [Primary Care Provider] - (2-3 days) Gil Santo MD [Staff Physician] - 1 Month - Home Medications Comprehensive Discharge Medication List: Ambulatory Orders Insulin Sliding Scale [Novolog Vial Sliding Scale -] 0 units SQ TIDAC PRN Insulin (Levemir) [Levemir Flexpen -] 30 units SQ DAILY 10/04/16 Flexeril - 5 mg PO TID PRN 10/25/18 Insulin Glargine,Hum.rec.anlog [Basaglar Kwikpen U-100] 100 unit SQ ASDIR Meloxicam 15 mg PO DAILY PRN 10/25/18 Tramadol HCl [Ultram] 50 mg PO HS PRN MDD 2 tab 10/25/18 This patient is new to me today: No Emergency Visit: No Critical Care patient: No - Discharge Referral Referred to [facility] No
[2018-10-26] MEDS ORDERED: INSULIN (LEVEMIR) 100 UNITS/ML UNITS SQ SCH ×2 (07:45→22:00)
[2018-10-26 07:49] VITALS: BP 108/65; PULSE 88; TEMP 98
[2018-10-26 08:52] LABS: HEMATOCRIT 37.9 % (32.4-45.2); HEMOGLOBIN 12.9 GM/dL (10.7-15.3); MCH 29.4 pg (25.7-33.7); MCHC 34.1 g/dl (32.0-36.0); MEAN CELL VOLUME 86.3 fl (80-96); MEAN PLT VOLUME 9.6 fl (7.5-11.1); PLATELET COUNT 188 K/MM3 (134-434); RBC 4.39 M/mm3 (3.60-5.2); RDW 12.6 % (11.6-15.6)
[2018-10-26 09:01] LABS: BLOOD UREA NITROGEN 7.8 mg/dL (7-18); CREATININE 0.7 mg/dL (0.55-1.3); POTASSIUM 3.9 mmol/L (3.5-5.1)
[2018-10-26] MEDS ORDERED: INSULIN SLIDING SCALE (NOVOLOG) 1 VIAL SQ SCH (09:19)
--- NOTE | 2018-10-26 23:53 | EKG ---
Test Reason : Blood Pressure : / mmHG Vent. Rate : 078 BPM Atrial Rate : 078 BPM P-R Int : 150 ms QRS Dur : 092 ms QT Int : 396 ms P-R-T Axes : 058 071 045 degrees QTc Int : 451 ms NORMAL SINUS RHYTHM NORMAL ECG WHEN COMPARED WITH ECG OF 18-FEB-2018 11:49, NO SIGNIFICANT CHANGE WAS FOUND Confirmed by DARLENE ROSARIO MD ([id number]) on 10/26/2018 11:52:46 PM Referred By: Confirmed By:DARLENE ROSARIO MD
== END 2018-10-26 14:25 | disposition home or self-care (01) ==
LOC: JER 09:54 → INTOOBSV 12:15 → JERBED 12:15 → UNDOADMOB 12:15 → JERBED 17:18 → J6S 19:46
PROVIDERS: ADMIT Internal Medicine; ATTEND Internal Medicine
PROC: 3E0337Z Introduction of Electrolytic and Water Balance Substance into Peripheral Vein, Percutaneous Approach (ICD-10-PCS; principal; 2018-10-25)
PROC: 3E033GC Introduction of Other Therapeutic Substance into Peripheral Vein, Percutaneous Approach (ICD-10-PCS; 2018-10-25)
PROC: 3E013VG Introduction of Insulin into Subcutaneous Tissue, Percutaneous Approach (ICD-10-PCS; 2018-10-25)
DX: E10.10 Type 1 diabetes mellitus with ketoacidosis without coma (principal); Z79.4 Long term (current) use of insulin; E66.3 Overweight; Z68.28 Body mass index [BMI] 28.0-28.9, adult; J45.909 Unspecified asthma, uncomplicated; K58.9 Irritable bowel syndrome, unspecified
CPT/HCPCS: 36415; 80048; 80053; 81003; 82009; 82803; 82962; 83605; 83690; 83735; 83880; 84484; 84703; 85025; 85027; 85610; 85730; 87040; 87086; 93005; 93010; 99285-25; G0378; J7030

== ENCOUNTER 2018-12-04 19:20 | Emergency (ER) | payer OTHER ==
[2018-12-04 19:37] VITALS: BP 136/83; PULSE 80; TEMP 98.2; BMI 28.0
--- NOTE | 2018-12-04 20:04 | PDOC ---
History of Present Illness - General Chief Complaint: Pain Stated Complaint: BODY ACHE Time Seen by Provider: 12/04/18 20:01 - History of Present Illness Initial Comments: 12/04/18 20:03 33-year-old female with polyarthralgia x3 days no systemic symptoms Past History - Past Medical History Allergies/Adverse Reactions: Allergies Allergy/AdvReac Type Severity Reaction Status Date / Time No Known Allergies Allergy Verified 12/04/18 19:37 Home Medications: Ambulatory Orders Insulin Sliding Scale [Novolog Vial Sliding Scale -] 0 units SQ TIDAC PRN Flexeril - 5 mg PO TID PRN 10/25/18 Meloxicam 15 mg PO DAILY PRN 10/25/18 Tramadol HCl [Ultram] 50 mg PO HS PRN MDD 2 tab 10/25/18 Blood Sugar Diagnostic [Test Strips] 1 each MC TID #90 strip 10/26/18 Insulin Glargine,Hum.rec.anlog [Lantus Solostar PEN (NF)] 28 units SQ DAILY #1 pen 10/26/18 Syring-Needl,Disp,Insul,0.3 ml [Insulin Syringe] 1 each MC TID #100 disp.syrin 10/26/18 Anemia: No Asthma: Yes (stable) Cancer: No Cardiac Disorders: No CVA: No COPD: No CHF: No Dementia: No Diabetes: Yes (TYPE 1) GI Disorders: No Disorders: No HTN: No Hypercholesterolemia: No Liver Disease: No Seizures: No Thyroid Disease: No - Surgical History Abdominal Surgery: No Appendectomy: No Cardiac Surgery: No Cholecystectomy: No Gastric Stapling: No GI Surgery: No Lung Surgery: No Neurologic Surgery: No Orthopedic Surgery: No - Reproductive History (#): 11 Para: 4 Therapeutic (s) & number: Yes (4) Spontaneous : 2 - Immunization History Td Vaccination: Yes Immunization Up to Date: Yes - Psycho Social/Smoking Cessation Hx Smoking Status: No Smoking History: Never smoked Years of Tobacco Use: 4 Have you smoked in the past 12 months: No Number of Cigarettes Smoked Daily: 1 Cigars Per Day: 0 Information on smoking cessation initiated: No 'Breaking Loose' booklet given: 04/14/13 Hx Alcohol Use: No Drug/Substance Use Hx: No Substance Use Type: None Review of Systems - Review of Systems Musculoskeletal: Yes: See HPI *Physical Exam - Vital Signs Last Vital Signs Temp Pulse Resp BP Pulse Ox 98.2 F 80 17 136/83 96 12/04/18 19:35 12/04/18 19:35 12/04/18 19:35 12/04/18 19:35 12/04/18 19:35 - Physical Exam Comments: 12/04/18 20:03 GENERAL: The patient is awake, alert, and fully oriented, in no acute distress. HEAD: Normal with no signs of trauma. EYES: sclera anicteric, conjunctiva clear. ENT: Ears normal NECK: Normal range of motion LUNGS: Breath sounds equal, clear to auscultation bilaterally. No wheezes, and no crackles. HEART: S1 and S2 without murmur, rub or gallop. ABDOMEN: Soft, nontender, normoactive bowel sounds. No guarding, no rebound. No masses. EXTREMITIES: Normal range of motion, no edema. No clubbing or cyanosis. No cords, erythema, or tenderness. NEUROLOGICAL: Cranial nerves II through XII grossly intact. Normal speech, normal gait. PSYCH: Normal mood, normal affect. SKIN: Warm, Dry, normal turgor, no rashes or lesions noted. Medical Decision Making - Medical Decision Making 12/04/18 20:03 33-year-old female requesting pain medication she was offered Tylenol and Motrin however she did not like the suggestion and she left Discharge - Discharge Information Problems reviewed: Yes Clinical Impression/Diagnosis: Polyarthralgia Condition: Stable Disposition: ELOPED - Follow up/Referral Referrals: Johnnie Cooney MD [Primary Care Provider] - - Patient Discharge Instructions - Post Discharge Activity
== END 2018-12-04 20:09 | disposition left against medical advice (07) ==
LOC: JERFT 19:20
DX: M25.50 Pain in unspecified joint (principal); J45.909 Unspecified asthma, uncomplicated
CPT/HCPCS: 99282-25

== ENCOUNTER 2019-01-19 02:21 | Emergency (ER) | payer OTHER ==
[2019-01-19 02:29] VITALS: BP 135/84; PULSE 120; TEMP 98.6; BMI 26.9
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
[2019-01-19] MEDS ORDERED: ACETAMINOPHEN 500 MG TABLET (FP) PO ONE (03:23)
[2019-01-19 04:56] LABS: URINE APPEARANCE CLEAR; URINE BILIRUBIN NEGATIVE (NEGATIVE); URINE COLOR YELLOW; URINE GLUCOSE (UA) 3+ (NEGATIVE); URINE KETONE 1+ (NEGATIVE); URINE LEUK ESTERASE NEGATIVE (NEGATIVE); URINE NITRITE NEGATIVE (NEGATIVE); URINE PROTEIN NEGATIVE (NEGATIVE); URINE UROBILINOGEN 0.2 mg/dL (0.2-1.0)
[2019-01-19] MEDS ORDERED: ACETAMINOPHEN 325 MG TABLET (FP) ONE ×2 (06:02→06:03)
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
== END 2019-01-19 07:20 | disposition home or self-care (01) ==
LOC: JER 02:21
DX: Z04.3 Encounter for examination and observation following other accident (principal); W50.0XXA Accidental hit or strike by another person, initial encounter; Y93.89 Activity, other specified; Y92.89 Other specified places as the place of occurrence of the external cause; E10.8 Type 1 diabetes mellitus with unspecified complications; Z79.4 Long term (current) use of insulin
CPT/HCPCS: 70450-TC; 70486-TC; 71101-TC-LT-FY; 72125-TC; 81003; 82962; 84703; 99284-25

== ENCOUNTER 2019-03-18 10:40 | Day surgery (SDC) | payer OTHER ==
[2019-03-17 12:22] VITALS: BMI 28.3
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
[2019-03-18] MEDS ORDERED: IBUPROFEN 600 MG TABLET (FP) PO PRN (12:27)
[2019-03-18] MEDS ORDERED: oxyCODONE HCL 5 MG TABLET PO PRN (12:27)
[2019-03-18] MEDS ORDERED: ONDANSETRON 4 MG/2 ML VIAL IVPUSH PRN (12:27)
[2019-03-18] MEDS ORDERED: IBUPROFEN 800 MG/8 ML IJ IVPB PRN (12:27)
[2019-03-18] MEDS ORDERED: ELECTROLYTE-148 SOLN 1,000 ML IV SCH (12:30)
[2019-03-18] MEDS ORDERED: MIDAZOLAM HCL 2 MG/2 ML SINGLE DOSE VIAL ONE (12:39)
[2019-03-18] MEDS ORDERED: PROPOFOL 20 ML ONE ×2 (12:39→12:54)
[2019-03-18] MEDS ORDERED: ALBUTEROL SO4 HFA INHALER IH ONE (12:40)
[2019-03-18] MEDS ORDERED: DOXYCYCLINE INJECTION 100 MG in DEXTROSE 5%-WATER - 100 ML IVPB ONE (13:25)
[2019-03-18] MEDS ORDERED: IBUPROFEN 800 MG/8 ML IJ IVPB ONE ×2 (13:39→14:30)
[2019-03-18] MEDS ORDERED: DOXYCYCLINE HYCLATE 100 MG VIAL IVPB ONE (13:43)
[2019-03-18 17:13] VITALS: BP 90/52; PULSE 73; TEMP 98.5
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
--- NOTE | 2019-03-20 18:46 | PATH ---
Surgical Pathology Report Patient Name: BLANCA REYNOLDS [facility]. Rec. #: [id number] /Age/Gender: 1985 (Age: 34) / F Account: [id number] Location: [facility] Taken: 03/18/2019 Received: 03/19/2019 Reported: 03/20/2019 Physicians: Jessica Cheney M.D. Specimen(s) Received PRODUCTS OF CONCEPTION Clinical History Missed Final Diagnosis PRODUCTS OF CONCEPTION: CHORIONIC VILLI PRESENT, CONSISTENT WITH PRODUCTS OF CONCEPTION. SEPARATE SECRETORY TYPE ENDOMETRIUM AND ONE FRAGMENT OF SQUAMOUS EPITHELIUM WITH MARKED CHRONIC INFLAMMATION. Electronically Signed Beto Lopes M.D. Gross Description Received in formalin labeled "products of conception," is a 2.8 x 1.6 x 0.3 cm aggregate of figueroa-brown soft tissue fragments admixed with mucus. No definitive villous tissue or somatic tissue is identified. The formalin is filtered and the specimen is entirely submitted in one cassette. /03/19/2019 [facility]03/19/2019
== END 2019-03-18 16:50 | disposition home or self-care (01) ==
LOC: JASU-SURG 10:40
PROVIDERS: ATTEND Obstetrics & Gynecology
PROC: 10D17ZZ Extraction of Products of Conception, Retained, Via Natural or Artificial Opening (ICD-10-PCS; principal; 2019-03-18 13:30)
DX: O02.1 Missed abortion (principal); E11.9 Type 2 diabetes mellitus without complications; Z79.4 Long term (current) use of insulin
CPT/HCPCS: 82962; 94760

== ENCOUNTER 2020-01-31 14:28 | Emergency (ER) | payer OTHER ==
[2020-01-31 14:40] VITALS: BP 102/67; PULSE 89; TEMP 99.1
[2020-01-31] MEDS ORDERED: ACETAMINOPHEN 500 MG TABLET (FP) PO ONE (16:36)
[2020-01-31] MEDS ORDERED: ACETAMINOPHEN 325 MG TABLET (FP) ONE (16:45)
[2020-01-31 17:04] LABS: PH,URINE 5.5 (5.0-8.0); URINE APPEARANCE CLEAR; URINE BILIRUBIN NEGATIVE (NEGATIVE); URINE COLOR YELLOW; URINE GLUCOSE (UA) 3+ (NEGATIVE); URINE KETONE NEGATIVE (NEGATIVE); URINE LEUK ESTERASE NEGATIVE (NEGATIVE); URINE NITRITE NEGATIVE (NEGATIVE); URINE PROTEIN NEGATIVE (NEGATIVE); URINE UROBILINOGEN 0.2 mg/dL (0.2-1.0)
[2020-01-31 17:09] LABS: HCG,QUALITATIVE URINE Positive
== END 2020-01-31 18:55 | disposition home or self-care (01) ==
LOC: JER 14:28
DX: O26.891 Other specified pregnancy related conditions, first trimester (principal); R51.9 Headache, unspecified; Z3A.01 Less than 8 weeks gestation of pregnancy
CPT/HCPCS: 36415; 76817-TC; 81003; 84702; 84703; 87086; 99284-25; C9803; U0003

== ENCOUNTER 2020-03-09 05:28 | Day surgery (SDC) | payer OTHER ==
[2020-03-04 15:29] VITALS: BMI 31.8
[2020-03-09] MEDS ORDERED: VANCOMYCIN 1,000 MG VIAL (RESTRICTED TO ID ONLY) ONE (07:55)
[2020-03-09] MEDS ORDERED: ceFAZolin SODIUM 1 GM VIAL ONE (07:55)
[2020-03-09] MEDS ORDERED: oxyCODONE HCL 5 MG TABLET PO PRN ×2 (10:27→10:32)
[2020-03-09] MEDS ORDERED: IBUPROFEN 600 MG TABLET (FP) PO PRN (10:27)
[2020-03-09] MEDS ORDERED: ONDANSETRON 4 MG/2 ML VIAL IVPUSH PRN ×2 (10:27→10:32)
[2020-03-09] MEDS ORDERED: IBUPROFEN 800 MG/8 ML IJ IVPB PRN (10:27)
[2020-03-09] MEDS ORDERED: ELECTROLYTE-148 SOLN 1,000 ML IV SCH (10:30)
[2020-03-09] MEDS ORDERED: PROPOFOL 20 ML ONE (10:36)
[2020-03-09] MEDS ORDERED: MIDAZOLAM HCL 2 MG/2 ML SINGLE DOSE VIAL ONE (10:36)
[2020-03-09] MEDS ORDERED: LACTATED RINGERS SOLUTION 1,000 ML IV SCH (10:45)
[2020-03-09] MEDS ORDERED: DOXYCYCLINE INJECTION 100 MG in DEXTROSE 5%-WATER 100 ML IVPB ONE (11:15)
[2020-03-09] MEDS ORDERED: oxyCODONE HCL 5 MG TABLET ONE (13:47)
[2020-03-09 15:33] VITALS: BP 108/64; PULSE 83; TEMP 98
== END 2020-03-09 15:20 | disposition home or self-care (01) ==
LOC: JASU-SURG 05:28
PROVIDERS: ATTEND Obstetrics & Gynecology
PROC: 10D17ZZ Extraction of Products of Conception, Retained, Via Natural or Artificial Opening (ICD-10-PCS; principal; 2020-03-09 10:30)
DX: O02.1 Missed abortion (principal); E11.9 Type 2 diabetes mellitus without complications; Z96.41 Presence of insulin pump (external) (internal); Z79.4 Long term (current) use of insulin
CPT/HCPCS: 86850; 86900; 86901; 88305-TC; 94760

== ENCOUNTER 2020-05-11 04:16 | Day surgery (SDC) | payer OTHER ==
[2020-05-11 06:37] VITALS: BMI 30.9
[2020-05-11] MEDS ORDERED: MIDAZOLAM HCL 2 MG/2 ML SINGLE DOSE VIAL ONE ×2 (07:28→07:31)
[2020-05-11] MEDS ORDERED: DEXAMETHASONE SOD PHOSPHATE 4 MG/1 ML VIAL ONE ×2 (07:28→07:56)
[2020-05-11] MEDS ORDERED: ONDANSETRON 4 MG/2 ML VIAL ONE ×2 (07:28→07:56)
[2020-05-11] MEDS ORDERED: PROPOFOL 20 ML ONE ×5 (07:31→08:05)
[2020-05-11] MEDS ORDERED: SUCCINYLCHOLINE CHLORIDE 200 MG/10 ML SYRINGE ONE (07:31)
[2020-05-11] MEDS ORDERED: IODINE/POTASSIUM IODIDE 5%/10% 14 ML BOTTLE NR ONE (07:50)
[2020-05-11] MEDS ORDERED: LIDOCAINE HCL/PF 2% SDV 5ML VIAL ONE (07:56)
[2020-05-11] MEDS ORDERED: oxyCODONE HCL 5 MG TABLET PO PRN ×3 (08:07→08:31)
[2020-05-11] MEDS ORDERED: ONDANSETRON 4 MG/2 ML VIAL IVPUSH PRN ×2 (08:07→08:31)
[2020-05-11] MEDS ORDERED: LACTATED RINGERS SOLUTION 1,000 ML IV SCH (08:15)
[2020-05-11] MEDS ORDERED: IBUPROFEN 800 MG/8 ML IJ IVPB PRN (08:31)
[2020-05-11] MEDS ORDERED: IBUPROFEN 600 MG TABLET (FP) PO PRN (08:31)
[2020-05-11] MEDS ORDERED: ELECTROLYTE-148 SOLN 1,000 ML IV SCH (08:45)
[2020-05-11 09:30] VITALS: TEMP 97.4
[2020-05-11] MEDS ORDERED: oxyCODONE HCL 5 MG TABLET ONE (11:17)
[2020-05-11 12:18] VITALS: BP 100/62; PULSE 84
== END 2020-05-11 12:05 | disposition home or self-care (01) ==
LOC: JASU-SURG 04:16
PROVIDERS: ATTEND Obstetrics & Gynecology
PROC: 0UBC7ZX Excision of Cervix, Via Natural or Artificial Opening, Diagnostic (ICD-10-PCS; principal; 2020-05-11 07:30)
DX: N87.1 Moderate cervical dysplasia (principal)
CPT/HCPCS: 88305-TC; 88307-TC; 94760

== ENCOUNTER 2020-07-26 13:10 | Emergency (ER) | payer OTHER ==
[2020-07-26 13:18] VITALS: BP 114/78; PULSE 70; TEMP 98.4; BMI 32.2
[2020-07-26] MEDS ORDERED: KETOROLAC TROMETHAMINE 60 MG/2 ML VIAL IM ONE (13:58)
[2020-07-26] MEDS ORDERED: KETOROLAC TROMETHAMINE 60 MG/2 ML VIAL ONE (14:00)
== END 2020-07-26 14:24 | disposition home or self-care (01) ==
LOC: JERFT 13:10 → JER 13:10 → JERFT 14:24
PROC: 3E0233Z Introduction of Anti-inflammatory into Muscle, Percutaneous Approach (ICD-10-PCS; principal; 2020-07-26)
DX: L24.5 Irritant contact dermatitis due to other chemical products (principal)
CPT/HCPCS: 99284-25

== ENCOUNTER 2020-08-14 09:05 | Emergency (ER) | payer OTHER ==
[2020-08-14 09:24] VITALS: BP 97/56; PULSE 80; TEMP 99.1; BMI 31.8
[2020-08-14 09:36] LABS: HCG,QUALITATIVE URINE Positive
[2020-08-14 10:01] LABS: EPITHELIAL CELLS FEW /hpf
== END 2020-08-14 12:27 | disposition home or self-care (01) ==
LOC: FER 09:05
DX: O20.8 Other hemorrhage in early pregnancy (principal)
CPT/HCPCS: 36415; 76817-TC; 81003; 81015; 84702; 84703; 86850; 86900; 86901; 87086; 99284-25

== ENCOUNTER 2020-08-23 00:48 | Emergency (ER) | payer OTHER ==
[2020-08-23 01:01] VITALS: BP 116/79; PULSE 78; TEMP 98; BMI 32.8
[2020-08-23 01:54] LABS: BASO % 0.4 % (0-2.0); EOS % 1.7 % (0-4.5); HEMATOCRIT 37.7 % (32.4-45.2); HEMOGLOBIN 12.7 GM/dL (10.7-15.3); LYMPH % 27.8 % (8-40); MCH 28.9 pg (25.7-33.7); MCHC 33.7 g/dl (32.0-36.0); MEAN CELL VOLUME 85.8 fl (80-96); MEAN PLT VOLUME 8.9 fl (7.5-11.1); MONO % 8.3 % (3.8-10.2); NEUT % 61.8 % (42.8-82.8); PLATELET COUNT 209 10^3/uL (134-434); RDW 13.8 % (11.6-15.6); WHITE BLOOD COUNT 10.8 K/mm3 (4.0-10.0)
[2020-08-23 02:05] LABS: INR 0.96 (0.83-1.09); PROTHROMBIN TIME (PATIENT) 11.8 SEC (9.7-13.0)
[2020-08-23 02:07] LABS: ACTIVATED PTT 28.4 SECONDS (25.2-36.5)
[2020-08-23 02:41] LABS: CHLORIDE 105 mmol/L (98-107); SODIUM 140 mmol/L (136-145)
[2020-08-23 02:44] LABS: ALBUMIN 3.5 g/dl (3.4-5.0); ANION GAP 8 MMOL/L (8-16); BLOOD UREA NITROGEN 16.8 mg/dL (7-18); CO2 26 mmol/L (21-32)
[2020-08-23 02:47] LABS: CREATININE 0.5 mg/dL (0.55-1.3); SGOT/AST 15 U/L (15-37); SGPT/ALT 18 U/L (13-61)
[2020-08-23 02:48] LABS: BILIRUBIN,TOTAL 0.2 mg/dL (0.2-1); TOT PROT 6.8 g/dl (6.4-8.2)
[2020-08-23 02:50] LABS: ALK PHOS 66 U/L (45-117)
[2020-08-23 03:31] LABS: GLUCOSE,RANDOM 39 mg/dL (74-106)
== END 2020-08-23 03:29 | disposition home or self-care (01) ==
LOC: JER 00:48
DX: O26.851 Spotting complicating pregnancy, first trimester (principal); Z3A.08 8 weeks gestation of pregnancy
CPT/HCPCS: 36415; 76801-TC; 80053; 84702; 85025; 85610; 85730; 86850; 86900; 86901; 99284-25

== ENCOUNTER 2021-02-04 11:19 | Emergency (ER) | payer OTHER ==
[2021-02-04 11:34] VITALS: BP 103/68; PULSE 86; TEMP 97.7; BMI 35.5
[2021-02-07 17:08] LABS: SARS-CoV-2 NAA Detected (Not Detected)
== END 2021-02-04 13:54 | disposition home or self-care (01) ==
LOC: JER 11:19
DX: O98.513 Other viral diseases complicating pregnancy, third trimester (principal); Z3A.32 32 weeks gestation of pregnancy
CPT/HCPCS: 87070; 99283-25; C9803; U0003; U0005

== ENCOUNTER 2021-03-28 08:15 | Inpatient (IN) | payer OTHER ==
[2021-03-28 09:45] VITALS: BMI 37.8
[2021-03-28 11:06] LABS: BASO % 0.4 % (0-2.0); EOS % 1.8 % (0-4.5); HEMATOCRIT 33.6 % (32.4-45.2); HEMOGLOBIN 10.9 GM/dL (10.7-15.3); LYMPH % 14.7 % (8-40); MCHC 32.5 g/dl (32.0-36.0); MEAN CELL VOLUME 76.9 fl (80-96); MEAN PLT VOLUME 9.8 fl (7.5-11.1); MONO % 6.6 % (3.8-10.2); NEUT % 76.5 % (42.8-82.8); PLATELET COUNT 156 10^3/uL (134-434); RBC 4.37 M/mm3 (3.60-5.2); RDW 14.7 % (11.6-15.6); WHITE BLOOD COUNT 7.4 K/mm3 (4.0-10.0)
[2021-03-28 11:21] LABS: INR 0.98 (0.83-1.09); PROTHROMBIN TIME (PATIENT) 11.3 SEC (9.7-13.0)
[2021-03-28 11:24] LABS: ACTIVATED PTT 28.2 SECONDS (25.2-36.5)
[2021-03-28 11:30] LABS: CALCIUM 8.6 mg/dL (8.5-10.1)
[2021-03-28 11:34] LABS: CREATININE 0.6 mg/dL (0.55-1.3)
[2021-03-28 12:25] LABS: HIV INTERPRETATION NEGATIVE (NEGATIVE)
[2021-03-28] MEDS ORDERED: PATIENT'S OWN MEDICATION (NON-FORMULARY) (Insulin Pump/Infus. Set/Meter [Accu-Chek Combo S SQ SCH (17:30)
[2021-03-28] MEDS: PATIENT'S OWN MEDICATION (NON-FORMULARY) (Insulin Pump/Infus. Set/Meter [Accu-Chek Combo S SQ SCH (19:00)
[2021-03-28] MEDS ORDERED: ELECTROLYTE-148 SOLN 500 ML IV SCH (23:15)
[2021-03-29] MEDS: ELECTROLYTE-148 SOLN 1,000 ML IV SCH (00:10)
[2021-03-29] MEDS ORDERED: BUTORPHANOL TARTRATE 2 MG/ML VIAL IVPB ONE (00:15)
[2021-03-29] MEDS ORDERED: PROMETHAZINE HCL 25 MG/1 ML VIAL IVPB ONE (00:15)
[2021-03-29] MEDS ORDERED: BUTORPHANOL TARTRATE 2 MG/ML VIAL ONE ×2 (00:25→10:06)
[2021-03-29] MEDS ORDERED: PROMETHAZINE HCL 25 MG/1 ML VIAL ONE ×2 (00:25→10:06)
[2021-03-29] MEDS ORDERED: BUTORPHANOL TARTRATE 1 MG/ML VIAL IVPB ONE (01:30)
[2021-03-29] MEDS ORDERED: OXYTOCIN 30 UNITS in 0.9% NS 30 UNIT/500 ML INFUS.BAG IVPB ONE (08:45)
[2021-03-29] MEDS ORDERED: PROMETHAZINE HCL 25 MG/1 ML VIAL IVPUSH ONE (09:24)
[2021-03-29] MEDS ORDERED: BUTORPHANOL TARTRATE 1 MG/ML VIAL IVPUSH ONE (09:24)
[2021-03-29] MEDS ORDERED: AMPICILLIN - 2 GM in SODIUM CHLORIDE 100 ML IVPB ONE (09:28)
[2021-03-29] MEDS ORDERED: OXYTOCIN 30 UNITS in 0.9% NS 30 UNIT/500 ML INFUS.BAG IVPB SCH (09:30)
[2021-03-29] MEDS ORDERED: AMPICILLIN SODIUM 2 GM VIAL ONE (09:31)
[2021-03-29] MEDS ORDERED: ELECTROLYTE-148 SOLN 1,000 ML IV SCH (09:45)
[2021-03-29] MEDS ORDERED: DEXTROSE 5%-LACTATED RINGERS 1,000 ML IV SCH (09:45)
[2021-03-29] MEDS: PATIENT'S OWN MEDICATION (NON-FORMULARY) (Insulin Pump/Infus. Set/Meter [Accu-Chek Combo S SQ SCH ×3 (10:00→19:21)
[2021-03-29] MEDS: AMPICILLIN - 1 GM in SODIUM CHLORIDE 100 ML IVPB SCH ×3 (13:30→21:00)
[2021-03-29] MEDS ORDERED: AMPICILLIN SODIUM 1 GM VIAL ONE ×3 (13:30→20:40)
[2021-03-29] MEDS ORDERED: FENTANYL/BUPIVACAINE/NS/PF - PCEA - 50 ML DISP.SYRIN EP ONE ×2 (14:15→19:35)
[2021-03-29] MEDS ORDERED: BUPIVACAINE HCL/PF 0.25% (2.5MG/ML) 10 ML VIAL ONE ×2 (14:16→20:46)
[2021-03-29] MEDS ORDERED: NALOXONE HCL 0.4 MG/ML VIAL IVPUSH PRN (15:02)
[2021-03-29] MEDS ORDERED: FENTANYL/BUPIVACAINE/NS/PF - PCEA - 50 ML DISP.SYRIN EP SCH (15:15)
[2021-03-29] MEDS ORDERED: OXYTOCIN 20 UNITS in 0.9% NS 20 UNIT/1,000 ML INFUS.BAG IV ONE (20:30)
[2021-03-29] MEDS ORDERED: LIDOCAINE HCL 1% PRESERVATIVE FREE - 30ML VIAL ONE (20:46)
[2021-03-30] MEDS ORDERED: FENTANYL/BUPIVACAINE/NS/PF - PCEA - 50 ML DISP.SYRIN EP ONE (00:05)
[2021-03-30] MEDS ORDERED: AMPICILLIN SODIUM 1 GM VIAL ONE (00:35)
[2021-03-30] MEDS: AMPICILLIN - 1 GM in SODIUM CHLORIDE 100 ML IVPB SCH (01:20)
[2021-03-30] MEDS: ELECTROLYTE-148 SOLN 1,000 ML IV SCH (01:23)
[2021-03-30] MEDS ORDERED: ACETAMINOPHEN 325 MG TABLET (FP) PO PRN (02:40)
[2021-03-30] MEDS ORDERED: WITCH HAZEL 50% (TUCKS) 40 PAD/JAR PAD TP PRN (02:40)
[2021-03-30] MEDS ORDERED: METHYLERGONOVINE MALEATE 0.2 MG/1 ML AMP IM PRN (02:40)
[2021-03-30] MEDS ORDERED: BENZOCAINE 20% 57 GM BOTTLE TP PRN (02:40)
[2021-03-30] MEDS ORDERED: BENZOCAINE 28 GM HEMORRHOIDAL OINTMENT TP PRN (02:40)
[2021-03-30] MEDS ORDERED: BISACODYL 10 MG SUPP.RECT RC PRN (02:40)
[2021-03-30] MEDS ORDERED: oxyCODONE HCL 5 MG TABLET PO PRN (02:40)
[2021-03-30] MEDS ORDERED: OXYTOCIN 20 UNITS in 0.9% NS 20 UNIT/1,000 ML INFUS.BAG IV SCH (02:45)
[2021-03-30] MEDS: IBUPROFEN 600 MG TABLET (FP) PO PRN ×2 (03:00→16:22)
[2021-03-30 04:11] LABS: CORD BASE EXCESS -3.4 mmol/L (0-2); CORD HCO3 22.7 mmHg (20-29); CORD PCO2 44.3 mmHg (30-78); CORD pH 7.328 (7.14-7.44)
[2021-03-30] MEDS: PATIENT'S OWN MEDICATION (NON-FORMULARY) (Insulin Pump/Infus. Set/Meter [Accu-Chek Combo S SQ SCH ×3 (10:38→19:58)
[2021-03-31] MEDS: IBUPROFEN 600 MG TABLET (FP) PO PRN ×3 (06:07→20:50)
[2021-03-31 07:00] LABS: BASO % 0.3 % (0-2.0); HEMATOCRIT 28.6 % (32.4-45.2); HEMOGLOBIN 9.3 GM/dL (10.7-15.3); LYMPH % 17.4 % (8-40); MCH 25.1 pg (25.7-33.7); MCHC 32.5 g/dl (32.0-36.0); MEAN CELL VOLUME 77.2 fl (80-96); MEAN PLT VOLUME 10.3 fl (7.5-11.1); NEUT % 72.3 % (42.8-82.8); PLATELET COUNT 136 10^3/uL (134-434); RDW 14.5 % (11.6-15.6); WHITE BLOOD COUNT 9.7 K/mm3 (4.0-10.0)
[2021-03-31] MEDS: PATIENT'S OWN MEDICATION (NON-FORMULARY) (Insulin Pump/Infus. Set/Meter [Accu-Chek Combo S SQ SCH ×3 (10:10→20:50)
[2021-03-31 21:39] VITALS: PULSE 69; TEMP 97.6
[2021-03-31] MEDS ORDERED: SENNOSIDES/DOCUSATE COMBO (SENNA PLUS) TABLET (UD) PO PRN (22:00)
[2021-04-01] MEDS: IBUPROFEN 600 MG TABLET (FP) PO PRN (05:57)
[2021-04-01] MEDS: PATIENT'S OWN MEDICATION (NON-FORMULARY) (Insulin Pump/Infus. Set/Meter [Accu-Chek Combo S SQ SCH (11:11)
[2021-04-01 11:14] VITALS: BP 120/57
== END 2021-04-01 12:25 | disposition home or self-care (01) | DRG 807 ==
LOC: JLDR 08:15 → J3W 17:29 → JLDR 22:40 → J3W 03-30 04:41
PROVIDERS: ADMIT Obstetrics & Gynecology; ATTEND Obstetrics & Gynecology
PROC: 0U7C7ZZ Dilation of Cervix, Via Natural or Artificial Opening (ICD-10-PCS; 2021-03-29)
PROC: 3E033VJ Introduction of Other Hormone into Peripheral Vein, Percutaneous Approach (ICD-10-PCS; 2021-03-29)
PROC: 10E0XZZ Delivery of Products of Conception, External Approach (ICD-10-PCS; principal; 2021-03-30)
DX: O24.02 Pre-existing type 1 diabetes mellitus, in childbirth (principal); Z37.0 Single live birth; Z79.4 Long term (current) use of insulin; Z96.41 Presence of insulin pump (external) (internal); O99.214 Obesity complicating childbirth; E66.9 Obesity, unspecified; O99.824 Streptococcus B carrier state complicating childbirth; Z86.59 Personal history of other mental and behavioral disorders; Z3A.39 39 weeks gestation of pregnancy
CPT/HCPCS: 36415; 36600; 59409; 80048; 82803; 82962; 85025; 85610; 85730; 86780; 86850; 86900; 86901; 86922; 87389; 88307-TC; C9803; U0003; U0005

== ENCOUNTER 2021-08-04 09:19 | Day surgery (SDC) | payer OTHER ==
[2021-07-26 13:24] VITALS: BMI 30.9
[2021-08-04] MEDS ORDERED: PROPOFOL 20 ML ONE ×3 (11:06→12:39)
[2021-08-04] MEDS ORDERED: MIDAZOLAM HCL 2 MG/2 ML SINGLE DOSE VIAL ONE ×4 (11:07→11:53)
[2021-08-04] MEDS ORDERED: DEXAMETHASONE SOD PHOSPHATE 10 MG/1 ML VIAL ONE (11:23)
[2021-08-04] MEDS ORDERED: BUPIVACAINE HCL/PF 0.5% (5 MG/ML) 30 ML VIAL IJ ONE (11:23)
[2021-08-04] MEDS ORDERED: FENTANYL CITRATE/PF 50 MCG/ML VIAL ONE (13:28)
[2021-08-04] MEDS ORDERED: ONDANSETRON 4 MG/2 ML VIAL IVPUSH PRN (14:03)
[2021-08-04] MEDS ORDERED: oxyCODONE HCL 5 MG TABLET PO PRN ×2 (14:03)
[2021-08-04] MEDS ORDERED: ACETAMINOPHEN 325 MG TABLET (FP) PO PRN (14:03)
[2021-08-04] MEDS ORDERED: oxyCODONE HCL 5 MG TABLET ONE (14:42)
[2021-08-04 15:16] VITALS: TEMP 97.8
[2021-08-04 15:20] VITALS: BP 112/66; PULSE 85
== END 2021-08-04 15:20 | disposition home or self-care (01) ==
LOC: FASU 09:19
PROVIDERS: ATTEND Orthopaedic Surgery
PROC: 0PBB4ZZ Excision of Left Clavicle, Percutaneous Endoscopic Approach (ICD-10-PCS; principal; 2021-08-04 12:09)
PROC: 0RNK4ZZ Release Left Shoulder Joint, Percutaneous Endoscopic Approach (ICD-10-PCS; 2021-08-04 12:09)
DX: M75.42 Impingement syndrome of left shoulder (principal)
CPT/HCPCS: 82962; 84703; 94760; J1100

== ENCOUNTER 2022-02-28 16:09 | Emergency (ER) | payer OTHER ==
[2022-02-28 16:17] VITALS: BMI 27.4
[2022-02-28] MEDS ORDERED: IBUPROFEN 400 MG TABLET (FP) PO ONE (17:45)
[2022-02-28] MEDS ORDERED: SODIUM CHLORIDE 0.9% 500 ML INFUS.BAG IV ONE (17:45)
[2022-02-28 17:51] VITALS: BP 111/67; PULSE 60; RESP 16; TEMP 98
[2022-02-28] MEDS ORDERED: ACETAMINOPHEN 500 MG TABLET (FP) PO ONE (17:59)
[2022-02-28] MEDS ORDERED: ACETAMINOPHEN 325 MG TABLET (FP) ONE (18:24)
[2022-02-28 18:28] LABS: EPI CELLS 9 /uL (0-25.1); HYALINE CASTS 0 /uL (0-3.1); URINE APPEARANCE CLEAR; URINE BACTERIA 60 /uL (0-1359); URINE BILIRUBIN NEGATIVE (NEGATIVE); URINE COLOR YELLOW; URINE GLUCOSE (UA) 3+ (NEGATIVE); URINE KETONE NEGATIVE (NEGATIVE); URINE LEUK ESTERASE NEGATIVE (NEGATIVE); URINE NITRITE NEGATIVE (NEGATIVE); URINE PROTEIN NEGATIVE (NEGATIVE); URINE RBC 5 /uL (0-23.9); URINE UROBILINOGEN 0.2 mg/dL (0.2-1.0); URINE WBC 13 /uL (0-25.8)
[2022-02-28 18:29] LABS: BASO % 0.6 % (0-2.0); EOS % 1.8 % (0-4.5); HEMATOCRIT 36.1 % (32.4-45.2); HEMOGLOBIN 11.8 GM/dL (10.7-15.3); LYMPH % 38.2 % (8-40); MCH 27.9 pg (25.7-33.7); MCHC 32.7 g/dl (32.0-36.0); MEAN CELL VOLUME 85.5 fl (80-96); MEAN PLT VOLUME 9.8 fl (7.5-11.1); NEUT % 53.4 % (42.8-82.8); PLATELET COUNT 201 10^3/uL (134-434); RBC 4.23 M/mm3 (3.60-5.2); RDW 14.9 % (11.6-15.6); WHITE BLOOD COUNT 5.5 K/mm3 (4.0-10.0)
[2022-02-28 18:49] LABS: CHLORIDE 105 mmol/L (98-107); SODIUM 140 mmol/L (136-145)
[2022-02-28 18:51] LABS: ALBUMIN 3.2 g/dl (3.4-5.0); ANION GAP 8 MMOL/L (8-16); BLOOD UREA NITROGEN 13.8 mg/dL (7-18); CALCIUM 8.5 mg/dL (8.5-10.1); CO2 27 mmol/L (21-32); GLUCOSE,RANDOM 160 mg/dL (74-106)
[2022-02-28 18:54] LABS: CREATININE 0.6 mg/dL (0.55-1.3)
[2022-02-28 18:55] LABS: SGOT/AST 11 U/L (15-37); SGPT/ALT 15 U/L (13-61)
[2022-02-28 18:56] LABS: BILIRUBIN,TOTAL 0.2 mg/dL (0.2-1); TOT PROT 6.1 g/dl (6.4-8.2)
[2022-02-28 18:57] LABS: ALK PHOS 124 U/L (45-117)
== END 2022-02-28 21:14 | disposition home or self-care (01) ==
LOC: JER 16:09
DX: N80.2 Endometriosis of fallopian tube (principal); N93.9 Abnormal uterine and vaginal bleeding, unspecified
CPT/HCPCS: 36415; 76830-TC; 80053; 81003; 82962; 84702; 85025; 86850; 86900; 86901; 87086; 99284-25; C9803-CS; U0003; U0005

== ENCOUNTER 2022-05-17 10:12 | Inpatient (IN) | payer OTHER ==
[2022-05-17 10:44] LABS: VENOUS BASE EXCESS -11.9 mmol/L (-2-2); VENOUS O2 SATURATION 37.4 % (70-80); VENOUS PCO2 38.5 mmHg (38-52); VENOUS PH 7.214 (7.310-7.410)
[2022-05-17 10:47] LABS: BASO % 0.5 % (0-2.0); EOS % 0.2 % (0-4.5); HEMATOCRIT 43.4 % (32.4-45.2); LYMPH % 21.2 % (8-40); MCH 29.2 pg (25.7-33.7); MCHC 32.2 g/dl (32.0-36.0); MEAN CELL VOLUME 90.7 fl (80-96); MEAN PLT VOLUME 10.8 fl (7.5-11.1); MONO % 4.3 % (3.8-10.2); NEUT % 73.8 % (42.8-82.8); PLATELET COUNT 239 10^3/uL (134-434); RBC 4.78 M/mm3 (3.60-5.2); RDW 16.1 % (11.6-15.6); WHITE BLOOD COUNT 9.6 K/mm3 (4.0-10.0)
[2022-05-17] MEDS ORDERED: ONDANSETRON 4 MG/2 ML VIAL IVPUSH ONE (10:50)
[2022-05-17] MEDS ORDERED: ONDANSETRON 4 MG/2 ML VIAL ONE (10:51)
[2022-05-17] MEDS ORDERED: ACETAMINOPHEN INJECTION 100 ML IVPB ONE (11:05)
[2022-05-17] MEDS ORDERED: SODIUM CHLORIDE 0.9% 1000 ML INFUS.BAG IV ONE ×2 (11:05)
[2022-05-17] MEDS ORDERED: ACETAMINOPHEN 1000 MG/100 ML BAG IVPB ONE ×2 (11:06→18:25)
[2022-05-17 11:19] LABS: CHLORIDE 97 mmol/L (98-107); POTASSIUM 5.5 mmol/L (3.5-5.1); SODIUM 129 mmol/L (136-145)
[2022-05-17] MEDS ORDERED: METOCLOPRAMIDE HCL INJECTION 10 MG/2 ML VIAL IVPUSH ONE (11:21)
[2022-05-17 11:22] LABS: ALBUMIN 3.6 g/dl (3.4-5.0); ANION GAP 17 MMOL/L (8-16); CALCIUM 9.3 mg/dL (8.5-10.1); CO2 15 mmol/L (21-32); LIPASE 107 U/L (73-393)
[2022-05-17 11:25] LABS: CREATININE 0.9 mg/dL (0.55-1.3); SGOT/AST 76 U/L (15-37); SGPT/ALT 65 U/L (13-61)
[2022-05-17 11:26] LABS: BILIRUBIN,TOTAL 0.8 mg/dL (0.2-1); TOT PROT 6.9 g/dl (6.4-8.2)
[2022-05-17 11:27] LABS: ALK PHOS 175 U/L (45-117)
[2022-05-17 11:29] LABS: GLUCOSE,RANDOM 726 mg/dL (74-106)
[2022-05-17] MEDS ORDERED: METOCLOPRAMIDE HCL INJECTION 10 MG/2 ML VIAL ONE (11:31)
[2022-05-17] MEDS ORDERED: INSULIN REGULAR HUMAN 100 UNITS/ML *VIAL* (FOR IVP) IVPUSH ONE (11:41)
[2022-05-17] MEDS ORDERED: KETOROLAC TROMETHAMINE 15 MG/ML VIAL IVPUSH ONE (12:18)
[2022-05-17] MEDS: INSULIN REGULAR 100 UNITS in SODIUM CHLORIDE 99 ML IVPB SCH ×3 (12:30→22:50)
[2022-05-17] MEDS ORDERED: KETOROLAC TROMETHAMINE 15 MG/ML VIAL ONE (12:43)
[2022-05-17 13:20] LABS: URINE APPEARANCE CLEAR; URINE BILIRUBIN NEGATIVE (NEGATIVE); URINE COLOR YELLOW; URINE GLUCOSE (UA) 3+ (NEGATIVE); URINE KETONE 4+ (NEGATIVE); URINE LEUK ESTERASE NEGATIVE (NEGATIVE); URINE NITRITE NEGATIVE (NEGATIVE); URINE PROTEIN NEGATIVE (NEGATIVE); URINE UROBILINOGEN 0.2 mg/dL (0.2-1.0)
[2022-05-17 13:31] LABS: HCG,QUALITATIVE URINE Negative
[2022-05-17] MEDS ORDERED: DEXTROSE 50%-WATER - 25 GM/50 ML VIAL IVPUSH PRN (13:39)
[2022-05-17] MEDS ORDERED: POTASSIUM CHLORIDE 10 MEQ in SODIUM CHLORIDE 0.45% 1,000 ML IV SCH (13:45)
[2022-05-17] MEDS ORDERED: SODIUM CHLORIDE 1,000 ML IV SCH (14:00)
[2022-05-17 14:41] LABS: CHLORIDE 105 mmol/L (98-107); SODIUM 136 mmol/L (136-145)
[2022-05-17 14:42] LABS: ANION GAP 24 MMOL/L (8-16); BLOOD UREA NITROGEN 21.9 mg/dL (7-18); CALCIUM 8.6 mg/dL (8.5-10.1); CO2 7 mmol/L (21-32)
[2022-05-17 14:46] LABS: PHOSPHOROUS 3.7 mg/dL (2.5-4.9)
[2022-05-17 14:47] LABS: GLUCOSE,RANDOM 606 mg/dL (74-106)
[2022-05-17] MEDS ORDERED: SODIUM CHLORIDE 1,000 ML with POTASSIUM CHLORIDE 20 MEQ IV SCH (14:47)
[2022-05-17] MEDS ORDERED: SODIUM CHLORIDE 0.9%/KCL 20 MEQ/1,000 ML INFUS.BAG IV SCH (15:29)
[2022-05-17] MEDS ORDERED: D5-1/2NS+20 MEQ KCL - 20 MEQ/1,000 ML INFUS.BAG IV SCH (16:15)
[2022-05-17 16:49] VITALS: BMI 29.5
[2022-05-17 17:26] LABS: BLOOD UREA NITROGEN 17.2 mg/dL (7-18); CALCIUM 7.8 mg/dL (8.5-10.1); MAGNESIUM 1.8 mg/dL (1.8-2.4)
[2022-05-17 17:30] LABS: PHOSPHOROUS 2.6 mg/dL (2.5-4.9); PHOSPHOROUS 2.8 mg/dL (2.5-4.9)
[2022-05-17] MEDS ORDERED: DEXTROSE 5%-0.45% SALINE 1,000 ML IV SCH ×2 (18:00→20:47)
[2022-05-17] MEDS ORDERED: MAGNESIUM 2GM/50ML STERILE WATER IVPB IVPB ONE (20:47)
[2022-05-17] MEDS ORDERED: TRIMETHOBENZAMIDE HCL 200MG/2ML INJ IM ONE (20:47)
[2022-05-17 21:00] LABS: BLOOD UREA NITROGEN 14.9 mg/dL (7-18); CALCIUM 7.1 mg/dL (8.5-10.1); CREATININE 0.8 mg/dL (0.55-1.3); POTASSIUM 3.6 mmol/L (3.5-5.1)
[2022-05-17] MEDS: MUPIROCIN 2% TOPICAL OINTMENT FOR DECOLONIZATION NS SCH (21:18)
[2022-05-17] MEDS ORDERED: CHLORHEXIDINE GLUCONATE 4% CLEANSER FOR DECOLONIZATION TP SCH (22:00)
[2022-05-17 22:39] LABS: POTASSIUM 3.9 mmol/L (3.5-5.1)
[2022-05-17 22:40] LABS: CALCIUM 8.3 mg/dL (8.5-10.1)
[2022-05-17 22:42] LABS: BLOOD UREA NITROGEN 15.8 mg/dL (7-18)
[2022-05-17 22:45] LABS: CREATININE 0.8 mg/dL (0.55-1.3); PHOSPHOROUS 3.1 mg/dL (2.5-4.9)
[2022-05-18] MEDS ORDERED: INSULIN REGULAR 100 UNITS in SODIUM CHLORIDE 99 ML IVPB SCH (01:57)
[2022-05-18 02:39] LABS: POTASSIUM 3.8 mmol/L (3.5-5.1)
[2022-05-18 02:42] LABS: BLOOD UREA NITROGEN 14.2 mg/dL (7-18); CALCIUM 8.5 mg/dL (8.5-10.1); MAGNESIUM 2.6 mg/dL (1.8-2.4)
[2022-05-18 02:45] LABS: CREATININE 0.9 mg/dL (0.55-1.3); PHOSPHOROUS 2.6 mg/dL (2.5-4.9)
[2022-05-18] MEDS ORDERED: ACETAMINOPHEN INJECTION 100 ML IVPB ONE (03:32)
[2022-05-18] MEDS ORDERED: DEXTROSE 5%-0.45% SALINE 1,000 ML IV SCH (03:57)
[2022-05-18] MEDS ORDERED: ACETAMINOPHEN 500 MG TABLET (FP) PO PRN (05:52)
[2022-05-18] MEDS: INSULIN (LEVEMIR) 100 UNITS/ML UNITS SQ SCH ×2 (06:28→10:42)
[2022-05-18] MEDS: INSULIN SLIDING SCALE (NOVOLOG) 1 VIAL SQ SCH ×2 (06:28→12:24)
[2022-05-18 07:16] LABS: BASO % 0.4 % (0-2.0); EOS % 0.6 % (0-4.5); HEMATOCRIT 34.3 % (32.4-45.2); HEMOGLOBIN 11.6 GM/dL (10.7-15.3); LYMPH % 29.4 % (8-40); MCH 29.3 pg (25.7-33.7); MCHC 33.9 g/dl (32.0-36.0); MEAN CELL VOLUME 86.4 fl (80-96); MONO % 7.8 % (3.8-10.2); NEUT % 61.8 % (42.8-82.8); PLATELET COUNT 179 10^3/uL (134-434); RBC 3.97 M/mm3 (3.60-5.2); WHITE BLOOD COUNT 6.3 K/mm3 (4.0-10.0)
[2022-05-18 07:18] LABS: VENOUS BASE EXCESS -7.4 mmol/L (-2-2); VENOUS O2 SATURATION 81.9 % (70-80); VENOUS PCO2 30.6 mmHg (38-52); VENOUS PH 7.359 (7.310-7.410)
[2022-05-18 07:42] LABS: POTASSIUM 3.7 mmol/L (3.5-5.1)
[2022-05-18 07:44] LABS: BLOOD UREA NITROGEN 11.3 mg/dL (7-18); MAGNESIUM 2.3 mg/dL (1.8-2.4)
[2022-05-18 07:47] LABS: CREATININE 0.8 mg/dL (0.55-1.3); PHOSPHOROUS 2.8 mg/dL (2.5-4.9)
[2022-05-18 07:49] LABS: BILIRUBIN,TOTAL 0.4 mg/dL (0.2-1); TOT PROT 5.2 g/dl (6.4-8.2)
[2022-05-18 07:57] LABS: ALBUMIN 2.7 g/dl (3.4-5.0)
[2022-05-18] MEDS ORDERED: ENOXAPARIN NA (PORCINE) 40 MG/0.4 ML DISP.SYRIN SQ SCH (10:00)
[2022-05-18] MEDS: MUPIROCIN 2% TOPICAL OINTMENT FOR DECOLONIZATION NS SCH (10:47)
[2022-05-18 11:31] VITALS: TEMP 98.2
[2022-05-18 12:31] VITALS: BP 119/69; PULSE 102; RESP 14
== END 2022-05-18 14:15 | disposition home or self-care (01) | DRG 639 ==
LOC: JER 10:12 → JERBED 14:31 → JICU 15:53
PROVIDERS: ADMIT Internal Medicine; ATTEND Internal Medicine
DX: E10.10 Type 1 diabetes mellitus with ketoacidosis without coma (principal)
CPT/HCPCS: 0241U-QW; 36415; 76705-TC; 80048; 80053; 81003; 82010; 82803; 82962; 83036; 83605; 83690; 83735; 84100; 84484; 84702; 84703; 85025; 93005; 93010; 99285-25

== ENCOUNTER 2023-04-22 16:26 | Emergency (ER) | payer OTHER ==
[2023-04-22 16:32] VITALS: RESP 18; TEMP 97.4; BMI 29.2
[2023-04-22] MEDS ORDERED: ALBUTEROL SO4 2.5/IPRATROPIUM 0.5 INH SOL 3 ML VIAL.NEB. NEB ONE (17:10)
[2023-04-22] MEDS: ALBUTEROL SO4 2.5/IPRATROPIUM 0.5 INH SOL 3 ML VIAL.NEB. NEB ONE (17:14)
[2023-04-22 17:46] LABS: BASO % 0.5 % (0-2.0); EOS % 1.1 % (0-4.5); HEMATOCRIT 41.3 % (32.4-45.2); HEMOGLOBIN 13.5 GM/dL (10.7-15.3); LYMPH % 28.8 % (8-40); MCH 29.1 pg (25.7-33.7); MCHC 32.8 g/dl (32.0-36.0); MEAN CELL VOLUME 88.8 fl (80-96); MEAN PLT VOLUME 9.4 fl (7.5-11.1); MONO % 8.1 % (3.8-10.2); NEUT % 61.5 % (42.8-82.8); PLATELET COUNT 176 10^3/uL (134-434); RBC 4.65 M/mm3 (3.60-5.2); RDW 14.4 % (11.6-15.6); WHITE BLOOD COUNT 6.5 K/mm3 (4.0-10.0)
[2023-04-22] MEDS ORDERED: DEXAMETHASONE SOD PHOSPHATE 10 MG/1 ML VIAL ONE (17:58)
[2023-04-22] MEDS: DEXAMETHASONE SOD PHOSPHATE 10 MG/1 ML VIAL PO ONE (18:03)
[2023-04-22 18:08] LABS: THROAT:GRP A STREP NOT DETECTED (NOTDETECTED)
[2023-04-22 18:11] LABS: CHLORIDE 99 mmol/L (98-107); SODIUM 133 mmol/L (136-145)
[2023-04-22 18:13] LABS: CALCIUM 9.5 mg/dL (8.5-10.1)
[2023-04-22 18:14] LABS: ALBUMIN 3.8 g/dl (3.4-5.0); BLOOD UREA NITROGEN 21.6 mg/dL (7-18); CO2 24 mmol/L (21-32)
[2023-04-22 18:17] LABS: CREATININE 0.9 mg/dL (0.55-1.3); SGOT/AST 49 U/L (15-37); SGPT/ALT 38 U/L (13-61)
[2023-04-22 18:19] LABS: BILIRUBIN,TOTAL 0.7 mg/dL (0.2-1); TOT PROT 7.9 g/dl (6.4-8.2)
[2023-04-22 18:20] LABS: ALK PHOS 174 U/L (45-117)
[2023-04-22 18:27] LABS: ANION GAP 10 mmol/L (4-13); GLUCOSE,RANDOM 409 mg/dL (74-106); POTASSIUM 6.2 mmol/L (3.5-5.1)
[2023-04-22] MEDS ORDERED: ACETAMINOPHEN INJECTION 100 ML IVPB ONE (18:57)
[2023-04-22] MEDS ORDERED: INSULIN (NOVOLOG) ASPART 100 UNITS/ML 10ML VIAL ONE (18:57)
[2023-04-22] MEDS: ACETAMINOPHEN 1000 MG/100 ML BAG IVPB ONE (19:08)
[2023-04-22] MEDS: INSULIN (NOVOLOG) ASPART 100 UNITS/ML 10ML VIAL SQ ONE (19:08)
[2023-04-22] MEDS: LACTATED RINGERS SOLUTION 1000 ML INFUS.BAG IV ONE (19:15)
[2023-04-22] MEDS: SODIUM CHLORIDE 0.9% 500 ML INFUS.BAG IV ONE (19:16)
[2023-04-22 19:20] LABS: POTASSIUM 3.6 mmol/L (3.5-5.1)
[2023-04-22 19:23] LABS: BLOOD UREA NITROGEN 21.2 mg/dL (7-18); CALCIUM 8.9 mg/dL (8.5-10.1)
[2023-04-22 19:27] LABS: CREATININE 0.7 mg/dL (0.55-1.3)
[2023-04-22] MEDS: ALBUTEROL SO4 2.5/IPRATROPIUM 0.5 INH SOL 3 ML VIAL.NEB. NEB SCH (21:59)
[2023-04-22 22:33] VITALS: BP 123/68; PULSE 73
== END 2023-04-22 22:37 | disposition home or self-care (01) ==
LOC: JER 16:26
PROC: 3E033NZ Introduction of Analgesics, Hypnotics, Sedatives into Peripheral Vein, Percutaneous Approach (ICD-10-PCS; principal; 2023-04-22)
PROC: 3E013VG Introduction of Insulin into Subcutaneous Tissue, Percutaneous Approach (ICD-10-PCS; 2023-04-22)
PROC: 3E0F7GC Introduction of Other Therapeutic Substance into Respiratory Tract, Via Natural or Artificial Opening (ICD-10-PCS; 2023-04-22)
PROC: 3E0F7GC Introduction of Other Therapeutic Substance into Respiratory Tract, Via Natural or Artificial Opening (ICD-10-PCS; 2023-04-22)
DX: J02.9 Acute pharyngitis, unspecified (principal); R50.9 Fever, unspecified; R06.2 Wheezing; J06.9 Acute upper respiratory infection, unspecified; J45.901 Unspecified asthma with (acute) exacerbation; J04.0 Acute laryngitis; Z20.822 Contact with and (suspected) exposure to COVID-19
CPT/HCPCS: 0241U-QW; 36415; 70491-TC; 71046-TC-FY; 80048; 80053; 82962; 84703; 85025; 87651; 99285-25; J0131; J1100; Q9967

== ENCOUNTER 2023-09-21 06:56 | Emergency (ER) | payer OTHER ==
[2023-09-21 07:05] VITALS: TEMP 97.6; BMI 30.1
[2023-09-21] MEDS ORDERED: ACETAMINOPHEN INJECTION 100 ML IVPB ONE (07:47)
[2023-09-21] MEDS ORDERED: ONDANSETRON 4 MG/2 ML VIAL ONE (07:48)
[2023-09-21] MEDS ORDERED: FAMOTIDINE 20 MG/50 ML IVPB 20 MG/50 ML MG IVPB ONE (07:48)
[2023-09-21] MEDS: ONDANSETRON 4 MG/2 ML VIAL IVPUSH ONE (08:18)
[2023-09-21] MEDS: FAMOTIDINE 20 MG/50 ML IVPB 20 MG/50 ML MG IVPB ONE (08:18)
[2023-09-21] MEDS: ACETAMINOPHEN 1000 MG/100 ML BAG IVPB ONE (08:19)
[2023-09-21] MEDS: LACTATED RINGERS SOLUTION 1000 ML INFUS.BAG IV ONE (08:20)
[2023-09-21 08:30] LABS: VENOUS BASE EXCESS -7.4 mmol/L (-2-2); VENOUS O2 SATURATION 87.9 % (70-80); VENOUS PCO2 28.4 mmHg (38-52); VENOUS PH 7.385 (7.310-7.410)
[2023-09-21 08:31] LABS: BASO % 0.5 % (0-2.0); EOS % 1.2 % (0-4.5); HEMATOCRIT 38.2 % (32.4-45.2); LYMPH % 17.9 % (8-40); MCH 29.1 pg (25.7-33.7); MEAN CELL VOLUME 85.8 fl (80-96); MEAN PLT VOLUME 9.6 fl (7.5-11.1); NEUT % 75.4 % (42.8-82.8); PLATELET COUNT 174 10^3/uL (134-434); RBC 4.45 M/mm3 (3.60-5.2); RDW 13.5 % (11.6-15.6); WHITE BLOOD COUNT 8.4 K/mm3 (4.0-10.0)
[2023-09-21 08:40] LABS: EPI CELLS 4 /uL (0-25.1); HYALINE CASTS 0 /uL (0-3.1); PH,URINE 7.5 (5.0-8.0); URINE APPEARANCE CLEAR; URINE BACTERIA 39 /uL (0-1359); URINE BILIRUBIN NEGATIVE (NEGATIVE); URINE COLOR YELLOW; URINE GLUCOSE (UA) 3+ (NEGATIVE); URINE KETONE NEGATIVE (NEGATIVE); URINE LEUK ESTERASE NEGATIVE (NEGATIVE); URINE NITRITE NEGATIVE (NEGATIVE); URINE PROTEIN TRACE (NEGATIVE); URINE RBC 72 /uL (0-23.9); URINE WBC 6 /uL (0-25.8)
[2023-09-21 08:47] LABS: HCG,QUALITATIVE URINE NEGATIVE
[2023-09-21 09:28] LABS: POTASSIUM 3.8 mmol/L (3.5-5.1)
[2023-09-21 09:31] LABS: ALBUMIN 3.5 g/dl (3.4-5.0); BLOOD UREA NITROGEN 17.7 mg/dL (7-18); CALCIUM 8.8 mg/dL (8.5-10.1)
[2023-09-21 09:35] LABS: CREATININE 0.5 mg/dL (0.55-1.3)
[2023-09-21 09:36] LABS: BILIRUBIN,TOTAL 0.2 mg/dL (0.2-1); TOT PROT 6.6 g/dl (6.4-8.2)
[2023-09-21] MEDS: DICYCLOMINE HCL 20 MG/2 ML AMPUL IM ONE (11:22)
[2023-09-21] MEDS ORDERED: DEXTROSE 50%-WATER 25 GM/50 ML DISP.SYRIN ONE (11:51)
[2023-09-21] MEDS: DEXTROSE 50%-WATER - 25 GM/50 ML VIAL IVPUSH ONE (11:57)
[2023-09-21 14:36] VITALS: BP 104/57; PULSE 65; RESP 18
== END 2023-09-21 15:30 | disposition home or self-care (01) ==
LOC: JER 06:56
PROC: 3E033GC Introduction of Other Therapeutic Substance into Peripheral Vein, Percutaneous Approach (ICD-10-PCS; principal; 2023-09-21)
PROC: 3E033GC Introduction of Other Therapeutic Substance into Peripheral Vein, Percutaneous Approach (ICD-10-PCS; 2023-09-21)
PROC: 3E033NZ Introduction of Analgesics, Hypnotics, Sedatives into Peripheral Vein, Percutaneous Approach (ICD-10-PCS; 2023-09-21)
PROC: 3E023GC Introduction of Other Therapeutic Substance into Muscle, Percutaneous Approach (ICD-10-PCS; 2023-09-21)
DX: R10.11 Right upper quadrant pain (principal); R11.2 Nausea with vomiting, unspecified; R19.7 Diarrhea, unspecified
CPT/HCPCS: 36415; 74177-TC; 76705-TC; 80053; 81003; 82010; 82803; 82962; 83690; 84703; 85025; 87086; 99285-25; J0131; Q9967

== ENCOUNTER 2023-10-06 10:06 | Emergency (ER) | payer OTHER ==
[2023-10-06 10:18] VITALS: BP 106/61; PULSE 85; RESP 20; TEMP 98.8
[2023-10-06] MEDS ORDERED: INSULIN REGULAR HUMAN 100 UNITS/ML *VIAL ONE (11:44)
[2023-10-06] MEDS: INSULIN REGULAR HUMAN 100 UNITS/ML *VIAL SQ ONE ×2 (11:50→11:52)
[2023-10-06] MEDS: INSULIN ASPART SLIDING SCALE (NOVOLOG) 1 VIAL SQ ONE (11:51)
[2023-10-06] MEDS: INSULIN REGULAR HUMAN 100 UNITS/ML *VIAL IVPUSH ONE (11:51)
[2023-10-06] MEDS: SODIUM CHLORIDE 1,000 ML IV STA ×2 (11:51→12:44)
== END 2023-10-06 14:35 | disposition home or self-care (01) ==
LOC: JER 10:06
PROC: 3E0337Z Introduction of Electrolytic and Water Balance Substance into Peripheral Vein, Percutaneous Approach (ICD-10-PCS; principal; 2023-10-06)
DX: E10.65 Type 1 diabetes mellitus with hyperglycemia (principal); Z96.41 Presence of insulin pump (external) (internal)
CPT/HCPCS: 82962; 99284-25